=== PATIENT | male | born 1960 | race Caucasian/White ===

== ENCOUNTER → 2021-10-01 14:00 | Outpatient (BNVA) | payer OTHER, SELFPAY | PROVIDERS: PCP Internal Medicine; Visit Provider Nurse Practitioner Family | DX: F07.81 Postconcussional syndrome (principal); R42 Dizziness and giddiness; R51.9 Headache, unspecified; F09 Unspecified mental disorder due to known physiological condition | CPT/HCPCS: 99212 ==

== ENCOUNTER → 2021-11-24 14:48 | Outpatient (BNVA) | payer OTHER, SELFPAY | PROVIDERS: PCP Internal Medicine; Visit Provider Nurse Practitioner Family | DX: Z13.89 Encounter for screening for other disorder (principal) ==

== ENCOUNTER → 2022-01-29 14:56 | Outpatient (BNVA) | payer OTHER, SELFPAY | PROVIDERS: PCP Internal Medicine; Visit Provider Nurse Practitioner Family | DX: F07.81 Postconcussional syndrome (principal); F09 Unspecified mental disorder due to known physiological condition; R51.9 Headache, unspecified; R42 Dizziness and giddiness | CPT/HCPCS: 99212 ==

== ENCOUNTER → 2022-03-25 08:54 | Outpatient (BNVA) | payer OTHER, SELFPAY | PROVIDERS: PCP Internal Medicine; Visit Provider Nurse Practitioner Family | DX: F07.81 Postconcussional syndrome (principal); F09 Unspecified mental disorder due to known physiological condition; R51.9 Headache, unspecified; R42 Dizziness and giddiness | CPT/HCPCS: 99212 ==

== ENCOUNTER → 2022-05-22 10:00 | Outpatient (BNVA) | payer OTHER, SELFPAY | PROVIDERS: PCP Internal Medicine; Visit Provider Nurse Practitioner Family | DX: F07.81 Postconcussional syndrome (principal); R42 Dizziness and giddiness; R51.9 Headache, unspecified; R06.83 Snoring; I10 Essential (primary) hypertension; G47.19 Other hypersomnia; F09 Unspecified mental disorder due to known physiological condition | CPT/HCPCS: 99212 ==

== ENCOUNTER → 2022-07-06 09:56 | Outpatient (REF) | payer BC, SELFPAY | LOC: HO.SL 09:56 | PROVIDERS: PCP Internal Medicine; Visit Provider Nurse Practitioner Family | DX: Z13.89 Encounter for screening for other disorder (principal) ==

== ENCOUNTER → 2022-07-27 10:23 | Outpatient (BNVA) | payer OTHER, BC, SELFPAY | PROVIDERS: PCP Internal Medicine; Visit Provider Nurse Practitioner Family | DX: F07.81 Postconcussional syndrome (principal); F09 Unspecified mental disorder due to known physiological condition | CPT/HCPCS: 99212 ==

== ENCOUNTER → 2022-11-25 08:03 | Outpatient (BNVA) | payer OTHER, BC, SELFPAY | PROVIDERS: PCP Internal Medicine; Visit Provider Nurse Practitioner Family | DX: F07.81 Postconcussional syndrome (principal); R51.9 Headache, unspecified | CPT/HCPCS: 99212 ==

== ENCOUNTER 2022-12-21 13:00 | Outpatient (RCR) | payer OTHER, SELFPAY ==
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
== END 2023-01-06 11:11 | disposition still patient (30) ==
LOC: HO.SH 13:00
PROVIDERS: Visit Provider Nurse Practitioner Family
DX: R41.841 Cognitive communication deficit (principal); F07.81 Postconcussional syndrome; F09 Unspecified mental disorder due to known physiological condition
CPT/HCPCS: 96125

== ENCOUNTER 2023-04-08 11:00 | Outpatient (RCR) | payer OTHER, SELFPAY ==
--- NOTE | 2023-01-28 11:47 | MHC.SPEECHCO ---
Pt called on 01/27 to cancel visit for 01/28 stating that he was sick.
== END 2023-08-11 15:56 | disposition home or self-care (01) ==
LOC: HO.SH 11:00
PROVIDERS: Visit Provider Nurse Practitioner Family
DX: R41.841 Cognitive communication deficit (principal)
CPT/HCPCS: 92507

== ENCOUNTER 2023-05-19 11:13 | Outpatient (AMB) | payer OTHER, SELFPAY ==
[2023-05-19 11:16] VITALS: BP 118/92; PULSE 72; O2SAT 95; BMI 31.1
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
== END 2023-05-19 13:15 | disposition home or self-care (01) ==
PROVIDERS: Visit Provider Nurse Practitioner Family
DX: R51.9 Headache, unspecified (principal); R41.89 Other symptoms and signs involving cognitive functions and awareness; F07.81 Postconcussional syndrome
CPT/HCPCS: 99214

== ENCOUNTER → 2023-05-19 11:13 | Outpatient (BNVA) | payer OTHER, SELFPAY | PROVIDERS: Visit Provider Nurse Practitioner Family | DX: F07.81 Postconcussional syndrome (principal); F09 Unspecified mental disorder due to known physiological condition; Z79.899 Other long term (current) drug therapy | CPT/HCPCS: 99212 ==

== ENCOUNTER 2023-08-02 13:41 | Outpatient (AMB) | payer OTHER, SELFPAY ==
[2023-08-02 14:11] VITALS: BP 114/82; PULSE 61; O2SAT 97; BMI 31.6
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
== END 2023-08-02 15:35 | disposition home or self-care (01) ==
PROVIDERS: PCP Internal Medicine; Visit Provider Nurse Practitioner Family
DX: Z04.3 Encounter for examination and observation following other accident (principal); F07.81 Postconcussional syndrome; G44.309 Post-traumatic headache, unspecified, not intractable; Z73.6 Limitation of activities due to disability
CPT/HCPCS: 99214

== ENCOUNTER → 2023-08-02 13:41 | Outpatient (BNVA) | payer OTHER, SELFPAY | PROVIDERS: PCP Internal Medicine; Visit Provider Nurse Practitioner Family | DX: F07.81 Postconcussional syndrome (principal); F09 Unspecified mental disorder due to known physiological condition; R51.9 Headache, unspecified; R42 Dizziness and giddiness; Z79.899 Other long term (current) drug therapy | CPT/HCPCS: 99212 ==

== ENCOUNTER 2024-01-12 13:14 | Outpatient (AMB) | payer OTHER, SELFPAY ==
[2024-01-12 13:34] VITALS: BP 128/88; PULSE 60; O2SAT 97; BMI 30.8
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
== END 2024-01-12 14:51 | disposition home or self-care (01) ==
PROVIDERS: PCP Internal Medicine; Visit Provider Nurse Practitioner Family
DX: F07.81 Postconcussional syndrome (principal); F09 Unspecified mental disorder due to known physiological condition; R90.82 White matter disease, unspecified; R53.83 Other fatigue
CPT/HCPCS: 99214

== ENCOUNTER → 2024-01-12 13:14 | Outpatient (BNVA) | payer OTHER, SELFPAY | PROVIDERS: PCP Internal Medicine; Visit Provider Nurse Practitioner Family | DX: F09 Unspecified mental disorder due to known physiological condition (principal); R53.83 Other fatigue; R93.0 Abnormal findings on diagnostic imaging of skull and head, not elsewhere classified; F07.81 Postconcussional syndrome; Z79.899 Other long term (current) drug therapy | CPT/HCPCS: 99212 ==

== ENCOUNTER 2024-02-08 14:48 | Outpatient (REF) | payer OTHER, SELFPAY ==
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
[2024-02-08] MEDS: gadobutroL 10 ML VIAL IVPUSH (15:50)
== END 2024-02-08 14:49 | disposition home or self-care (01) ==
LOC: HO.MRI 14:48
PROVIDERS: PCP Internal Medicine; Visit Provider Nurse Practitioner Family
DX: F09 Unspecified mental disorder due to known physiological condition (principal); F07.81 Postconcussional syndrome; I10 Essential (primary) hypertension
CPT/HCPCS: 70553; A9585

== ENCOUNTER 2024-05-03 07:36 | Outpatient (AMB) | payer OTHER, SELFPAY ==
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
[2024-05-03 07:47] VITALS: BP 118/78; PULSE 68; O2SAT 98; BMI 30.1
== END 2024-05-03 08:39 | disposition home or self-care (01) ==
PROVIDERS: PCP Internal Medicine; Visit Provider Nurse Practitioner Family
DX: F07.81 Postconcussional syndrome (principal); R42 Dizziness and giddiness; F32.A Depression, unspecified; F41.9 Anxiety disorder, unspecified; F43.20 Adjustment disorder, unspecified
CPT/HCPCS: 99214; G2211

== ENCOUNTER → 2024-05-03 07:36 | Outpatient (BNVA) | payer OTHER, SELFPAY | PROVIDERS: PCP Internal Medicine; Visit Provider Nurse Practitioner Family | DX: F07.81 Postconcussional syndrome (principal); F09 Unspecified mental disorder due to known physiological condition; R42 Dizziness and giddiness; F32.A Depression, unspecified; F41.9 Anxiety disorder, unspecified; S09.90XS Unspecified injury of head, sequela; F43.20 Adjustment disorder, unspecified; Z79.899 Other long term (current) drug therapy | CPT/HCPCS: 99212 ==

== ENCOUNTER 2024-05-03 08:40 | Outpatient (REF) | payer OTHER, SELFPAY ==
[2024-05-03 17:40] LABS: MANUAL DIFF FLAG NO
[2024-05-03 17:47] LABS: Basophils Absolute Auto 0.1 X10*3/uL (0.0-0.2); Eosinophils Absolute Auto 0.6 X10*3/uL (0.0-0.4); Eosinophils Percent Auto 9.5 % (0-4); Hemoglobin 13.4 g/dl (14.0-18.0); Imm Gran Abs Auto 0.02 X10*3/uL (0.00-0.03); Imm Gran Pct Auto 0.3 % (0.0-0.4); Lymphocytes Absolute Auto 2.1 X10*3/uL (1.2-4.9); Lymphocytes Percent Auto 33.9 % (20-40); Mean Corpuscular HGB Conc 35.3 g/dl (31.0-36.0); Mean Corpuscular Hemoglobin 29.7 pg (27.0-33.0); Mean Corpuscular Volume 84.3 fL (80.0-98.0); Mean Platelet Volume 11.2 fL (9.4-12.4); Monocytes Absolute Auto 0.4 X10*3/uL (0.1-1.2); Monocytes Percent Auto 6.3 % (2-11); Platelet Count 226 X10*3/uL (160-400); Red Blood Count 4.51 X10*6/uL (4.60-5.80); Red Cell Distribution Width 12.7 % (11.0-16.0); White Blood Count 6.2 X10*3/uL (4.8-10.8)
[2024-05-03 18:03] LABS: Estimated Average Glucose 117 mg/dL; Hemoglobin A1c % 5.7 % (<6.0); Total Hemoglobin (HGBA1C) 3340.9533 umol/L
[2024-05-03 18:10] LABS: Alanine Aminotransferase 22 U/L (0-40); Albumin Level 4.5 g/dL (3.5-5.0); Alkaline Phosphatase 78 U/L (39-117); Anion Gap 13 (12-20); Aspartate Amino Transferase 23 U/L (5-37); Bilirubin Total 0.4 mg/dL (0.0-1.0); Blood Urea Nitrogen 15 mg/dL (9-16); Carbon Dioxide 30 mmol/L (22-29); Chloride 100 mmol/L (96-108); Estimated Glomerular Filt Rate > 60; Glucose Random 109 mg/dL (60-115); Sodium 140 mmol/L (135-145); Total Protein 8.5 g/dL (6.5-8.0)
[2024-05-03 18:12] LABS: Rheumatoid Factor < 13.0 IU/mL (<15.0)
[2024-05-03 18:26] LABS: TSH reflex Free T4 3.61 uIU/mL (0.32-4.0)
[2024-05-03 18:41] LABS: Vitamin B12 376 pg/mL (200-900)
[2024-05-03 20:04] LABS: Erythrocyte Sedimentation Rate 23 MM/HR (0-15)
[2024-05-04 07:40] LABS: Syphilis Screen Nonreactive (Nonreactive)
[2024-05-04 07:44] LABS: HIV AB/AG Nonreactive (Nonreactive); HIV Num 1 0.04 S/CO (0.00-0.99)
[2024-05-05 00:49] LABS: CRP High Sensitivity 3.5 mg/L
[2024-05-05 14:03] LABS: Anti Nuclear Antibody Screen NEGATIVE (NEGATIVE)
[2024-05-07 03:54] LABS: Methylmalonic Acid 157 nmol/L (69-390)
[2024-05-08 16:48] LABS: Vitamin D 25-OH, D2 <4 ng/mL; Vitamin D 25-OH, D3 36 ng/mL; Vitamin D 25-OH, Total 36 ng/mL (30-100)
== END 2024-05-03 08:41 | disposition home or self-care (01) ==
LOC: HO.HKASLDS 08:40
PROVIDERS: Visit Provider Nurse Practitioner Family
DX: F09 Unspecified mental disorder due to known physiological condition (principal); R53.83 Other fatigue; I10 Essential (primary) hypertension; R93.0 Abnormal findings on diagnostic imaging of skull and head, not elsewhere classified; Z13.1 Encounter for screening for diabetes mellitus
CPT/HCPCS: 36415; 80053; 82306; 82607; 82746; 83036; 83090; 83921; 84443; 85025; 85652; 86038; 86141; 86431; 86780; 87389

== ENCOUNTER 2024-06-13 10:42 | Outpatient (AMB) | payer OTHER, SELFPAY ==
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
== END 2024-06-13 15:21 | disposition home or self-care (01) ==
LOC: HO.HOP 10:42
PROVIDERS: PCP Internal Medicine; Visit Provider Clinical Nurse Specialist Psychiatric/Mental Health
DX: F07.81 Postconcussional syndrome (principal); F09 Unspecified mental disorder due to known physiological condition; F32.A Depression, unspecified; S09.90XA Unspecified injury of head, initial encounter
CPT/HCPCS: 90792

== ENCOUNTER 2024-06-13 10:42 | Outpatient (REF) | payer OTHER, SELFPAY ==
[2024-06-13 12:33] LABS: MANUAL DIFF FLAG NO
[2024-06-13 13:46] LABS: Basophils Absolute Auto 0.1 X10*3/uL (0.0-0.2); Basophils Percent Auto 1.2 % (0-2); Eosinophils Absolute Auto 0.9 X10*3/uL (0.0-0.4); Eosinophils Percent Auto 12.3 % (0-4); Hematocrit 42.3 % (42.0-52.0); Hemoglobin 14.5 g/dl (14.0-18.0); Imm Gran Abs Auto 0.01 X10*3/uL (0.00-0.03); Imm Gran Pct Auto 0.1 % (0.0-0.4); Lymphocytes Absolute Auto 1.9 X10*3/uL (1.2-4.9); Mean Corpuscular HGB Conc 34.3 g/dl (31.0-36.0); Mean Corpuscular Hemoglobin 29.2 pg (27.0-33.0); Mean Corpuscular Volume 85.1 fL (80.0-98.0); Mean Platelet Volume 11.2 fL (9.4-12.4); Monocytes Absolute Auto 0.5 X10*3/uL (0.1-1.2); Monocytes Percent Auto 6.4 % (2-11); Platelet Count 257 X10*3/uL (160-400); Red Blood Count 4.97 X10*6/uL (4.60-5.80); Red Cell Distribution Width 12.6 % (11.0-16.0); White Blood Count 7.3 X10*3/uL (4.8-10.8)
[2024-06-13 14:22] LABS: Alanine Aminotransferase 40 U/L (0-40); Albumin Level 4.6 g/dL (3.5-5.0); Alkaline Phosphatase 78 U/L (39-117); Anion Gap 16 (12-20); Aspartate Amino Transferase 35 U/L (5-37); Bilirubin Total 0.4 mg/dL (0.0-1.0); Blood Urea Nitrogen 16 mg/dL (9-16); Calcium 10.1 mg/dL (8.4-10.2); Carbon Dioxide 27 mmol/L (22-29); Chloride 101 mmol/L (96-108); Estimated Glomerular Filt Rate > 60; Glucose Random 129 mg/dL (60-115); Sodium 141 mmol/L (135-145); Total Protein 8.6 g/dL (6.5-8.0)
[2024-06-13 14:44] LABS: Folate 9.4 ng/mL (> or = 4.0); Vitamin B12 464 pg/mL (200-900)
[2024-06-13 14:54] LABS: Potassium 2.7 mmol/L (3.3-5.1)
[2024-06-18 14:44] LABS: Vitamin D 25-OH, D2 <4 ng/mL; Vitamin D 25-OH, D3 27 ng/mL; Vitamin D 25-OH, Total 27 ng/mL (30-100)
== END 2024-06-13 10:43 | disposition home or self-care (01) ==
LOC: HO.LAB 10:42
PROVIDERS: PCP Internal Medicine; Visit Provider Clinical Nurse Specialist Psychiatric/Mental Health
DX: F07.81 Postconcussional syndrome (principal); F09 Unspecified mental disorder due to known physiological condition
CPT/HCPCS: 36415; 80053; 82306; 82607; 82746; 85025

== ENCOUNTER 2024-08-29 08:09 | Outpatient (REF) | payer OTHER, SELFPAY ==
[2024-08-29 17:22] LABS: MANUAL DIFF FLAG NO
[2024-08-29 17:31] LABS: Basophils Absolute Auto 0.1 X10*3/uL (0.0-0.2); Basophils Percent Auto 1.4 % (0-2); Eosinophils Absolute Auto 0.7 X10*3/uL (0.0-0.4); Eosinophils Percent Auto 10.2 % (0-4); Hemoglobin 13.4 g/dl (14.0-18.0); Imm Gran Abs Auto 0.02 X10*3/uL (0.00-0.03); Imm Gran Pct Auto 0.3 % (0.0-0.4); Lymphocytes Absolute Auto 1.8 X10*3/uL (1.2-4.9); Lymphocytes Percent Auto 28.4 % (20-40); Mean Corpuscular HGB Conc 34.4 g/dl (31.0-36.0); Mean Corpuscular Hemoglobin 28.9 pg (27.0-33.0); Mean Corpuscular Volume 84.1 fL (80.0-98.0); Mean Platelet Volume 10.7 fL (9.4-12.4); Monocytes Absolute Auto 0.4 X10*3/uL (0.1-1.2); Monocytes Percent Auto 6.3 % (2-11); Neutrophils Absolute Auto 3.4 x10*3/uL (2.0-8.3); Neutrophils Percent Auto 53.4 % (45-73); Platelet Count 261 X10*3/uL (160-400); Red Blood Count 4.64 X10*6/uL (4.60-5.80); Red Cell Distribution Width 14.2 % (11.0-16.0); White Blood Count 6.4 X10*3/uL (4.8-10.8)
[2024-08-29 17:38] LABS: Alanine Aminotransferase 21 U/L (0-40); Albumin Level 4.3 g/dL (3.5-5.0); Alkaline Phosphatase 69 U/L (39-117); Anion Gap 8 (12-20); Aspartate Amino Transferase 30 U/L (5-37); Bilirubin Total 0.5 mg/dL (0.0-1.0); Blood Urea Nitrogen 17 mg/dL (9-16); Carbon Dioxide 29 mmol/L (22-29); Chloride 105 mmol/L (96-108); Estimated Glomerular Filt Rate > 60; Glucose Random 123 mg/dL (60-115); Potassium 3.7 mmol/L (3.3-5.1); Sodium 138 mmol/L (135-145); Total Protein 7.9 g/dL (6.5-8.0)
[2024-08-29 18:11] LABS: Folate 8.4 ng/mL (> or = 4.0); Vitamin B12 359 pg/mL (200-900)
[2024-09-02 11:38] LABS: Methylmalonic Acid 171 nmol/L (69-390)
[2024-09-04 13:49] LABS: Vitamin B1 8 nmol/L (8-30)
[2024-09-04 15:24] LABS: Vitamin D 25-OH, D2 <4 ng/mL; Vitamin D 25-OH, D3 15 ng/mL; Vitamin D 25-OH, Total 15 ng/mL (30-100)
== END 2024-08-29 08:10 | disposition home or self-care (01) ==
LOC: HO.HKASLDS 08:09
PROVIDERS: PCP Internal Medicine; Visit Provider Nurse Practitioner Family
DX: F07.81 Postconcussional syndrome (principal); F09 Unspecified mental disorder due to known physiological condition; R42 Dizziness and giddiness; F32.A Depression, unspecified; S09.90XS Unspecified injury of head, sequela; F41.9 Anxiety disorder, unspecified; F43.20 Adjustment disorder, unspecified; Z79.899 Other long term (current) drug therapy; E53.8 Deficiency of other specified B group vitamins; E55.9 Vitamin D deficiency, unspecified; I10 Essential (primary) hypertension; Z86.39 Personal history of other endocrine, nutritional and metabolic disease
CPT/HCPCS: 36415; 80053; 82306; 82607; 82746; 83921; 84425; 85025; 99212

== ENCOUNTER 2024-08-29 08:09 | Outpatient (AMB) | payer OTHER, SELFPAY ==
[2024-08-29 08:10] VITALS: BP 112/64; PULSE 72; O2SAT 91; BMI 31.7
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
== END 2024-08-29 09:15 | disposition home or self-care (01) ==
PROVIDERS: PCP Internal Medicine; Visit Provider Nurse Practitioner Family
DX: F07.81 Postconcussional syndrome (principal); F09 Unspecified mental disorder due to known physiological condition; R42 Dizziness and giddiness; F32.A Depression, unspecified; S09.90XA Unspecified injury of head, initial encounter; F41.9 Anxiety disorder, unspecified; F43.20 Adjustment disorder, unspecified
CPT/HCPCS: 99214

== ENCOUNTER 2025-01-24 12:56 | Outpatient (AMB) | payer OTHER, SELFPAY ==
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
[2025-01-24 13:11] VITALS: BP 120/72; PULSE 72; O2SAT 95; BMI 29.1
--- OUTSIDE RECORDS SUMMARY | 2025-01-24 14:28 | XMS_ITS | Patient Health Record ---
Author Organization [facility] [address] Address [address] [place] [address] Care Team Providers Care Parimutuel Cashier Name Role Phone RIAN SHAVER Unavailable [phone] Allergies No Known Allergies Results Component Value Reference Range Notes Comp. Metabolic Panel [id number] Reviewed date:06/27/2024 10:06:21 AM Interpretation: Performing Lab:[facility] [place], [facility], Phone - [phone], Director - MDJodry Notes/Report: Glucose 119 70-99 mg/dL BUN 16 8-27 mg/dL Creatinine 1.03 0.76-1.27 mg/dL eGFR 82 >59 mL/min/1.73 BUN/Creatinine Ratio 16 10-24 Sodium 139 134-144 mmol/L Potassium 3.2 3.5-5.2 mmol/L Chloride 99 96-106 mmol/L Carbon Dioxide, Total 25 20-29 mmol/L Calcium 9.9 8.6-10.2 mg/dL Protein, Total 7.6 6.0-8.5 g/dL Albumin 4.4 3.9-4.9 g/dL Globulin, Total 3.2 1.5-4.5 g/dL Bilirubin, Total <0.2 0.0-1.2 mg/dL Alkaline Phosphatase 90 44-121 IU/L AST (SGOT) 23 0-40 IU/L ALT (SGPT) 28 0-44 IU/L Magnesium-[id number] Reviewed date:06/27/2024 08:23:11 AM Interpretation: Performing Lab:[facility], [employer], [place], Phone - [phone], Director - MDJodry Notes/Report: Magnesium 1.7 1.6-2.3 mg/dL CREATININE WITH GFR Reviewed date:05/26/2024 12:00:40 PM Interpretation: Performing Lab: Notes/Report: CREAT 1.10 0.7-1.3 mg/dL GLOMERULAR FILTRATION RATE 76 >60 This eGFR result was calculated using the CKD-EPI 2020 Creatinine Equation BUN Reviewed date:05/26/2024 12:00:40 PM Interpretation: Performing Lab: Notes/Report: Original Ordering Provider: GREY BROWN PA-C BUN 16 5-25 mg/dL PROSTATIC SPECIFIC ANTIGEN Reviewed date:05/26/2024 12:00:40 PM Interpretation: Performing Lab: Notes/Report: PROSTATIC SPECIFIC ANTIGEN 0.7 0.0-4.0 ng/mL The Siemens [employer]aur Chemiluminescent Immunoassay is used. Results obtained with different assay methods or kits cannot be used interchangeably. Results cannot be interpreted as absolute evidence of the presence or absence of malignant disease Note [employer], a member of [address] [address] Fuse Assembler - Meseret Zamora MD Reason For Referral Reason evaluate & treat Diagnosis 1 Eczema, unspecified type (L30.9) Referral Organization [facility] [address] Referring Provider First Name RIAN Referring Provider Last Name CHHAYA Referring Provider Speciality Internal M edicine Referred Provider Specialty Dermatology Clinical Notes Karen Jones 03/17 01:46:10 PM > faxed pt info to [facility] P) [phone], F) [phone]., Naa Hutson 04/11/2024 02:43:58 PM > refaxedHaresh Redena 05/04/2024 11:54:08 AM > The office confirmed receipt of referral. They have left a voicemail for the patient but no callback as of yet Referral Priority Routine Medications Medication SIG (Take, Route, Frequency, Duration) Notes Start Date End Date Status Lac-Hydrin Five 5 % 1 application Externally Twice a day for 30 days Active Lexapro 10 MG 1 tablet Orally Once a day Active hydroCHLOROthiazide 25 MG TAKE 1 TABLET BY MOUTH EVERY DAY IN THE MORNING FOR 90 DAYS for 90 Active Emgality 120 MG/ML as directed Subcutaneous Active Losartan Potassium 100 MG TAKE 1 TABLET BY MOUTH EVERY DAY FOR 90 DAYS for 90 Active Albuterol Sulfate (2.5 MG/3ML) 0.083% 3 ml as needed Inhalation every 6 hrs for 30 day(s) 12/16/2021 Active Furosemide 20 MG TAKE 1 TABLET BY MOUTH EVERY DAY FOR 30 DAYS for 90 Active Albuterol Sulfate HFA 108 (90 Base) MCG/ACT 2 puff as needed Inhalation every 4 hrs for 30 days As needed shortness of breath 12/08/2023 Active Testosterone Cypionate 100 MG/ML 1 mL Intramuscular weekly for 30 days Active amLODIPine Besylate 5 MG TAKE 1 TABLET B Y MOUTH EVERY DAY FOR 30 DAYS for 90 days Active Ammonium Lactate 12 % 1 application Externally Twice a day for 30 days Active Simvastatin 20 MG TAKE 1 TABLET BY MOUTH EVERY DAY IN THE EVENING FOR 90 DAYS for 90 days Active Xyosted 100 MG/0.5ML 100 mg Subcutaneous every 14 days for 30 days 10/28/2023 Not-Taking Qulipta 30 MG 1 tablet Orally Once a day for 30 days 04/06/2024 Active Betamethasone Dipropionate 0.05 % 1 application Externally Once a day for 30 days 04/06/2024 Active Lansoprazole 30 MG 1 capsule before a meal Orally twice daily for 90 days Active Social History Tobacco Use: Social History Observation Description Date Details (start date - stop date) Never Smoker NA - NA Tobacco Use/Smoking Question Answer Notes Are you a nonsmoker Section Notes: Nonsmoker ETOH: None Drugs: None 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 Nonsmoker ETOH: None Drugs: None 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 Nonsmoker ETOH: None Drugs: None 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 Nonsmoker ETOH: None Drugs: None 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 Nonsmoker ETOH: None Drugs: None 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 Nonsmoker ETOH: None Drugs: None 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 Nonsmoker ETOH: None Drugs: None 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 Nonsmoker ETOH: None Drugs: None 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 Nonsmoker ETOH: None Drugs: None 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 Problems Problem Type SNOMED Code ICD Code Onset Dates Problem Status W/U Status Risk Notes Problem Hypothyroidism (78666572) Hypothyroidism, unspecified (E03.9) Active confirmed Problem 821991766 Testicular hypofunction (E29.1) Active confirmed Problem 85274498 Vitamin D deficiency, unspecified (E55.9) Active confirmed Problem 85552554 Generalized anxi ety disorder (F41.1) Active confirmed Problem 57341884 Essential (prima ry) hypertension (I10) Active confirmed Problem 014896809 Other male erect ile dysfunction (N52.8) Active confirmed Problem 089714780 Encounter for screening for diabetes mellitus (Z13.1) Active confirmed Problem Prediabetes (228872903) Prediabetes (R73.03) Active confirmed Problem Renal cyst (239835668) Renal cyst (N28.1) Active confirmed Problem 31104740 Hyperlipidemia, unspecified hyperlipidemia type (E78.5) Active confirmed Problem Adult health examination (571078173) Adult general medical exam (Z00.00) Active confirmed Problem 83421826 Hypothyroidism, unspecified type (E03.9) Active confirmed Problem 100176693 Annual physical exam (Z00.00) Active confirmed Problem 988968795 Insomnia, unspecified type (G47.00) Active confirmed Problem 571599741 SOB (shortness o f breath) (R06.02) Active confirmed Problem Vitamin D deficiency (01091492) Vitamin D deficiency (E55.9) Active confirmed Problem 61992180 Hypogonadism in male (E29.1) Active confirmed Problem Accelerated essential hypertension (49196814) Accelerated essential hypertension (I10) Active confirmed Problem Diabetes mellitus screening (097015065) Diabetes mellitus screening (Z13.1) Active confirmed Problem 657747166 COVID-19 (U07.1) Active confirmed Problem Agitation (25152121) Agitation (R45.1) Active confirmed Problem 692257271 Gastroesophageal reflux disease, unspecified whether esophagitis present (K21.9) Active confirmed Problem Eczema (12181805) Eczema, unspec ified type (L30.9) Active confirmed Problem Asthenia (80391833) Asthenia (R53.1) Active confirmed Problem Vitamin B>12< deficiency anaemia (39335627) Anemia due to vitamin B12 deficiency, unspecified B12 deficiency type (D51.9) Active confirmed Problem 58182755 Primary hypertension (I10) Active confirmed Problem 315797958 Moderate episode of recurrent major depressive disorder (F33.1) Active confirmed Problem 1391595 Hypoganglionosis (Q43.1) Active confirmed Problem Major depression, single episode (93078089) Current episode of major depressive disorder without prior episode, unspecified depression episode severity (F32.9) Active confirmed Problem 158843712 Traumatic brain injury, without loss of consciousness, initial encounter (S06.9X0A) Active confirmed Problem Primary malignant neoplasm of kidney (50324118) Renal cell carcinoma, unspecified laterality (C64.9) Active confirmed Problem 08629634 Cough, unspecifi ed type (R05.9) Active confirmed Problem Elevated fasting lipid profile (318025632600) Elevated lipids (E78.5) Active confirmed Problem Screening for malignant neoplasm of prostate (228282511) Encounter for prostate cancer screening (Z12.5) Active confirmed Problem Acute hypokalemia (01531893) Acute hypokalemia (E87.6) Active confirmed Vital Signs Heart Rate 69 /min 01/23/2025 Oximetry 98 % 01/23/2025 Blood pressure diastolic 70 mm Hg 01/23/2025 Height 70 in 01/23/2025 Blood pressure systolic 120 mm Hg 01/23/2025 Weight 232.4 lbs 01/23/2025 BMI 33.34 kg/m2 01/23/2025 Encounters Encounter Location Date Provider Diagnosis [address] [address] 02/07/2024 RAIN SHAVER Close exposure to 20 19 novel coronavirus Z20.822 ; Traumatic brain injury, without loss of consciousness, initial encounter S06.9X0A ; Agitation R45.1 ; Essential (primary) hypertension I10 ; Current episode of major depressive disorder without prior episode, unspecified depression episode severity F32.9 ; B12 deficiency E53.8 and Acute cough R05.[address] [address] 04/06/2024 RIAN SHAVER Traumatic brain inju ry, without loss of consciousness, initial encounter S06.9X0A ; Agitation R45.1 ; Essential (primary) hypertension I10 ; Current episode of major depressive disorder without prior episode, unspecified depression episode severity F32.9 and B12 deficiency E53.8 [facility] [address] [place] [address] 06/26/2024 RIAN SHAVER Traumatic brain inju ry, without loss of consciousness, initial encounter S06.9X0A ; Hypokalemia E87.6 ; Agitation R45.1 ; Essential (primary) hypertension I10 and Current episode of major depressive disorder without prior episode, unspecified depression episode severity F32.[address] [facility] [address] [place] [address] 09/26/2024 RIAN SHAVER Shortness of breath R06.02 ; Annual physical exam Z00.00 ; Essential (primary) hypertension I10 ; Hypogonadism in male E29.1 ; Traumatic brain injury, without loss of consciousness, initial encounter S06.9X0A ; Current episode of major depressive disorder without prior episode, unspecified depression episode severity F32.9 and B12 deficiency E53.[address] [facility] [address] [place] [address] 01/23/2025 RIAN SHAVER Essential (primary) hypertension I10 ; Traumatic brain injury, without loss of consciousness, initial encounter S06.9X0A ; Hypogonadism in male E29.1 ; Current episode of major depressive disorder without prior episode, unspecified depression episode severity F32.9 ; B12 deficiency E53.8 and Encounter for examination of blood pressure without abnormal findings Z01.30 [facility] [address] [place] [address] 02/07/2024 RIAN CHHAYA [facility] [address] [place] [address] 02/09/20[address] RIAN CHHAYA [facility] [address] [place] [address] 04/25/2024 RIAN CHHAYA [facility] [address] [place] [address] 04/26/2024 RIAN CHHAYA [facility] [address] [place] [address] 04/27/2024 RIAN CHHAYA [facility] [address] [place] [address] 05/26/2024 RIAN CHHAYA [facility] [address] [place] [address] 06/14/2024 RIAN CHHAYA [facility] [address] [place] [address] 06/21/2024 RIAN CHHAYA [facility] [address] [place] [address] 06/27/2024 RIAN CHHAYA [facility] [address] [place] [address] 09/26/2024 RIAN SHAVER Assessments Encounter Date Diagnosis (ICD Code) Assessment Notes Treatment Notes Treatment Clinical Notes Section Notes 02/07/2024 Traumatic brain injury, without loss of consciousness, initial encounter (ICD-10 - S06.9X0A) #Hypertension: Compliant with amlodipine and losartan/HCTZ. BP well controlled. Some adjustments were made to blood pressure medication secondary to hypotension. Dr. Child saw the patient. Blood pressure is overall stable in office today. # TBI/forgetfullness. Patient is significantly frustrated by this issue. Lexapro did not help, and Adderall increases agitation and behavior. Patient is followed by Ondina Syed over at the neurology office. Patient expressed a long concern for his increased forgetfulness and agitation. Unfortunately was not much left to offer. #hypogonadism. Trialed tesosterone, pt reports it helps him feel more like a man but states his mood wasn't all that different # URI sx. Neg for COVID/Flu/RSV. Will treat with Azithromcyin # Case discussed with collaborating physician Ellie Toussaint who reviewed the assessment and plan. Chart, medications, labs, vital signs reviewed. Dictation was accomplished with the use of [employer] 3[employer] voice recognition software, prone to medical misidentifications and grammatical errors. This is unintentional and the practitioner does try to identify and correct these, but some could still be present. Please do not hesitate to contact practitioner for clarification. All questions answered to patients satisfaction. Patient verbalized understanding of diagnosis and treatments explained. To call sooner prior to next visit it any questions/concerns arise. 02/07/2024 Close exposure to 2019 novel coronavirus (ICD-10 - Z20.822) #Hypertension: Compliant with amlodipine and losartan/HCTZ. BP well controlled. Some adjustments were made to blood pressure medication secondary to hypotension. Dr. Child saw the patient. Blood pressure is overall stable in office today. # TBI/forgetfullness. Patient is significantly frustrated by this issue. Lexapro did not help, and Adderall increases agitation and behavior. Patient is followed by Ondina Syed over at the neurology office. Patient expressed a long concern for his increased forgetfulness and agitation. Unfortunately was not much left to offer. #hypogonadism. Trialed tesosterone, pt reports it helps him feel more like a man but states his mood wasn't all that different # URI sx. Neg for COVID/Flu/RSV. Will treat with Azithromcyin # Case discussed with collaborating physician Ellie Toussaint who reviewed the assessment and plan. Chart, medications, labs, vital signs reviewed. Dictation was accomplished with the use of [employer] voice recognition software, prone to medical misidentifications and grammatical errors. This is unintentional and the practitioner does try to identify and correct these, but some could still be present. Please do not hesitate to contact practitioner for clarification. All questions answered to patients satisfaction. Patient verbalized understanding of diagnosis and treatments explained. To call sooner prior to next visit it any questions/concerns arise. 04/06/2024 Agitation (ICD-10 - R45.1) #Hypertension Taken off of all meds except HCTZ due to BP being in 70's/80's/BP wel controlled todya # TBI/forgetfullness. Patient is significantly frustrated by this issue. Lexapro did not help, and Adderall increases agitation and behavior. Patient is followed by Ondina austin at the neurology office. Patient expressed a long concern for his increased forgetfulness and agitation. Unfortunately was not much left to offer. #hypogonadism. Trialed tesosterone, pt reports it helps him feel more like a man but states his mood wasn't all that different Case discussed with collaborating physician Ellie Toussaint who reviewed the assessment and plan. Chart, medications, labs, vital signs reviewed. Dictation was accomplished with the use of [employer] voice recognition software, prone to medical misidentifications and grammatical errors. This is unintentional and the practitioner does try to identify and correct these, but some could still be present. Please do not hesitate to contact practitioner for clarification. All questions answered to patients satisfaction. Patient verbalized understanding of diagnosis and treatments explained. To call sooner prior to next visit it any questions/concerns arise. 04/06/2024 Traumatic brain injury, without loss of consciousness, initial encounter (ICD-10 - S06.9X0A) #Hypertension Taken off of all meds except HCTZ due to BP being in 70's/80's/BP wel controlled todya # TBI/forgetfullness. Patient is significantly frustrated by this issue. Lexapro did not help, and Adderall increases agitation and behavior. Patient is followed by Ondina Syed over at the neurology office. Patient expressed a long concern for his increased forgetfulness and agitation. Unfortunately was not much left to offer. #hypogonadism. Trialed tesosterone, pt reports it helps him feel more like a man but states his mood wasn't all that different Case discussed with collaborating physician Ellie Toussaint who reviewed the assessment and plan. Chart, medications, labs, vital signs reviewed. Dictation was accomplished with the use of [employer] voice recognition software, prone to medical misidentifications and grammatical errors. This is unintentional and the practitioner does try to identify and correct these, but some could still be present. Please do not hesitate to contact practitioner for clarification. All questions answered to patients satisfaction. Patient verbalized understanding of diagnosis and treatments explained. To call sooner prior to next visit it any questions/concerns arise. 06/26/2024 Hypokalemia (ICD-10 - E87.6) # Hypokalemia. On Lasix and HCTZ (neither are new). ? Releated to Lexparo (per UptoDate- potenital side effect). CHeck K level. Continue K Cl 10 meq po daily for now. #Hypertension : HCTZ, Amlodipine and Losartan continued # TBI/forgetfullness. Patient is significantly frustrated by this issue. Lexapro did not help, and Adderall increases agitation and behavior. Patient is followed by Ondina Syed over at the neurology office. Patient expressed a long concern for his increased forgetfulness and agitation. Unfortunately was not much left to offer. #hypogonadism. Trialed tesosterone, pt reports it helps him feel more like a man but states his mood wasn't all that different Case discussed with collaborating physician Ellie Toussaint who reviewed the assessment and plan. Chart, medications, labs, vital signs reviewed. Dictation was accomplished with the use of [employer] voice recognition software, prone to medical misidentifications and grammatical errors. This is unintentional and the practitioner does try to identify and correct these, but some could still be present. Please do not hesitate to contact practitioner for clarification. All questions answered to patients satisfaction. Patient verbalized understanding of diagnosis and treatments explained. To call sooner prior to next visit it any questions/concerns arise. 09/26/2024 Shortness of breath (ICD-10 - R06.02) #Hypertension: Compliant with amlodipine and losartan. BP well controlled. #Dry skin, Patient explains that he has had episodes of xerosis on the right hand that is now spreading to his left hand. Will add triamcinolone. Refer to dermatology # Testosterone- was previously on Xyosted, but cannot afford. Recheck CBC and testoserone. # TBI. Ongoing issue, reports not getting better. Consider Aricept? Also consider treating depression. Recommend group therapy/support groups. # Screening. Due for colonoscopy thru [facility] # Vaccines. Does not want flu shot Physical Men Patient seen and examined. Comprehensive discussion was done on the following. 1. Nutrition: It is important to follow a healthy diet based on lots of vegetables and legumes and good fat. Avoid processed food and processed carbohydrates. Learn to prepare your own meals. Learn to read labels and avoid high fructose corn syrup, processed chemicals added to increase shelf life and preprepared meals. Avoid fast foods. Learn to eat slowly and plan meals for a week. Try to count calories and be mindful off daily calorie intake. Get into the habit of keeping an eye on your weight by using an appropriate scale. Learn to log exercise and discussed fitness Apps like AppCard which can help keep log off calories taken versus calories burned. Local food should be preferred. Discussed Dirty Dozen Versus Clean Fifteen. Discussed healthy supplements like fish oil, Tumeric, Curcumin, Melatonin, Resveratrol, Probiotics, Vitamin-D, Alpha-Lipoic acid, Vitamin-D and coconut oil. 2. It is important to exercise regularly. Is a good habit to walk at least 30-45 minutes a day. Gentle weightlifting with standard precautions to protect the back. Finding activity like cycling or hiking and get into the habit of engaging in it. Stretching before and after the exercises important. It is also important to contact me if there are any problems like shortness of breath, chest pain, back pain and joint or muscle pain associated with the exercise. 3. Discussed age appropriate screening guidelines. Colonoscopy needs to start at age 50 with stool for occult blood as appropriate. There is a new test that can test for genetic abnormalities in the stool sample. This would not replace a colonoscopy but could be used as a screening tool for patients who do not want a colonoscopy. We discussed the importance of early detection of colon cancer. 4. Discussed current PSA screening. PSA screening can be done in most patients between age 50 and 65. However early detection of prostate cancer needs to carefully be balanced with complications with treatment. These include incontinence, impotence etc. Each patient should decide if they would like to have this test. 5. Discussed safe driving and no use of smart phone while driving 6. Age-appropriate immunizations were discussed. A tetanus booster is needed every 10 years. Flu vaccine is recommended every year just before the start of the flu season. Shingles vaccine is recommended after age 50 but not all insurances cover it. Pneumonia vaccine is given after age 65 unless there are certain comorbidities for which it is started earlier. 7. Diagnostic labs were discussed. These could include CBC CMP and lipids with fasting blood glucose and insulin levels. Vitamin D and hemoglobin A1c testing might be appropriate. Case discussed with collaborating physician Ellie Toussaint who reviewed the assessment and plan. Chart, medications, labs, vital signs reviewed. Dictation was accomplished with the use of [employer] 3[employer] voice recognition software, prone to medical misidentifications and grammatical errors. This is unintentional and the practitioner does try to identify and correct these, but some could still be present. Please do not hesitate to contact practitioner for clarification. All questions answered to patients satisfaction. Patient verbalized understanding of diagnosis and treatments explained. To call sooner prior to next visit it any questions/concerns arise. 09/26/2024 Annual physical exam (ICD-10 - Z00.00) #Hypertension: Compliant with amlodipine and losartan. BP well controlled. #Dry skin, Patient explains that he has had episodes of xerosis on the right hand that is now spreading to his left hand. Will add triamcinolone. Refer to dermatology # Testosterone- was previously on Xyosted, but cannot afford. Recheck CBC and testoserone. # TBI. Ongoing issue, reports not getting better. Consider Aricept? Also consider treating depression. Recommend group therapy/support groups. # Screening. Due for colonoscopy thru [facility] # Vaccines. Does not want flu shot Physical Men Patient seen and examined. Comprehensive discussion was done on the following. 1. Nutrition: It is important to follow a healthy diet based on lots of vegetables and legumes and good fat. Avoid processed food and processed carbohydrates. Learn to prepare your own meals. Learn to read labels and avoid high fructose corn syrup, processed chemicals added to increase shelf life and preprepared meals. Avoid fast foods. Learn to eat slowly and plan meals for a week. Try to count calories and be mindful off daily calorie intake. Get into the habit of keeping an eye on your weight by using an appropriate scale. Learn to log exercise and discussed fitness Apps like AppCard which can help keep log off calories taken versus calories burned. Local food should be preferred. Discussed Dirty Dozen Versus Clean Fifteen. Discussed healthy supplements like fish oil, Tumeric, Curcumin, Melatonin, Resveratrol, Probiotics, Vitamin-D, Alpha-Lipoic acid, Vitamin-D and coconut oil. 2. It is important to exercise regularly. Is a good habit to walk at least 30-45 minutes a day. Gentle weightlifting with standard precautions to protect the back. Finding activity like cycling or hiking and get into the habit of engaging in it. Stretching before and after the exercises important. It is also important to contact me if there are any problems like shortness of breath, chest pain, back pain and joint or muscle pain associated with the exercise. 3. Discussed age appropriate screening guidelines. Colonoscopy needs to start at age 50 with stool for occult blood as appropriate. There is a new test that can test for genetic abnormalities in the stool sample. This would not replace a colonoscopy but could be used as a screening tool for patients who do not want a colonoscopy. We discussed the importance of early detection of colon cancer. 4. Discussed current PSA screening. PSA screening can be done in most patients between age 50 and 65. However early detection of prostate cancer needs to carefully be balanced with complications with treatment. These include incontinence, impotence etc. Each patient should decide if they would like to have this test. 5. Discussed safe driving and no use of smart phone while driving 6. Age-appropriate immunizations were discussed. A tetanus booster is needed every 10 years. Flu vaccine is recommended every year just before the start of the flu season. Shingles vaccine is recommended after age 50 but not all insurances cover it. Pneumonia vaccine is given after age 65 unless there are certain comorbidities for which it is started earlier. 7. Diagnostic labs were discussed. These could include CBC CMP and lipids with fasting blood glucose and insulin levels. Vitamin D and hemoglobin A1c testing might be appropriate. Case discussed with collaborating physician Ellie Toussaint who reviewed the assessment and plan. Chart, medications, labs, vital signs reviewed. Dictation was accomplished with the use of [employer] 3D voice recognition software, prone to medical misidentifications and grammatical errors. This is unintentional and the practitioner does try to identify and correct these, but some could still be present. Please do not hesitate to contact practitioner for clarification. All questions answered to patients satisfaction. Patient verbalized understanding of diagnosis and treatments explained. To call sooner prior to next visit it any questions/concerns arise. 06/26/2024 Traumatic brain injury, without loss of consciousness, initial encounter (ICD-10 - S06.9X0A) # Hypokalemia. On Lasix and HCTZ (neither are new). ? Releated to Lexparo (per UptoDate- potenital side effect). CHeck K level. Continue K Cl 10 meq po daily for now. #Hypertension : HCTZ, Amlodipine and Losartan continued # TBI/forgetfullness. Patient is significantly frustrated by this issue. Lexapro did not help, and Adderall increases agitation and behavior. Patient is followed by Ondina austin at the neurology office. Patient expressed a long concern for his increased forgetfulness and agitation. Unfortunately was not much left to offer. #hypogonadism. Trialed tesosterone, pt reports it helps him feel more like a man but states his mood wasn't all that different Case discussed with collaborating physician Ellie Toussaint who reviewed the assessment and plan. Chart, medications, labs, vital signs reviewed. Dictation was accomplished with the use of [employer] 3D voice recognition software, prone to medical misidentifications and grammatical errors. This is unintentional and the practitioner does try to identify and correct these, but some could still be present. Please do not hesitate to contact practitioner for clarification. All questions answered to patients satisfaction. Patient verbalized understanding of diagnosis and treatments explained. To call sooner prior to next visit it any questions/concerns arise. 01/23/2025 Essential (primary) hypertension (ICD-10 - I10) #Hypertension: Compliant with amlodipine and losartan. BP well controlled. # Testosterone- was previously on Xyosted, but cannot afford. Recheck CBC and testoserone. # TBI. Ongoing issue, reports not getting better. Consider Aricept? Also consider treating depression. Recommend group therapy/support groups. Consider refer to [facility] Case discussed with collaborating physician Dena Toussaint who reviewed the assessment and plan. Chart, medications, labs, vital signs reviewed. Dictation was accomplished with the use of Dragon voice recognition software, prone to medical misidentifications and grammatical errors. This is unintentional and the practitioner does try to identify and correct these, but some could still be present. Please do not hesitate to contact practitioner for clarification. All questions answered to patients satisfaction. Patient verbalized understanding of diagnosis and treatments explained. To call sooner prior to next visit it any questions/concerns arise. 01/23/2025 Traumatic brain injury, without loss of consciousness, initial encounter (ICD-10 - S06.9X0A) #Hypertension: Compliant with amlodipine and losartan. BP well controlled. # Testosterone- was previously on Xyosted, but cannot afford. Recheck CBC and testoserone. # TBI. Ongoing issue, reports not getting better. Consider Aricept? Also consider treating depression. Recommend group therapy/support groups. Consider refer to [facility] Case discussed with collaborating physician Dena Toussaint who reviewed the assessment and plan. Chart, medications, labs, vital signs reviewed. Dictation was accomplished with the use of [employer] voice recognition software, prone to medical misidentifications and grammatical errors. This is unintentional and the practitioner does try to identify and correct these, but some could still be present. Please do not hesitate to contact practitioner for clarification. All questions answered to patients satisfaction. Patient verbalized understanding of diagnosis and treatments explained. To call sooner prior to next visit it any questions/concerns arise. 01/23/2025 Hypogonadism in male (ICD-10 - E29.1) #Hypertension: Compliant with amlodipine and losartan. BP well controlled. # Testosterone- was previously on Xyosted, but cannot afford. Recheck CBC and testoserone. # TBI. Ongoing issue, reports not getting better. Consider Aricept? Also consider treating depression. Recommend group therapy/support groups. Consider refer to [facility] Case discussed with collaborating physician Dena Toussaint who reviewed the assessment and plan. Chart, medications, labs, vital signs reviewed. Dictation was accomplished with the use of Dragon voice recognition software, prone to medical misidentifications and grammatical errors. This is unintentional and the practitioner does try to identify and correct these, but some could still be present. Please do not hesitate to contact practitioner for clarification. All questions answered to patients satisfaction. Patient verbalized understanding of diagnosis and treatments explained. To call sooner prior to next visit it any questions/concerns arise. 09/26/2024 Essential (primary) hypertension (ICD-10 - I10) #Hypertension: Compliant with amlodipine and losartan. BP well controlled. #Dry skin, Patient explains that he has had episodes of xerosis on the right hand that is now spreading to his left hand. Will add triamcinolone. Refer to dermatology # Testosterone- was previously on Xyosted, but cannot afford. Recheck CBC and testoserone. # TBI. Ongoing issue, reports not getting better. Consider Aricept? Also consider treating depression. Recommend group therapy/support groups. # Screening. Due for colonoscopy thru [facility] # Vaccines. Does not want flu shot Physical Men Patient seen and examined. Comprehensive discussion was done on the following. 1. Nutrition: It is important to follow a healthy diet based on lots of vegetables and legumes and good fat. Avoid processed food and processed carbohydrates. Learn to prepare your own meals. Learn to read labels and avoid high fructose corn syrup, processed chemicals added to increase shelf life and preprepared meals. Avoid fast foods. Learn to eat slowly and plan meals for a week. Try to count calories and be mindful off daily calorie intake. Get into the habit of keeping an eye on your weight by using an appropriate scale. Learn to log exercise and discussed fitness Apps like AppCard which can help keep log off calories taken versus calories burned. Local food should be preferred. Discussed Dirty Dozen Versus Clean Fifteen. Discussed healthy supplements like fish oil, Tumeric, Curcumin, Melatonin, Resveratrol, Probiotics, Vitamin-D, Alpha-Lipoic acid, Vitamin-D and coconut oil. 2. It is important to exercise regularly. Is a good habit to walk at least 30-45 minutes a day. Gentle weightlifting with standard precautions to protect the back. Finding activity like cycling or hiking and get into the habit of engaging in it. Stretching before and after the exercises important. It is also important to contact me if there are any problems like shortness of breath, chest pain, back pain and joint or muscle pain associated with the exercise. 3. Discussed age appropriate screening guidelines. Colonoscopy needs to start at age 50 with stool for occult blood as appropriate. There is a new test that can test for genetic abnormalities in the stool sample. This would not replace a colonoscopy but could be used as a screening tool for patients who do not want a colonoscopy. We discussed the importance of early detection of colon cancer. 4. Discussed current PSA screening. PSA screening can be done in most patients between age 50 and 65. However early detection of prostate cancer needs to carefully be balanced with complications with treatment. These include incontinence, impotence etc. Each patient should decide if they would like to have this test. 5. Discussed safe driving and no use of smart phone while driving 6. Age-appropriate immunizations were discussed. A tetanus booster is needed every 10 years. Flu vaccine is recommended every year just before the start of the flu season. Shingles vaccine is recommended after age 50 but not all insurances cover it. Pneumonia vaccine is given after age 65 unless there are certain comorbidities for which it is started earlier. 7. Diagnostic labs were discussed. These could include CBC CMP and lipids with fasting blood glucose and insulin levels. Vitamin D and hemoglobin A1c testing might be appropriate. Case discussed with collaborating physician Ellie Toussaint who reviewed the assessment and plan. Chart, medications, labs, vital signs reviewed. Dictation was accomplished with the use of [employer] 3[employer] voice recognition software, prone to medical misidentifications and grammatical errors. This is unintentional and the practitioner does try to identify and correct these, but some could still be present. Please do not hesitate to contact practitioner for clarification. All questions answered to patients satisfaction. Patient verbalized understanding of diagnosis and treatments explained. To call sooner prior to next visit it any questions/concerns arise. 06/26/2024 Agitation (ICD-10 - R45.1) # Hypokalemia. On Lasix and HCTZ (neither are new). ? Releated to Lexparo (per UptoDate- potenital side effect). CHeck K level. Continue K Cl 10 meq po daily for now. #Hypertension : HCTZ, Amlodipine and Losartan continued # TBI/forgetfullness. Patient is significantly frustrated by this issue. Lexapro did not help, and Adderall increases agitation and behavior. Patient is followed by Ondina Syed over at the neurology office. Patient expressed a long concern for his increased forgetfulness and agitation. Unfortunately was not much left to offer. #hypogonadism. Trialed tesosterone, pt reports it helps him feel more like a man but states his mood wasn't all that different Case discussed with collaborating physician Ellie Toussaint who reviewed the assessment and plan. Chart, medications, labs, vital signs reviewed. Dictation was accomplished with the use of Dragon voice recognition software, prone to medical misidentifications and grammatical errors. This is unintentional and the practitioner does try to identify and correct these, but some could still be present. Please do not hesitate to contact practitioner for clarification. All questions answered to patients satisfaction. Patient verbalized understanding of diagnosis and treatments explained. To call sooner prior to next visit it any questions/concerns arise. 04/06/2024 Essential (primary) hypertension (ICD-10 - I10) #Hypertension Taken off of all meds except HCTZ due to BP being in 70's/80's/BP wel controlled todya # TBI/forgetfullness. Patient is significantly frustrated by this issue. Lexapro did not help, and Adderall increases agitation and behavior. Patient is followed by Ondina austin at the neurology office. Patient expressed a long concern for his increased forgetfulness and agitation. Unfortunately was not much left to offer. #hypogonadism. Trialed tesosterone, pt reports it helps him feel more like a man but states his mood wasn't all that different Case discussed with collaborating physician Ellie Toussaint who reviewed the assessment and plan. Chart, medications, labs, vital signs reviewed. Dictation was accomplished with the use of [employer] 3[employer] voice recognition software, prone to medical misidentifications and grammatical errors. This is unintentional and the practitioner does try to identify and correct these, but some could still be present. Please do not hesitate to contact practitioner for clarification. All questions answered to patients satisfaction. Patient verbalized understanding of diagnosis and treatments explained. To call sooner prior to next visit it any questions/concerns arise. 02/07/2024 Agitation (ICD-10 - R45.1) #Hypertension: Compliant with amlodipine and losartan/HCTZ. BP well controlled. Some adjustments were made to blood pressure medication secondary to hypotension. Dr. Child saw the patient. Blood pressure is overall stable in office today. # TBI/forgetfullness. Patient is significantly frustrated by this issue. Lexapro did not help, and Adderall increases agitation and behavior. Patient is followed by Ondina Syed over at the neurology office. Patient expressed a long concern for his increased forgetfulness and agitation. Unfortunately was not much left to offer. #hypogonadism. Trialed tesosterone, pt reports it helps him feel more like a man but states his mood wasn't all that different # URI sx. Neg for COVID/Flu/RSV. Will treat with Azithromcyin # Case discussed with collaborating physician Ellie Toussaint who reviewed the assessment and plan. Chart, medications, labs, vital signs reviewed. Dictation was accomplished with the use of [employer] 3[employer] voice recognition software, prone to medical misidentifications and grammatical errors. This is unintentional and the practitioner does try to identify and correct these, but some could still be present. Please do not hesitate to contact practitioner for clarification. All questions answered to patients satisfaction. Patient verbalized understanding of diagnosis and treatments explained. To call sooner prior to next visit it any questions/concerns arise. 02/07/2024 Essential (primary) hypertension (ICD-10 - I10) #Hypertension: Compliant with amlodipine and losartan/HCTZ. BP well controlled. Some adjustments were made to blood pressure medication secondary to hypotension. Dr. Child saw the patient. Blood pressure is overall stable in office today. # TBI/forgetfullness. Patient is significantly frustrated by this issue. Lexapro did not help, and Adderall increases agitation and behavior. Patient is followed by Ondina Syed over at the neurology office. Patient expressed a long concern for his increased forgetfulness and agitation. Unfortunately was not much left to offer. #hypogonadism. Trialed tesosterone, pt reports it helps him feel more like a man but states his mood wasn't all that different # URI sx. Neg for COVID/Flu/RSV. Will treat with Azithromcyin # Case discussed with collaborating physician Ellie Toussaint who reviewed the assessment and plan. Chart, medications, labs, vital signs reviewed. Dictation was accomplished with the use of [employer] 3[employer] voice recognition software, prone to medical misidentifications and grammatical errors. This is unintentional and the practitioner does try to identify and correct these, but some could still be present. Please do not hesitate to contact practitioner for clarification. All questions answered to patients satisfaction. Patient verbalized understanding of diagnosis and treatments explained. To call sooner prior to next visit it any questions/concerns arise. 06/26/2024 Essential (primary) hypertension (ICD-10 - I10) # Hypokalemia. On Lasix and HCTZ (neither are new). ? Releated to Lexparo (per UptoDate- potenital side effect). CHeck K level. Continue K Cl 10 meq po daily for now. #Hypertension : HCTZ, Amlodipine and Losartan continued # TBI/forgetfullness. Patient is significantly frustrated by this issue. Lexapro did not help, and Adderall increases agitation and behavior. Patient is followed by Ondina austin at the neurology office. Patient expressed a long concern for his increased forgetfulness and agitation. Unfortunately was not much left to offer. #hypogonadism. Trialed tesosterone, pt reports it helps him feel more like a man but states his mood wasn't all that different Case discussed with collaborating physician Ellie Toussaint who reviewed the assessment and plan. Chart, medications, labs, vital signs reviewed. Dictation was accomplished with the use of [employer] voice recognition software, prone to medical misidentifications and grammatical errors. This is unintentional and the practitioner does try to identify and correct these, but some could still be present. Please do not hesitate to contact practitioner for clarification. All questions answered to patients satisfaction. Patient verbalized understanding of diagnosis and treatments explained. To call sooner prior to next visit it any questions/concerns arise. 09/26/2024 Hypogonadism in male (ICD-10 - E29.1) #Hypertension: Compliant with amlodipine and losartan. BP well controlled. #Dry skin, Patient explains that he has had episodes of xerosis on the right hand that is now spreading to his left hand. Will add triamcinolone. Refer to dermatology # Testosterone- was previously on Xyosted, but cannot afford. Recheck CBC and testoserone. # TBI. Ongoing issue, reports not getting better. Consider Aricept? Also consider treating depression. Recommend group therapy/support groups. # Screening. Due for colonoscopy thru [facility] # Vaccines. Does not want flu shot Physical Men Patient seen and examined. Comprehensive discussion was done on the following. 1. Nutrition: It is important to follow a healthy diet based on lots of vegetables and legumes and good fat. Avoid processed food and processed carbohydrates. Learn to prepare your own meals. Learn to read labels and avoid high fructose corn syrup, processed chemicals added to increase shelf life and preprepared meals. Avoid fast foods. Learn to eat slowly and plan meals for a week. Try to count calories and be mindful off daily calorie intake. Get into the habit of keeping an eye on your weight by using an appropriate scale. Learn to log exercise and discussed fitness Apps like AppCard which can help keep log off calories taken versus calories burned. Local food should be preferred. Discussed Dirty Dozen Versus Clean Fifteen. Discussed healthy supplements like fish oil, Tumeric, Curcumin, Melatonin, Resveratrol, Probiotics, Vitamin-D, Alpha-Lipoic acid, Vitamin-D and coconut oil. 2. It is important to exercise regularly. Is a good habit to walk at least 30-45 minutes a day. Gentle weightlifting with standard precautions to protect the back. Finding activity like cycling or hiking and get into the habit of engaging in it. Stretching before and after the exercises important. It is also important to contact me if there are any problems like shortness of breath, chest pain, back pain and joint or muscle pain associated with the exercise. 3. Discussed age appropriate screening guidelines. Colonoscopy needs to start at age 50 with stool for occult blood as appropriate. There is a new test that can test for genetic abnormalities in the stool sample. This would not replace a colonoscopy but could be used as a screening tool for patients who do not want a colonoscopy. We discussed the importance of early detection of colon cancer. 4. Discussed current PSA screening. PSA screening can be done in most patients between age 50 and 65. However early detection of prostate cancer needs to carefully be balanced with complications with treatment. These include incontinence, impotence etc. Each patient should decide if they would like to have this test. 5. Discussed safe driving and no use of smart phone while driving 6. Age-appropriate immunizations were discussed. A tetanus booster is needed every 10 years. Flu vaccine is recommended every year just before the start of the flu season. Shingles vaccine is recommended after age 50 but not all insurances cover it. Pneumonia vaccine is given after age 65 unless there are certain comorbidities for which it is started earlier. 7. Diagnostic labs were discussed. These could include CBC CMP and lipids with fasting blood glucose and insulin levels. Vitamin D and hemoglobin A1c testing might be appropriate. Case discussed with collaborating physician Ellie Toussaint who reviewed the assessment and plan. Chart, medications, labs, vital signs reviewed. Dictation was accomplished with the use of [employer] voice recognition software, prone to medical misidentifications and grammatical errors. This is unintentional and the practitioner does try to identify and correct these, but some could still be present. Please do not hesitate to contact practitioner for clarification. All questions answered to patients satisfaction. Patient verbalized understanding of diagnosis and treatments explained. To call sooner prior to next visit it any questions/concerns arise. 04/06/2024 Current episode of major depressive disorder without prior episode, unspecified depression episode severity (ICD-10 - F32.9) #Hypertension Taken off of all meds except HCTZ due to BP being in 70's/80's/BP wel controlled todya # TBI/forgetfullness. Patient is significantly frustrated by this issue. Lexapro did not help, and Adderall increases agitation and behavior. Patient is followed by Ondina austin at the neurology office. Patient expressed a long concern for his increased forgetfulness and agitation. Unfortunately was not much left to offer. #hypogonadism. Trialed tesosterone, pt reports it helps him feel more like a man but states his mood wasn't all that different Case discussed with collaborating physician Ellie Toussaint who reviewed the assessment and plan. Chart, medications, labs, vital signs reviewed. Dictation was accomplished with the use of [employer] voice recognition software, prone to medical misidentifications and grammatical errors. This is unintentional and the practitioner does try to identify and correct these, but some could still be present. Please do not hesitate to contact practitioner for clarification. All questions answered to patients satisfaction. Patient verbalized understanding of diagnosis and treatments explained. To call sooner prior to next visit it any questions/concerns arise. 01/23/2025 Current episode of major depressive disorder without prior episode, unspecified depression episode severity (ICD-10 - F32.9) #Hypertension: Compliant with amlodipine and losartan. BP well controlled. # Testosterone- was previously on Xyosted, but cannot afford. Recheck CBC and testoserone. # TBI. Ongoing issue, reports not getting better. Consider Aricept? Also consider treating depression. Recommend group therapy/support groups. Consider refer to [facility] Case discussed with collaborating physician Dena Toussaint who reviewed the assessment and plan. Chart, medications, labs, vital signs reviewed. Dictation was accomplished with the use of [employer] 3D voice recognition software, prone to medical misidentifications and grammatical errors. This is unintentional and the practitioner does try to identify and correct these, but some could still be present. Please do not hesitate to contact practitioner for clarification. All questions answered to patients satisfaction. Patient verbalized understanding of diagnosis and treatments explained. To call sooner prior to next visit it any questions/concerns arise. 09/26/2024 Traumatic brain injury, without loss of consciousness, initial encounter (ICD-10 - S06.9X0A) #Hypertension: Compliant with amlodipine and losartan. BP well controlled. #Dry skin, Patient explains that he has had episodes of xerosis on the right hand that is now spreading to his left hand. Will add triamcinolone. Refer to dermatology # Testosterone- was previously on Xyosted, but cannot afford. Recheck CBC and testoserone. # TBI. Ongoing issue, reports not getting better. Consider Aricept? Also consider treating depression. Recommend group therapy/support groups. # Screening. Due for colonoscopy thru [facility] # Vaccines. Does not want flu shot Physical Men Patient seen and examined. Comprehensive discussion was done on the following. 1. Nutrition: It is important to follow a healthy diet based on lots of vegetables and legumes and good fat. Avoid processed food and processed carbohydrates. Learn to prepare your own meals. Learn to read labels and avoid high fructose corn syrup, processed chemicals added to increase shelf life and preprepared meals. Avoid fast foods. Learn to eat slowly and plan meals for a week. Try to count calories and be mindful off daily calorie intake. Get into the habit of keeping an eye on your weight by using an appropriate scale. Learn to log exercise and discussed fitness Apps like AppCard which can help keep log off calories taken versus calories burned. Local food should be preferred. Discussed Dirty Dozen Versus Clean Fifteen. Discussed healthy supplements like fish oil, Tumeric, Curcumin, Melatonin, Resveratrol, Probiotics, Vitamin-D, Alpha-Lipoic acid, Vitamin-D and coconut oil. 2. It is important to exercise regularly. Is a good habit to walk at least 30-45 minutes a day. Gentle weightlifting with standard precautions to protect the back. Finding activity like cycling or hiking and get into the habit of engaging in it. Stretching before and after the exercises important. It is also important to contact me if there are any problems like shortness of breath, chest pain, back pain and joint or muscle pain associated with the exercise. 3. Discussed age appropriate screening guidelines. Colonoscopy needs to start at age 50 with stool for occult blood as appropriate. There is a new test that can test for genetic abnormalities in the stool sample. This would not replace a colonoscopy but could be used as a screening tool for patients who do not want a colonoscopy. We discussed the importance of early detection of colon cancer. 4. Discussed current PSA screening. PSA screening can be done in most patients between age 50 and 65. However early detection of prostate cancer needs to carefully be balanced with complications with treatment. These include incontinence, impotence etc. Each patient should decide if they would like to have this test. 5. Discussed safe driving and no use of smart phone while driving 6. Age-appropriate immunizations were discussed. A tetanus booster is needed every 10 years. Flu vaccine is recommended every year just before the start of the flu season. Shingles vaccine is recommended after age 50 but not all insurances cover it. Pneumonia vaccine is given after age 65 unless there are certain comorbidities for which it is started earlier. 7. Diagnostic labs were discussed. These could include CBC CMP and lipids with fasting blood glucose and insulin levels. Vitamin D and hemoglobin A1c testing might be appropriate. Case discussed with collaborating physician Ellie Toussaint who reviewed the assessment and plan. Chart, medications, labs, vital signs reviewed. Dictation was accomplished with the use of [employer] 3[employer] voice recognition software, prone to medical misidentifications and grammatical errors. This is unintentional and the practitioner does try to identify and correct these, but some could still be present. Please do not hesitate to contact practitioner for clarification. All questions answered to patients satisfaction. Patient verbalized understanding of diagnosis and treatments explained. To call sooner prior to next visit it any questions/concerns arise. 01/23/2025 B12 deficiency (ICD-10 - E53.8) #Hypertension: Compliant with amlodipine and losartan. BP well controlled. # Testosterone- was previously on Xyosted, but cannot afford. Recheck CBC and testoserone. # TBI. Ongoing issue, reports not getting better. Consider Aricept? Also consider treating depression. Recommend group therapy/support groups. Consider refer to [facility] [facility] Case discussed with collaborating physician Dena Toussaint who reviewed the assessment and plan. Chart, medications, labs, vital signs reviewed. Dictation was accomplished with the use of [employer] 3D voice recognition software, prone to medical misidentifications and grammatical errors. This is unintentional and the practitioner does try to identify and correct these, but some could still be present. Please do not hesitate to contact practitioner for clarification. All questions answered to patients satisfaction. Patient verbalized understanding of diagnosis and treatments explained. To call sooner prior to next visit it any questions/concerns arise. 06/26/2024 Current episode of major depressive disorder without prior episode, unspecified depression episode severity (ICD-10 - F32.9) # Hypokalemia. On Lasix and HCTZ (neither are new). ? Releated to Lexparo (per [employer]- potenital side effect). CHeck K level. Continue K Cl 10 meq po daily for now. #Hypertension : HCTZ, Amlodipine and Losartan continued # TBI/forgetfullness. Patient is significantly frustrated by this issue. Lexapro did not help, and Adderall increases agitation and behavior. Patient is followed by Ondina austin at the neurology office. Patient expressed a long concern for his increased forgetfulness and agitation. Unfortunately was not much left to offer. #hypogonadism. Trialed tesosterone, pt reports it helps him feel more like a man but states his mood wasn't all that different Case discussed with collaborating physician Ellie Toussaint who reviewed the assessment and plan. Chart, medications, labs, vital signs reviewed. Dictation was accomplished with the use of [employer] 3D voice recognition software, prone to medical misidentifications and grammatical errors. This is unintentional and the practitioner does try to identify and correct these, but some could still be present. Please do not hesitate to contact practitioner for clarification. All questions answered to patients satisfaction. Patient verbalized understanding of diagnosis and treatments explained. To call sooner prior to next visit it any questions/concerns arise. 02/07/2024 Current episode of major depressive disorder without prior episode, unspecified depression episode severity (ICD-10 - F32.9) #Hypertension: Compliant with amlodipine and losartan/HCTZ. BP well controlled. Some adjustments were made to blood pressure medication secondary to hypotension. Dr. Child saw the patient. Blood pressure is overall stable in office today. # TBI/forgetfullness. Patient is significantly frustrated by this issue. Lexapro did not help, and Adderall increases agitation and behavior. Patient is followed by Ondina Syed over at the neurology office. Patient expressed a long concern for his increased forgetfulness and agitation. Unfortunately was not much left to offer. #hypogonadism. Trialed tesosterone, pt reports it helps him feel more like a man but states his mood wasn't all that different # URI sx. Neg for COVID/Flu/RSV. Will treat with Azithromcyin # Case discussed with collaborating physician Ellie Toussaint who reviewed the assessment and plan. Chart, medications, labs, vital signs reviewed. Dictation was accomplished with the use of [employer] 3[employer] voice recognition software, prone to medical misidentifications and grammatical errors. This is unintentional and the practitioner does try to identify and correct these, but some could still be present. Please do not hesitate to contact practitioner for clarification. All questions answered to patients satisfaction. Patient verbalized understanding of diagnosis and treatments explained. To call sooner prior to next visit it any questions/concerns arise. 04/06/2024 B12 deficiency (ICD-10 - E53.8) #Hypertension Taken off of all meds except HCTZ due to BP being in 70's/80's/BP wel controlled todya # TBI/forgetfullness. Patient is significantly frustrated by this issue. Lexapro did not help, and Adderall increases agitation and behavior. Patient is followed by Ondina Syed over at the neurology office. Patient expressed a long concern for his increased forgetfulness and agitation. Unfortunately was not much left to offer. #hypogonadism. Trialed tesosterone, pt reports it helps him feel more like a man but states his mood wasn't all that different Case discussed with collaborating physician Ellie Toussaint who reviewed the assessment and plan. Chart, medications, labs, vital signs reviewed. Dictation was accomplished with the use of [employer] 3[employer] voice recognition software, prone to medical misidentifications and grammatical errors. This is unintentional and the practitioner does try to identify and correct these, but some could still be present. Please do not hesitate to contact practitioner for clarification. All questions answered to patients satisfaction. Patient verbalized understanding of diagnosis and treatments explained. To call sooner prior to next visit it any questions/concerns arise. 02/07/2024 B12 deficiency (ICD-10 - E53.8) #Hypertension: Compliant with amlodipine and losartan/HCTZ. BP well controlled. Some adjustments were made to blood pressure medication secondary to hypotension. Dr. Child saw the patient. Blood pressure is overall stable in office today. # TBI/forgetfullness. Patient is significantly frustrated by this issue. Lexapro did not help, and Adderall increases agitation and behavior. Patient is followed by Ondina austin at the neurology office. Patient expressed a long concern for his increased forgetfulness and agitation. Unfortunately was not much left to offer. #hypogonadism. Trialed tesosterone, pt reports it helps him feel more like a man but states his mood wasn't all that different # URI sx. Neg for COVID/Flu/RSV. Will treat with Azithromcyin # Case discussed with collaborating physician Ellie Toussaint who reviewed the assessment and plan. Chart, medications, labs, vital signs reviewed. Dictation was accomplished with the use of [employer] 3D voice recognition software, prone to medical misidentifications and grammatical errors. This is unintentional and the practitioner does try to identify and correct these, but some could still be present. Please do not hesitate to contact practitioner for clarification. All questions answered to patients satisfaction. Patient verbalized understanding of diagnosis and treatments explained. To call sooner prior to next visit it any questions/concerns arise. 01/23/2025 Encounter for examination of blood pressure without abnormal findings (ICD-10 - Z01.30) #Hypertension: Compliant with amlodipine and losartan. BP well controlled. # Testosterone- was previously on Xyosted, but cannot afford. Recheck CBC and testoserone. # TBI. Ongoing issue, reports not getting better. Consider Aricept? Also consider treating depression. Recommend group therapy/support groups. Consider refer to [facility] Case discussed with collaborating physician Dena Toussaint who reviewed the assessment and plan. Chart, medications, labs, vital signs reviewed. Dictation was accomplished with the use of [employer] 3D voice recognition software, prone to medical misidentifications and grammatical errors. This is unintentional and the practitioner does try to identify and correct these, but some could still be present. Please do not hesitate to contact practitioner for clarification. All questions answered to patients satisfaction. Patient verbalized understanding of diagnosis and treatments explained. To call sooner prior to next visit it any questions/concerns arise. 09/26/2024 Current episode of major depressive disorder without prior episode, unspecified depression episode severity (ICD-10 - F32.9) #Hypertension: Compliant with amlodipine and losartan. BP well controlled. #Dry skin, Patient explains that he has had episodes of xerosis on the right hand that is now spreading to his left hand. Will add triamcinolone. Refer to dermatology # Testosterone- was previously on Xyosted, but cannot afford. Recheck CBC and testoserone. # TBI. Ongoing issue, reports not getting better. Consider Aricept? Also consider treating depression. Recommend group therapy/support groups. # Screening. Due for colonoscopy thru [facility] # Vaccines. Does not want flu shot Physical Men Patient seen and examined. Comprehensive discussion was done on the following. 1. Nutrition: It is important to follow a healthy diet based on lots of vegetables and legumes and good fat. Avoid processed food and processed carbohydrates. Learn to prepare your own meals. Learn to read labels and avoid high fructose corn syrup, processed chemicals added to increase shelf life and preprepared meals. Avoid fast foods. Learn to eat slowly and plan meals for a week. Try to count calories and be mindful off daily calorie intake. Get into the habit of keeping an eye on your weight by using an appropriate scale. Learn to log exercise and discussed fitness Apps like AppCard which can help keep log off calories taken versus calories burned. Local food should be preferred. Discussed Dirty Dozen Versus Clean Fifteen. Discussed healthy supplements like fish oil, Tumeric, Curcumin, Melatonin, Resveratrol, Probiotics, Vitamin-D, Alpha-Lipoic acid, Vitamin-D and coconut oil. 2. It is important to exercise regularly. Is a good habit to walk at least 30-45 minutes a day. Gentle weightlifting with standard precautions to protect the back. Finding activity like cycling or hiking and get into the habit of engaging in it. Stretching before and after the exercises important. It is also important to contact me if there are any problems like shortness of breath, chest pain, back pain and joint or muscle pain associated with the exercise. 3. Discussed age appropriate screening guidelines. Colonoscopy needs to start at age 50 with stool for occult blood as appropriate. There is a new test that can test for genetic abnormalities in the stool sample. This would not replace a colonoscopy but could be used as a screening tool for patients who do not want a colonoscopy. We discussed the importance of early detection of colon cancer. 4. Discussed current PSA screening. PSA screening can be done in most patients between age 50 and 65. However early detection of prostate cancer needs to carefully be balanced with complications with treatment. These include incontinence, impotence etc. Each patient should decide if they would like to have this test. 5. Discussed safe driving and no use of smart phone while driving 6. Age-appropriate immunizations were discussed. A tetanus booster is needed every 10 years. Flu vaccine is recommended every year just before the start of the flu season. Shingles vaccine is recommended after age 50 but not all insurances cover it. Pneumonia vaccine is given after age 65 unless there are certain comorbidities for which it is started earlier. 7. Diagnostic labs were discussed. These could include CBC CMP and lipids with fasting blood glucose and insulin levels. Vitamin D and hemoglobin A1c testing might be appropriate. Case discussed with collaborating physician Ellie Toussaint who reviewed the assessment and plan. Chart, medications, labs, vital signs reviewed. Dictation was accomplished with the use of [employer] 3D voice recognition software, prone to medical misidentifications and grammatical errors. This is unintentional and the practitioner does try to identify and correct these, but some could still be present. Please do not hesitate to contact practitioner for clarification. All questions answered to patients satisfaction. Patient verbalized understanding of diagnosis and treatments explained. To call sooner prior to next visit it any questions/concerns arise. 09/26/2024 B12 deficiency (ICD-10 - E53.8) #Hypertension: Compliant with amlodipine and losartan. BP well controlled. #Dry skin, Patient explains that he has had episodes of xerosis on the right hand that is now spreading to his left hand. Will add triamcinolone. Refer to dermatology # Testosterone- was previously on Xyosted, but cannot afford. Recheck CBC and testoserone. # TBI. Ongoing issue, reports not getting better. Consider Aricept? Also consider treating depression. Recommend group therapy/support groups. # Screening. Due for colonoscopy thru [facility] # Vaccines. Does not want flu shot Physical Men Patient seen and examined. Comprehensive discussion was done on the following. 1. Nutrition: It is important to follow a healthy diet based on lots of vegetables and legumes and good fat. Avoid processed food and processed carbohydrates. Learn to prepare your own meals. Learn to read labels and avoid high fructose corn syrup, processed chemicals added to increase shelf life and preprepared meals. Avoid fast foods. Learn to eat slowly and plan meals for a week. Try to count calories and be mindful off daily calorie intake. Get into the habit of keeping an eye on your weight by using an appropriate scale. Learn to log exercise and discussed fitness Apps like AppCard which can help keep log off calories taken versus calories burned. Local food should be preferred. Discussed Dirty Dozen Versus Clean Fifteen. Discussed healthy supplements like fish oil, Tumeric, Curcumin, Melatonin, Resveratrol, Probiotics, Vitamin-D, Alpha-Lipoic acid, Vitamin-D and coconut oil. 2. It is important to exercise regularly. Is a good habit to walk at least 30-45 minutes a day. Gentle weightlifting with standard precautions to protect the back. Finding activity like cycling or hiking and get into the habit of engaging in it. Stretching before and after the exercises important. It is also important to contact me if there are any problems like shortness of breath, chest pain, back pain and joint or muscle pain associated with the exercise. 3. Discussed age appropriate screening guidelines. Colonoscopy needs to start at age 50 with stool for occult blood as appropriate. There is a new test that can test for genetic abnormalities in the stool sample. This would not replace a colonoscopy but could be used as a screening tool for patients who do not want a colonoscopy. We discussed the importance of early detection of colon cancer. 4. Discussed current PSA screening. PSA screening can be done in most patients between age 50 and 65. However early detection of prostate cancer needs to carefully be balanced with complications with treatment. These include incontinence, impotence etc. Each patient should decide if they would like to have this test. 5. Discussed safe driving and no use of smart phone while driving 6. Age-appropriate immunizations were discussed. A tetanus booster is needed every 10 years. Flu vaccine is recommended every year just before the start of the flu season. Shingles vaccine is recommended after age 50 but not all insurances cover it. Pneumonia vaccine is given after age 65 unless there are certain comorbidities for which it is started earlier. 7. Diagnostic labs were discussed. These could include CBC CMP and lipids with fasting blood glucose and insulin levels. Vitamin D and hemoglobin A1c testing might be appropriate. Case discussed with collaborating physician Ellie Toussiant who reviewed the assessment and plan. Chart, medications, labs, vital signs reviewed. Dictation was accomplished with the use of [employer] 3D voice recognition software, prone to medical misidentifications and grammatical errors. This is unintentional and the practitioner does try to identify and correct these, but some could still be present. Please do not hesitate to contact practitioner for clarification. All questions answered to patients satisfaction. Patient verbalized understanding of diagnosis and treatments explained. To call sooner prior to next visit it any questions/concerns arise. 02/07/2024 Acute cough (ICD-10 - R05.1) #Hypertension: Compliant with amlodipine and losartan/HCTZ. BP well controlled. Some adjustments were made to blood pressure medication secondary to hypotension. Dr. Child saw the patient. Blood pressure is overall stable in office today. # TBI/forgetfullness. Patient is significantly frustrated by this issue. Lexapro did not help, and Adderall increases agitation and behavior. Patient is followed by Ondina austin at the neurology office. Patient expressed a long concern for his increased forgetfulness and agitation. Unfortunately was not much left to offer. #hypogonadism. Trialed tesosterone, pt reports it helps him feel more like a man but states his mood wasn't all that different # URI sx. Neg for COVID/Flu/RSV. Will treat with Azithromcyin # Case discussed with collaborating physician Ellie Toussaint who reviewed the assessment and plan. Chart, medications, labs, vital signs reviewed. Dictation was accomplished with the use of [employer] 3D voice recognition software, prone to medical misidentifications and grammatical errors. This is unintentional and the practitioner does try to identify and correct these, but some could still be present. Please do not hesitate to contact practitioner for clarification. All questions answered to patients satisfaction. Patient verbalized understanding of diagnosis and treatments explained. To call sooner prior to next visit it any questions/concerns arise. Plan Of Treatment Pending Test Test Name Order Date Echocardiogram 03/31/2022 X ray : Chest with 2 views 07/20/2023 X ray : Chest with 2 views 12/08/2023 Ultrasound : Kidneys 04/24/2021 SEX HORMONE BINDING GLOBULIN (SHBG) 09/16 TESTOSTERONE, FREE AND TOTAL (MALES >15 YRS OLD) 10/21/2023 MAGNESIUM 06/26/2024 LIPID PANEL, STANDARD 09/26/2024 LIPID PANEL, STANDARD 04/06/2024 LIPID PANEL, STANDARD 09/17/2021 LIPID PANEL, STANDARD 01/23/2025 COMPREHENSIVE METABOLIC PANEL 01/23/2025 COMPREHENSIVE METABOLIC PANEL 09/17/2021 COMPREHENSIVE METABOLIC PANEL 04/06/2024 COMPREHENSIVE METABOLIC PANEL 08/25/2023 COMPREHENSIVE METABOLIC PANEL 06/26/2024 COMPREHENSIVE METABOLIC PANEL 09/26/2024 CBC (INCLUDES DIFF/PLT) 04/06/2024 CBC (INCLUDES DIFF/PLT) 09/17/2021 CBC (INCLUDES DIFF/PLT) 10/29/2022 CBC (INCLUDES DIFF/PLT) 09/26/2024 CBC (INCLUDES DIFF/PLT) 01/23/2025 URINALYSIS, COMPLETE 01/23/2025 URINALYSIS, COMPLETE 04/06/2024 URINALYSIS, COMPLETE 09/26/2024 URINALYSIS, COMPLETE W/REFLEX TO CULTURE 09/17/2021 HEMOGLOBIN A1c 09/17/2021 HEMOGLOBIN A1c 09/26/2024 HEMOGLOBIN A1c 04/06/2024 HEMOGLOBIN A1c 01/23/2025 VITAMIN B12 01/23/2025 VITAMIN B12 04/06/2024 VITAMIN B12 09/26/2024 PSA (FREE AND TOTAL) 04/06/2024 TSH 04/06/2024 TSH 09/26/2024 TSH 01/23/2025 VITAMIN D,25-OH,TOTAL,IA 04/06/2024 TESTOSTERONE, TOTAL, MS 09/26/2024 TESTOSTERONE, TOTAL, MS 01/23/2025 TESTOSTERONE, FREE (DIALYSIS) AND TOTAL, MS 10/29/2022 Sex Hormone Binding Globulin 01/23/2025 Next Appt Details Provider Name:RIAN SHAVER, 04/24/2025 09:15:00 AM, [address], [place], [id number], Insurance Providers Payer Name Payer Address Payer Phone Subscriber Number Group Number Insured Name Patient Relationship to Insured Coverage Start Date Coverage End Date Select [facility] [id number] [place] [address] [id number] [employer] FIELD Self - patient is the insured Medications Administered Medication Instructions Date of Administration Dosage Notes vitamin b12 05/03/2023 1 mL lot#[id number] Medical (General) History Medical History History ICD Code Essential (primary) hypertension I10 Hyperlipidemia, mild E78.5 Renal cyst N28.1 GERD without esophagitis K21.9 Asthma J45.909 Seasonal allergies J30.2 Migraine, unspecified, not intractable, without status migrainosus G43.909 Prediabetes R73.03 Hypogonadism male E29.1 Personal history of traumatic brain inju ry Z87.820 Renal cell carcinoma, unspecified latera lity C64.9 Cluster headache syndrome, unspecified 3 39.00 Hospitalization History Reason Date(Month/Year) Renal Cryoablation 2022 TBI 05/2022
== END 2025-01-24 14:24 | disposition home or self-care (01) ==
LOC: HO.HSMS 12:56
PROVIDERS: PCP Internal Medicine; Visit Provider Nurse Practitioner Family
DX: S09.90XA Unspecified injury of head, initial encounter (principal); F07.81 Postconcussional syndrome; F32.A Depression, unspecified; F41.9 Anxiety disorder, unspecified; F43.20 Adjustment disorder, unspecified; R41.89 Other symptoms and signs involving cognitive functions and awareness; R42 Dizziness and giddiness
CPT/HCPCS: 99214; G2211

== ENCOUNTER → 2025-01-24 12:56 | Outpatient (BNVA) | payer OTHER, SELFPAY | PROVIDERS: PCP Internal Medicine; Visit Provider Nurse Practitioner Family | DX: S09.90XD Unspecified injury of head, subsequent encounter (principal); V89.2XXD Person injured in unspecified motor-vehicle accident, traffic, subsequent encounter; F07.81 Postconcussional syndrome; F32.A Depression, unspecified; F41.9 Anxiety disorder, unspecified; F43.20 Adjustment disorder, unspecified; R42 Dizziness and giddiness | CPT/HCPCS: 99212 ==

== ENCOUNTER 2025-06-15 11:40 | Outpatient (AMB) | payer OTHER, SELFPAY ==
--- OUTSIDE RECORDS SUMMARY | 2023-12-20 05:00 | XMS_ITS ---
Author Organization [facility] [address] Address [address] [place] [address] Care Team Providers Care President & Ceo [employer] Name Role Phone RIAN SHAVER Unavailable [phone] Allergies No Known Allergies REASON FOR VISIT [...] Encounters Encounter Location Date Provider Diagnosis [facility] [address] [place] [address] 12/20/2023 RIAN SHAVER Plan Of Treatment Next Appt Details Provider Name:RIAN SHAVER, 06/26/2025 09:30:00 AM, [address] [facility], [place], [address], Progress Notes * AMNA FIELDDOB:[birth year] (64 yo M)Acc No.[id number]:12/20/2023 Progress Notes Patient: AMNA SOSA Provider: Demar SHAVER PA-C :1960 A ge:63 Y S ex:Male Date:12/20/2023 Address:[address] [place], [place] [id number] Subjective: * Chief Complaints: * 1 . [...] Information: * Visit Code: * Procedure Codes: 35174 NO SHOW OFFICE VISIT. Care Plan Details* * Electronic signature of DUYNE SHAVER PA-C on 06/15/2025 at 01:17 PM EDT Sign off status: Pending * Provider: Demar SHAVER PA-C Date: 0 12/20/2023 Generated for Marichuy argueta/Porfirio/Lenny on: 1 01:17 PM EDT
--- OUTSIDE RECORDS SUMMARY | 2024-08-14 10:00 | XMS_ITS ---
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 Annual. * Medical History: Objective: * Vitals: Assessment: Plan: * Treatment: * Images: Billing Information: * Visit Code: * Procedure Codes: Care Plan Details* * Electronic signature of DUYEN SHAVER PA-C on 06/15/2025 at 01:18 PM EDT Sign off status: Pending * Provider: Demar SHAVER PA-C Date: Generated for Marichuy argueta/Porfirio/eTransmitting on: 1 01:18 PM EDT
--- OUTSIDE RECORDS SUMMARY | 2025-06-06 07:25 | XMS_ITS | Continuity of Care Document ---
Author Organization [facility] Address [address] [address] Phone Care Team Providers Care Engineering And Operations Director Name Role Phone Ada Rossi MD Unavailable [...] est mod 30-39 min Offic/outpt E&m Estab Mod-ar 2 20 Offic/outpt E&m Estab Mod-ar 2 19 Offic/outpt E&m Estab Mod-ar 2 19 Offic/outpt E&m Estab [facility]-ar 2 19 Triamcinolone Acetonide Per Per 10Mg Oct Arthrocentesis/aspir/inj; Adrianna 19 Offic/outpt E&m Estab Mod-ar 2 19 Offic/outpt E&m Est[facility] 9 Offic/outpt E&m Estab Mod-ar 2 19 Offic/outpt E&m Estab 5 Min Offic/outpt E&m Estab 5 Min Offic/outpt E&m Estab [facility]-ar 2 19 Offic/outpt E&m Estab [facility]-ar 2 18 Offic/outpt E&m Estab [facility] 8 Offic/outpt E&m Estab [facility] 8 Offic/outpt E&m Estab Mod-ar 2 18 Offic/outpt E&m Estab [facility]-ar 2 17 Offic/outpt E&m Estab [facility]-ar 2 17 Echo Retroperiton B-scan; Comp 16 Offic/outpt E&m Estab [facility]-ar 2 16 Offic/outpt E&m Estab [facility]-ar 2 16 Rad Exam Chest 2 Views Front & 16 Rad Exam Chest 2 Views Front & 16 Offic/outpt E&m Estab [facility] 6 Noninvas Oximetry-o2 Sat; 1 De 16 Rad Exam Chest 2 Views Front & 16 Noninvas Oximetry-o2 Sat; 1 De 16 Nonpress Inhala Tx Acute Airwa 16 Duoneb: Albuteral/Ipratropium Venetie Up To 0.5mg IV Hydration 31 Min [...] Diagnoses Date Provider Providers Copied on Encounter [address], [facility], tel:[phone] [facility] No Information 5 Flo Caballero. [address], [id number], [place]. tel:[phone], [facility], [place] tel:[phone] [facility] No Information 5 Flo Caballero. [address], [id number], [place]. tel:[phone] Office o/p est mod 30-[address], [address], [place] tel:[phone] [facility] Diabetes/HTN (chief complaint) Arthritis due to other bacteria, right kneeArthriti s due to other bacteria, left kneeErectile dysfunction associated with type 2 diabetes mellitusErec tile dysfunction due to diseases classified elsewhereHyp erlipidemia, unspecifiedH ypertension associated with diabetesHype rtension secondary to endocrine disordersHyp ertrophic cardiomyopat hyGingival hypertrophyB justino mass index [BMI] 36.0-36.9, adult 5 Flo Caballero. [address], [id number], . tel:[phone] Referring Provider: Ada Hernandez, [address], [address]. tel:[phone], [facility], [place] tel:[phone] [facility] [place] blurry vision (chief complaint) Type 2 diabetes mellitus without complication Racheal-related nuclear cataract, bilateral 5 Jac Disla. [facility], [address] [place] [address], [id number], [place]. tel:[phone] Referring Provider: Tony Wright, [address], [address]. tel:[phone] Pre[facility] E&m Estab Pt; 40-[address], [facility], [place] tel:[phone] Primary Care [facility] preventive exam (chief complaint) Encounter for general adult medical examination without abnormal findingsAcut e renal failure, unspecified acute renal failure typeHx of prostatic malignancyHy perlipidemia associated with type 2 diabetes mellitusHype rlipidemia, unspecifiedH ypertension associated with diabetesHype rtension secondary to endocrine disordersHyp ertrophic cardiomyopat hyOSA on CPAPBody mass index [BMI] 36.0-36.9, adult 5 Flo Caballero. [address], [id number], [place]. tel:[phone] Referring Provider: Ada Hernandez, [address], [address]. tel:[phone] [facility], [address] [place] [address], [address], [place] tel:[phone] [facility] Type 2 diabetes mellitus without complication sRoutine lab draw 5 Flo Caballero. [facility], [address] [place] [address], [id number], [place]. tel:[phone] [facility], [address] [place] [address], [address], [place] tel:[phone] [facility] No Information 5 Flo Caballero. [facility], [address] [place] [address], [id number], [place]. tel:[phone], [address], [place] tel:[phone] [facility] Hyperlipidem ia associated with type 2 diabetes mellitus 5 Flo Caballero. [facility], [address] [place] [address], [id number], [place]. tel:[phone] [facility], [address] [place] [address], [address], [place] tel:[phone] Radiology [facility] No Information 5 Stacy Sierra. [facility], [address] [place] [address], [id number], [place]. tel:[phone] Referring Provider: Ada Hernandez, [address], [address]. tel:[phone] Office o/p est mod 30-[address], [address], [place] tel:[phone] [facility] arm pain (chief complaint) Chronic left shoulder painOther chronic painHyperlip idemia associated with type 2 diabetes mellitusHype rlipidemia, unspecifiedH ypertension associated with diabetesHype rtension secondary to endocrine disordersHx of prostatic malignancyHy pertrophic cardiomyopat hyOSA on CPAPBody mass index [BMI] 38.0-38.9, adult Aug- 5 Flo Caballero. [address], [id number], [place]. tel:[phone] Referring Provider: Ada Hernandez, [address], [address]. tel:[phone], [address], [place] tel:[phone] [facility] No Information 4 Flo Caballero. [address], [id number], [place]. tel:[phone] Office o/p est mod 30-[address], [address], [place] tel:[phone] [facility] diabetes - established (chief complaint)Pr ostate Cancer (chief complaint)hy pertension (chief complaint) Hyperlipidem ia associated with type 2 diabetes mellitusHype rlipidemia, unspecifiedE rectile dysfunction due to diseases classified elsewhereHyp ertension associated with diabetesHype rtension secondary to endocrine disordersOSA on CPAPTobacco consumptionH istory of prostate cancerBody mass index [BMI] 38.0-38.9, adult Apr- 4 Flo Caballero. [address], [id number], [place]. tel:[phone] Referring Provider: Ada Hernandez, [address], [address]. tel:[phone], [address], [place] tel:[phone] [facility] Type 2 diabetes mellitus without complication s 4 Flo Caballero. [facility], [address] [place] [address], [id number], [place]. tel:[phone] Office o/p est mod 30-39 min [facility], [address] [place] [address], [address], [place] tel:[phone] [facility] diabetes - established (chief complaint)hy pertension (chief complaint) Cancer of prostate with low recurrence risk (stage T1-2a and [place] < 7 and PSA < 10)Hyperlipi demia associated with type 2 diabetes mellitusHype rlipidemia, unspecifiedH ypertension associated with diabetesHype rtension secondary to endocrine disordersOSA on CPAPTobacco consumptionH x of prostatic malignancyGi ngival swellingBody mass index [BMI] 39.0-39.9, adult Oct- 4 Flo Caballero. [facility], [address] [place] [address], [id number], [place]. tel:[phone] Referring Provider: Ada Rossi MD R, [address], [address]. tel:[phone] [facility], [address] [place] [address], [address], [place] tel:[phone] [facility] Hypertension associated with diabetes 4 Flo Caballero. [facility], [address] [place] [address], [id number], [place]. tel:[phone] Office o/p est mod 30-[address], [address], [place] tel:[phone] [facility] diabetes - established (chief complaint) Erectile dysfunction associated with type 2 diabetes mellitusErec tile dysfunction due to diseases classified elsewhereOSA on CPAPNephrosi s in diabetes mellitusHype rtension associated with diabetesHype rtension secondary to endocrine disordersTob acco consumptionH x of prostatic malignancyBo dy mass index [BMI] 39.0-39.9, adult 3 Flo Caballero. [facility], [address] [place] [address], [id number], [place]. tel:[phone] Referring Provider: Ada Rossi MD R, [address], [address]. tel:[phone] [facility], [address] [place] [address], [address], [place] tel:[phone] [facility] Type 2 diabetes mellitus with other diabetic kidney complication Routine lab draw 3 Flo Cbaallero. [facility], [address] [place] [address], [id number], [place]. tel:[phone], [address], [place] tel:[phone] [facility] Diabetic Eye Exam (chief complaint) Type 2 diabetes mellitus without complication sPresbyopiaA ge-related nuclear cataract, bilateral Sep-2 3 Jac Disla. [facility], [address] [place] [address], [id number], [place]. tel:[phone] Referring Provider: Tony Wilhelm OD M, [address], [address]. tel:[phone] Office o/p est mod 30-[address], [address], [place] tel:[phone] [facility] Diabetes/HTN (chief complaint)ot her (chief complaint) Hyperlipidem ia associated with type 2 diabetes mellitusHype rlipidemia, unspecifiedT obacco consumptionC ancer of prostate with low recurrence risk (stage T1-2a and [place] < 7 and PSA < 10)Typical atrial flutterChron ic anticoagulat ionHypertrop hic cardiomyopat hyBody mass index [BMI] 38.0-38.9, adult Mar-0 3 Flo Caballero. [facility], [address] [place] [address], [id number], [place]. tel:[phone] Referring Provider: Ada Hernandez, [address], [address]. tel:[phone], [address], [place] tel:[phone] [facility] Hyperlipidem ia associated with type 2 diabetes mellitus 3 Flo Caballero. [address], [id number], [place]. tel:[phone], [address], [place] tel:[phone] [facility] No Information 2 Flo Caballero. [address], [id number], [place]. tel:[phone] Office o/p est low 20-[address], [address], [place] tel:[phone] [facility] pre op physical (chief complaint) Typical atrial flutterOSA on CPAPDependen ce on other enabling machines and devicesTobac co consumptionT ype 2 diabetes mellitus with other specified complication , without long-term current use of insulinHyper tension associated with diabetesHype rtension secondary to endocrine disordersBod y mass index [BMI] 40.0-44.9, [facility] for other preprocedura l examination 2 Flo Caballero. [address], [id number], [place]. tel:[phone] Referring Provider: Ada Hernandez, [address], [address]. tel:[phone], [address], [place] tel:[phone] Primary Care [facility] nurse visit (chief complaint) Unspecified atrial flutter 2 Flo Caballero. [facility], [address] [place] [address], [id number], [place]. tel:[phone] Referring Provider: Ada Hernandez, [address], [address]. tel:[phone] lting Provider: Infusion Nurse, [address] [place] [address], [address]. [facility], [address] [place] [address], [address], [place] tel:[phone] Primary Care [facility] Atrial flutter, unspecified type 2 Flo Caballero. [facility], [address] [place] [address], [id number], [place]. tel:[phone] [facility], [address] [place] [address], [address], [place] tel:[phone] [facility] Atrial flutter, unspecified type 2 Flo Caballero. [facility], [address] [place] [address], [id number], [place]. tel:[phone] Office o/p est mod 30-39 min [facility], [address] [place] [address], [address], [place] tel:[phone] Urgent Care Palpitations (chief complaint) Abnormal EKGPalpitati ons 2 Keaton Garrett. [facility], [address] [place] [address], [id number], [place]. tel:[phone] Referring Provider: Ada Hernandez, [address], [address]. tel:[phone] Office o/p est mod 30-39 min [facility], [address] [place] [address], [address], [place] tel:[phone] [facility] hypertension (chief complaint)di abetes - established (chief complaint) Pain, joint, knee, rightHx of prostatic malignancyTy pe 2 diabetes mellitus with diabetic macular edema, resolved following treatment, unspecified eyeObstructi ve sleep apnea (adult) (pediatric)E ssential (primary) hypertension Other specified diabetes mellitus with diabetic nephropathyB justino mass index [BMI] 40.0-44.9, adult Sep-2 2 Flo Caballero. [facility], [address] [place] [address], [id number], . tel:[phone] Referring Provider: Ada Rossi MD R, [address], [address]. tel:[phone], [facility], tel:[phone] [facility] No Information Sep- 2 Flo Caballero. [address], [id number], . tel:[phone] [facility], [address] [place] [address], [facility], [place] tel:[phone] [facility] Hyperlipidem ia associated with type 2 diabetes mellitus Sep-0 2 Flo Caballero. [facility], [address] [place] [address], [id number], [place]. tel:[phone] Office o/p est mod 30-[address], [facility], tel:[phone] [facility] rash (chief complaint)co ugh (chief complaint)Di abetes/HTN (chief complaint)mu sculoskeleta l pain (chief complaint) Hyperlipidem ia associated with type 2 diabetes mellitusHype rlipidemia, unspecifiedH ypertension associated with diabetesHype rtension secondary to endocrine disordersOSA on CPAPDependen ce on other enabling machines and devicesTobac co consumptionC ancer of prostate with low recurrence risk (stage T1-2a and [place] < 7 and PSA < 10)Arthritis of both kneesBody mass index [BMI] 40.0-44.9, adult Dec- 1 Flo Caballero. [facility], [address] [place] [address], [id number], [place]. tel:[phone] Referring Provider: Ada Hernandez, [address], [address]. tel:[phone] [facility], [address] [place] [address], [address], [place] tel:[phone] Primary Care [facility] Type 2 diabetes mellitus without complication s 1 Flo Caballero. [facility], [address] [place] [address], [id number], [place]. tel:[phone] [facility], [address] [place] [address], [address], [place] tel:[phone] [facility] No Information 1 Flo Caballero. [facility], [address] [place] [address], [id number], [place]. tel:[phone] Referring Provider: Ada Hernandez, [address], [address]. tel:[phone] lting Provider: Flo Noonan, [address], [address]. [facility], [address] [place] [address], [address], [place] tel:[phone] [facility] No Information Oct-0 1 Jose Webber. [facility], [address] [place] [address], [id number], [place]. tel:[phone] Referring Provider: Ada Hernandez, [address], [address]. tel:[phone] lting Provider: Jose Noonan, [address], [address]. Office o/p est low 20-29 min [address] [place], [address], [place] tel:[phone] [facility] prostate cancer (chief complaint) Cancer of prostate with low recurrence risk (stage T1-2a and [place] < 7 and PSA < 10)Body mass index [BMI]40.0-44 .9, adult Mar-0 3 1 Flo Caballero. [address], [id number], [place]. tel:[phone] Referring Provider: Ada Hernandez, [address], [address]. tel:[phone], [facility], tel:[phone] [facility] Cancer of prostate with low recurrence risk (stage T1-2a and [place] < 7 and PSA < 10) Oct-0 1 Flo Caballero. [facility], [address] [place] [address], [id number], [place]. tel:[phone] Office o/p est mod 30-[address], [facility], tel:[phone] [facility] Diagnostic test follow up (chief complaint) Erectile dysfunction associated with type 2 diabetes mellitusErec tile dysfunction due to diseases classified elsewhereHyp erlipidemia, unspecifiedH ypertension associated with diabetesHype rtension secondary to endocrine disordersOSA on CPAPDependen ce on other enabling machines and devicesTobac co consumptionB justino mass index [BMI] 39.0-39.9, adultProstat e nodule Feb- 1 Flo Geller [facility], [address] [place] [address], [id number], [place]. tel:[phone] Referring Provider: Ada Hernandez, [address], [address]. tel:[phone] Offic/outpt E&m Estab Mod-hi [address], [facility], tel:[phone] [facility] Discuss test results (chief complaint) Excessive drinking of alcoholHyper tension associated with diabetesType 2 diabetes mellitus with other kidney complication Hyperlipidem ia associated with type 2 diabetes mellitusBody mass index [BMI] 38.0-38.9, adult May- 2-202 0 No Information Referring Provider: Ada Hernandez, [address], [address]. tel:[phone] [facility], [address] [place] [address], [facility], [place] tel:[phone] [facility] Elevated PSA 0 Flo Caballero. [facility], [address] [place] [address], [id number], [place]. tel:[phone], [facility], [place] tel:[phone] [facility] Routine lab draw 0 Flo Caballero. [facility], [address] [place] [address], [id number], [place]. tel:[phone] Offic/outpt E&m Estab Mod-hi [address], [facility], tel:[phone] [facility] Diabetes/HTN (chief complaint) Hyperlipidem ia associated with type 2 diabetes mellitusHype rlipidemia, unspecifiedH ypertension associated with diabetesEsse ntial (primary) hypertension Nephrosis in diabetes mellitusOSA on CPAPDependen ce on other enabling machines and devicesCellu litis of external cheek, rightBody mass index (BMI) 36.0-36.9, adult Jul- 6-201 9 Flo Caballero. [address], [id number], [place]. tel:[phone] Referring Provider: Ada Hernandez, [address], [address]. tel:[phone] [facility], [address] [place] [address], [address], [place] tel:[phone] [facility] Abnormal laboratory test result Sep- 9 Flo Caballero. [facility], [address] [place] [address], [id number], [place]. tel:[phone] Offic/outpt E&m Estab Mod-hi 2 [facility], [address] [place] [address], [address], [place] tel:[phone] [facility] hypertension (chief complaint)di abetes - established (chief complaint) Hyperlipidem ia associated with type 2 diabetes mellitusHype rlipidemia, unspecifiedH ypertension associated with diabetesEsse ntial (primary) hypertension Left anterior knee painOSA on CPAPDependen ce on other enabling machines and devicesBody mass index (BMI) 36.0-36.9, adult Sep- 9 Flo Caballero. [facility], [address] [place] [address], [id number], [place]. tel:[phone] Referring Provider: Ada Rossi MD R, [address], [address]. tel:[phone] [facility], [address] [place] [address], [address], [place] tel:[phone] [facility] Type 2 diabetes mellitus with diabetic macular edema, resolved following treatment, unspecified eye Sep-0 9 Flo Caballero. [facility], [address] [place] [address], [id number], [place]. tel:[phone], [address], [place] tel:[phone] [facility] Hyperlipidem ia associated with type 2 diabetes mellitus Aug- 9 Flo Caballero. [facility], [address] [place] [address], [id number], [place]. tel:[phone] Offic/outpt E&m Estab Mod-hi 2 [facility], [address] [place] [address], [facility], tel:[phone] [facility] hypertension (chief complaint)mu sculoskeleta l pain (chief complaint) Type 2 diabetes mellitus without complication sHypertensio n associated with diabetesEsse ntial (primary) hypertension Hyperlipidem ia associated with type 2 diabetes mellitusHype rlipidemia, unspecifiedP ain in right kneePain in left kneeBody mass index (BMI) 37.0-37.9, adult December- 0-201 9 Flo Caballero. [facility], [address] [place] [address], [id number], [place]. tel:[phone] Referring Provider: Ada Hernandez, [address], [address]. tel:[phone], [facility], tel:[phone] [facility] Type 2 diabetes mellitus without complication sRoutine lab draw 9 Flo Caballero. [facility], [address] [place] [address], [id number], [place]. tel:[phone] Offic/outpt E&m Estab Mod-hi 2 [facility], [address] [place] [address], [facility], tel:[phone] [facility] joint pain (chief complaint) Arthritis of left kneeBody mass index (BMI) 36.0-36.9, adult 9 Flo Caballero. [address], [id number], [place]. tel:[phone] Referring Provider: Ada Hernandez, [address], [address]. tel:[phone] Offic/outpt E&m Estab Low-mod [facility], [address] [place] [address], [facility], [place] tel:[phone] Primary Care [facility] musculoskele osito pain (chief complaint) Recurrent pain of left kneeBody mass index (BMI) 36.0-36.9, adult 9 Michael Mcneill. [facility], [address] [place] [address], [id number], [place]. tel:[phone] Referring Provider: Charito Wright, [address], [address]. tel:[phone] Offic/outpt E&m Estab Mod-hi 2 [facility], [address] [place] [address], [facility], [place] tel:[phone] [facility] hypertension (chief complaint) Hyperlipidem ia associated with type 2 diabetes mellitusHype rlipidemia, unspecifiedH ypertension associated with diabetesEsse ntial (primary) hypertension Nephrosis in diabetes mellitusBody mass index (BMI) 38.0-38.9, adult 9 Flo Caballero. [facility], [address] [place] [address], [id number], [place]. tel:[phone] Referring Provider: Ada Hernandez, [address], [address]. tel:[phone] Offic/outpt E&m Estab 5 Min [facility], [address] [place] [address], [facility], [place] tel:[phone] [facility] nurse visit (chief complaint) Essential (primary) hypertension 9 Flo Caballero. [address], [id number], [place]. tel:[phone] Referring Provider: Ada Hernandez, [address], [address]. tel:[phone] lting Provider: Flo Nurse, [address], [address]. Offic/outpt E&m Estab 5 Min [facility], [address] [place] [address], [facility], tel:[phone] [facility] nurse visit (chief complaint) Essential (primary) hypertension Flo Caballero. [address], [id number], . tel:[phone] Referring Provider: Ada Hernandez, [address], [address]. tel:[phone] lting Provider: Flo Nurse, [address], [facility]. Offic/outpt E&m Estab [facility]-ar [address], [facility] [facility], tel:[phone] [facility] hypertension (chief complaint) Hypertensive urgencyHyper tension associated with diabetesHype rlipidemia associated with type 2 diabetes mellitusHype rlipidemia, unspecifiedN ephrosis in diabetes mellitusOSA on CPAPDependen ce on other enabling machines and devicesTobac co consumptionB justino mass index (BMI) 38.0-38.9, adult 9 Flo Caballero. [address], [id number], [place]. tel:[phone] Referring Provider: Ada Hernandez, [address], [address]. tel:[phone] Offic/outpt E&m Estab Mod-hi [address], [facility], [place] tel:[phone] [facility] hypertension (chief complaint) Erectile dysfunction associated with type 2 diabetes mellitusErec tile dysfunction due to diseases classified elsewhereHyp erlipidemia, unspecifiedT obacco consumptionB justino mass index (BMI) 38.0-38.9, adultHyperte nsion associated with diabetes 8 Flo Caballero. [facility], [address] [place] [address], [id number], [place]. tel:[phone] Referring Provider: Ada Hernandez, [address], [address]. tel:[phone] [facility], [address] [place] [address], [facility], [place] tel:[phone] Primary Care [facility] Type 2 diabetes mellitus without complication s 8 Flo Caballero. [facility], [address] [place] [address], [id number], [place]. tel:[phone] [facility], [address] [place] [address], [facility], [place] tel:[phone] [facility] musculoskele osito pain (chief complaint) Paresthesias Essential (primary) hypertension Body mass index (BMI) 38.0-38.9, adult 8 Johnnie Saha. [facility], [address] [place] [address], [facility], [place]. tel:[phone] Referring Provider: Ada Hernandez, [address], [address]. tel:[phone] [facility], [address] [place] [address], [facility], [place] tel:[phone] [facility] hypertension (chief complaint) Erectile dysfunction associated with type 2 diabetes mellitusErec tile dysfunction due to diseases classified elsewhereHyp erlipidemia, unspecifiedH ypertension associated with diabetesEsse ntial (primary) hypertension Tobacco consumptionB justino mass index (BMI) 37.0-37.9, adult 8 Flo Caballero. [facility], [address] [place] [address], [id number], [place]. tel:[phone] Referring Provider: Ada Hernandez, [address], [address]. tel:[phone] [facility], [address] [place] [address], [address], [place] tel:[phone] [facility] Abnormal laboratory test result 8 Flo Caballero. [facility], [address] [place] [address], [id number], [place]. tel:[phone] Offic/outpt E&m Estab Mod-hi [address], [facility], [place] tel:[phone] [facility] Diabetes/HTN (chief complaint) Type 2 diabetes mellitus with other specified complication , without long-term current use of insulinHyper lipidemia, unspecifiedH ypertension associated with diabetesEsse ntial (primary) hypertension Tobacco consumptionB justino mass index (BMI) 38.0-38.9, adult Apr- 8 Flo Caballero. [facility], [address] [place] [address], [id number], [place]. tel:[phone] Referring Provider: Ada Rossi MD R, [address], [address]. tel:[phone], [facility], [place] tel:[phone] [facility] Hyperlipidem ia associated with type 2 diabetes mellitus 8 Flo Caballero. [facility], [address] [place] [address], [id number], [place]. tel:[phone] Offic/outpt E&m Estab Mod-hi 2 [facility], [address] [place] [address], [address], [place] tel:[phone] [facility] Diabetes/HTN (chief complaint) Mild asthma without complication , unspecified whether persistentHy perlipidemia associated with type 2 diabetes mellitusHype rlipidemia, unspecifiedH ypertension associated with diabetesEsse ntial (primary) hypertension Tobacco consumptionO SA on CPAPDependen ce on other enabling machines and devicesErect ile dysfunction due to diseases classified elsewhereBod y mass index (BMI) 39.0-39.9, adult 7 Flo Caballero. [facility], [address] [place] [address], [id number], . tel:[phone] Referring Provider: Ada Hernandez, [address], [address]. tel:[phone] Offic/outpt E&m Estab Mod-ar [address], [facility], tel:[phone] Primary Care [facility] Diabetes/HTN (chief complaint)Mu sculoskeleta l pain (chief complaint)mu sculoskeleta l pain (chief complaint) Hypertension associated with diabetesEsse ntial (primary) hypertension Tobacco consumptionT ype 2 diabetes mellitus with other specified complication , without long-term current use of insulinHyper lipidemia, unspecifiedN octuriaBody mass index (BMI) 39.0-39.9, adult 7 Flo Caballero. [facility], [address] [place] [address], [id number], [place]. tel:[phone] Referring Provider: Ada Hernandez, [address], [address]. tel:[phone] [facility], [address] [place] [address], [facility], [place] tel:[phone] Radiology [facility] No Information 6 No Information Referring Provider: Ada Hernandez, [address], [address]. tel:[phone] Offic/outpt E&m Estab [facility]-hi [address], [facility], [place] tel:[phone] [facility] Diabetes/HTN (chief complaint) Hyperlipidem ia associated with type 2 diabetes mellitusHype rlipidemia, unspecifiedH ypertension associated with diabetesEsse ntial (primary) hypertension KIKA on CPAPBPH (benign prostatic hypertrophy) with urinary obstructionO ther obstructive and reflux uropathyBody mass index (BMI) 37.0-37.9, adult 8 6 Flo Caballero. [address], [id number], [place]. tel:[phone] Referring Provider: Ada Hernandez, [address], [address]. tel:[phone], [facility], [place] tel:[phone] [facility] Type 2 diabetes mellitus without complication sScreening 6 Flo Caballero. [address], [id number], [place]. tel:[phone] Offic/outpt E&m Estab Mod-hi [address], [address], [place] tel:[phone] [facility] Follow Up of Cough (chief complaint) Type 2 diabetes mellitus with other specified complication Tobacco consumptionH ypertension associated with diabetesEsse ntial (primary) hypertension Hyperlipidem ia, unspecifiedN ephrosis in diabetes mellitusLeft anterior knee painBody mass index (BMI) 37.0-37.9, adult 0201 6 Flo Caballero. [address], [id number], [place]. tel:[phone] Referring Provider: Ada Hernandez, [address], [address]. tel:[phone], [address], [place] tel:[phone] [address] [facility] No Information 6 No Information Referring Provider: Ada Hernandez, [address], [address]. tel:[phone] [facility], [address] [place] [address], [address], [place] tel:[phone] Primary Care [facility] Abnormal CXR 6 Flo Caballero. [facility], [address] [place] [address], [id number], [place]. tel:[phone] [facility], [address] [place] [address], [address], [place] tel:[phone] Radiology [facility] No Information 6 No Information Offic/outpt E&m Estab Low-mod [facility], [address] [place] [address], [address], [place] tel:[phone] Primary Care [facility] Cough (chief complaint) CoughAbnorma l CXRBody mass index (BMI) 36.0-36.9, adult 6 No Information Referring Provider: Ada Hernandez, [address], [address]. tel:[phone], [address], [place] tel:[phone] Radiology [facility] No Information No Information Referring Provider: Tami Guadalupe, [address], [address]. tel:[phone] Offic/outpt E&m Estab Mod-hi 2 [facility], [address] [place] [address], [address], [place] tel:[phone] Urgent Care cough (chief complaint) Encounter for screening for respiratory disorder NECCoughPneu monia due to organismHypo tension, unspecified hypotension typeBody mass index (BMI) 34.0-34.9, adult Oct- 6 Keaton Garrett. [facility], [address] [place] [address], [id number], [place]. tel:[phone] Referring Provider: Ada Hernandez, [address], [address]. tel:[phone] [facility], [address] [place] [address], [address], [place] tel:[phone] [facility] Type 2 diabetes mellitus with other diabetic kidney complication Routine lab draw 6 Flo Caballero. [facility], [address] [place] [address], [id number], [place]. tel:[phone] [facility], [address] [place] [address], [address], [place] tel:[phone] [facility] Type 2 diabetes mellitus with other diabetic kidney complication 5 Flo Caballero. [facility], [address] [place] [address], [id number], [place]. tel:[phone] Offic/outpt E&m Estab Low-mod [facility], [address] [place] [address], [address], [place] tel:[phone] [facility] Diabetes/HTN (chief complaint) Essential (primary) hypertension Type 2 diabetes mellitus with diabetic nephropathyB justino mass index (BMI) 36.0-36.9, adult Oct- 0- 5 Flo Caballero. [facility], [address] [place] [address], [id number], [place]. tel:[phone] Referring Provider: Ada Hernandez, [address], [address]. tel:[phone] [facility], [address] [place] [address], [address], [place] tel:[phone] [facility] Type 2 diabetes mellitus with other diabetic kidney complication 2- 5 Flo Caballero. [facility], [address] [place] [address], [id number], [place]. tel:[phone] Offic/outpt E&m Estab Mod-hi 2 [facility], [address] [place] [address], [address], [place] tel:[phone] [facility] Diabetes - established (chief complaint) Unspecified essential hypertension Asthma, unspecifiedD iabetes mellitus with renal manifestatio ns, type II or unspecified type, not stated as uncontrolled Body Mass Index 36.0-36.9, erlinda 5 Flo Caballero. [facility], [address] [place] [address], [id number], [place]. tel:[phone] Referring Provider: Ada Hernandez, [address], [address]. tel:[phone], [facility], [place] tel:[phone] [facility] Diabetes mellitus Feb- 5 Flo Caballero. [facility], [address] [place] [address], [id number], [place]. tel:[phone] [facility] E&m Estab Pt; 40-[address], [address], [place] tel:[phone] [facility] preventive exam (chief complaint) ROUTINE MEDICAL EXAMBody Mass Index 38.0-38.9, aduUnspecifi ed sleep apneaUnspeci fied essential hypertension Nephrotic syndrome in diseases classified elsewhereDia betes mellitus without mention of complication , type II or unspecified type, not stated as uncontrolled Other and unspecified hyperlipidem iaLeft knee pain 5 Flo Caballero. [facility], [address] [place] [address], [id number], [place]. tel:[phone] Referring Provider: Ada Hernandez, [address], [address]. tel:[phone] [facility], [address] [place] [address], [address], [place] tel:[phone] [facility] No Information 4 Norberto LEX Lavonne. [facility], [address] [place] [address], [id number], [place]. tel:[phone] Referring Provider: Lavonnecarlene Thornton OD N, [address], [address]. tel:[phone] Offic/outpt E&m Estab Mod-hi 2 [facility], [address] [place] [address], [facility], [place] tel:[phone] Primary Care [facility] First Visit (chief complaint) Body Mass Index 37.0-37.9, aduOSA on CPAPHyperten frederick associated with diabetesUnsp ecified essential hypertension Nephrosis in diabetes mellitusNeph rotic syndrome in diseases classified elsewhereDia betes mellitusHype rlipidemiaAs thmaObeseTob acco consumption 4 Flo Caballero. [facility], [address] [place] [address], [id number], [place]. tel:[phone] Referring Provider: Ada Rossi MD R, [address], [address]. tel:[phone] [facility], [address] [place] [address], [facility], [place] tel:[phone] Radiology [facility] No Information 0 No Information [facility], [address] [place] [address], [address], [place] tel:[phone] Diagnostic Services [facility] No Information 200 7 Navdeep [facility] Kevan. [facility], [address] [place] [address], [id number], [place]. tel:[phone] Family History Family Member Type Diagnosis Age At Onset Problem No family history of Glaucom a Problem No family history of Macular degeneration Problem No family history of Catarac ts Immunizations Vaccine Date Status Comments Shingrix administered Source: New Imm unization Record COVID-19 MODERNA(12Y+) administered [facility] e: Other Registry SARS-COV-2 (COVID-19) vaccin e, [...] Insurance type Covered democrat ID Authoriza tion(s) [place] [employer] [place] [id number] [place] [employer] [place] [id number] [employer] HM [id number] [employer] [place] [id number] [employer] HM [id number] Social History Type Description Quantity Date Captured Comments Sex Male Smoking Status No Information Chief Complaint And Reason For Visit No Information Reason For Referral Reason For Referral No Information Plan Of Treatment Date Type Action Status Goal FOBT. Due on due Goal Zoster vaccine (1st) due Goal Lipid panel. Due on 030 due Goal Hepatitis C scre ening. Due on due Goal Sigmoidoscopy. Due on due Goal Unhealthy drug u se screening. Due on due Goal FIT. Due on due Goal Colonoscopy. Due on 023 due Goal FIT-DNA. Due on due Goal Diabetes Screeni ng (BMI 25 and above) - HgbA1C. Due on due Goal Zoster vaccine ( 2nd). Due on due Goal Alcohol Misuse S creening. Due on due Goal CT-Colonography. Due on due Goal Blood Pressure S creening (Annual). Due on due Goal Depression scree padilla. Due on due Goal Td vaccine. Due on due Goal Lipid panel. Due on due Goal Depression scree padilla. Due on due Goal FIT-DNA. Due on due Goal Blood Pressure S creening (Annual). Due on due Goal Diabetes Screeni ng (BMI 25 and above) - HgbA1C. Due on due Goal CT-Colonography. Due on due Goal Zoster vaccine ( 2nd). Due on due Goal Sigmoidoscopy. Due on due Goal Colonoscopy. Due on 023 due Goal FOBT. Due on due Goal Hepatitis C scre ening. Due on due Goal Unhealthy drug u se screening. Due on due Goal Zoster vaccine (1st) due Goal FIT. Due on due Goal Td vaccine. Due on due Goal Alcohol Misuse S creening. Due on due Goal Blood Pressure S creening (Annual). Due on due Goal FIT-DNA. Due on due Goal FIT. Due on due Goal Sigmoidoscopy. Due on due Goal Colonoscopy. Due on due Goal Zoster vaccine (1st) due Goal Hepatitis C scre ening. Due on due Goal Diabetes Screeni ng (BMI 25 and above) - HgbA1C. Due on due Goal Depression scree padilla. Due on due Goal Alcohol Misuse S creening. Due on due Goal CT-Colonography. Due on due Goal FOBT. Due on due Goal Lipid panel. Due on 030 due Goal Unhealthy drug u se screening. Due on due Goal Td vaccine. Due on due Goal Zoster vaccine ( 2nd). Due on due Goal FIT. Due on [...] due Goal Colonoscopy. Due on due Goal FOBT. Due on due Goal FIT. Due on due Goal CT-Colonography. Due on due Goal Alcohol Misuse S creening. Due on due Goal Hepatitis C scre ening. Due on due Goal Sigmoidoscopy. Due on due Goal Depression scree padilla. Due on due Goal Lipid panel. Due on due Goal FIT-DNA. Due on due Goal Zoster vaccine (1st) due Goal Blood Pressure S creening (Annual). Due on due Goal Unhealthy drug u se screening. Due on due Goal FOBT. Due on due Goal Colonoscopy. Due on due Goal Hepatitis C scre ening. Due on due Goal Sigmoidoscopy. Due on due Goal FIT. Due on due Goal Unhealthy drug u se screening. Due on due Goal FIT-DNA. Due on due Goal Blood Pressure S creening (Annual). Due on due Goal Zoster vaccine ( 1st). Due on due Goal Lipid panel. Due on due Goal Zoster vaccine. Due on due Goal CT-Colonography. Due on due Goal Alcohol Misuse S creening. Due on due Goal Depression scree padilla. Due on due Goal Diabetes Screeni ng (BMI 25 and above) - HgbA1C. Due on due Goal FOBT. Due on due Goal Zoster vaccine ( 1st). Due on due Goal Hepatitis C scre ening. Due on due Goal Diabetes Screeni ng [...] vaccine ( 1st). Due on due Goal Alcohol Misuse S [...] vaccine ( 1st). Due on due Goal Alcohol Misuse S creening. Due on due Goal Hepatitis C scre ening. Due on due Goal FOBT. Due on due Goal Unhealthy drug u se screening. Due on due Goal Lipid panel. Due on due Goal Zoster vaccine ( 1st). Due on due Goal Zoster vaccine. Due [...] due Goal FIT. Due on due Goal Hepatitis C scre ening. Due on due Goal Zoster vaccine ( [...] vaccine ( ). Due on due Goal Diabetes Screeni ng (BMI 25 and above) - HgbA1C. Due on due Goal Lipid panel. Due on 027 due Goal Hepatitis C scre ening. Due on due Goal Alcohol Misuse S creening. Due on due Goal Depression scree padilla. Due on due Goal FOBT. Due on due Goal FIT. Due on due Goal Blood Pressure S creening (Annual). Due on due Goal Zoster vaccine ( ). Due on due Goal Diabetes Screeni ng (BMI 25 and above) - HgbA1C. Due on due Goal Alcohol Misuse S creening. Due on due Goal Blood Pressure S creening (Annual). Due on due Goal Colonoscopy. Due on due Goal Lipid panel. Due on 026 due Goal Depression scree padilla. Due on due Goal Sigmoidoscopy. Due on due Goal FOBT. Due on due Goal Colonoscopy. Due on due Goal Depression scree padilla. Due on due Goal Diabetes Screeni ng (BMI 25 and above) - HgbA1C. Due on due Goal FOBT. Due on due Goal Sigmoidoscopy. Due on due Goal Blood Pressure S creening (Annual). Due on due Goal Lipid panel. Due on due Goal Zoster vaccine ( 1st). Due on due Goal Alcohol Misuse S creening. Due on due Goal FOBT. Due on due Goal Lipid panel. Due on due Goal Blood Pressure S creening (Annual). Due on due Goal Zoster vaccine ( ). Due on due Goal Depression scree padilla. Due on due Goal Alcohol Misuse S creening. Due on due Goal Sigmoidoscopy. Due on due Goal Colonoscopy. Due on due Goal Diabetes Screeni ng (BMI 25 and above) - HgbA1C. Due on due Goal Colonoscopy. Due on 020 due Goal Diabetes Screeni ng (BMI 25 and above) - HgbA1C. Due on due Goal Blood Pressure S creening (Annual). Due on due Goal FOBT. Due on due Goal Lipid panel. Due on due Goal Zoster vaccine ( ). Due on due Goal Depression scree padilla. Due on due Goal Sigmoidoscopy. Due on due Goal Alcohol Misuse S creening. Due on due Goal Alcohol Misuse S creening. Due on due Goal Depression scree padilla. Due on due Goal FOBT. Due on due Goal Zoster vaccine ( ). Due on due Goal Colonoscopy. Due on due Goal Lipid panel. Due on due Goal Sigmoidoscopy. Due on due Goal Blood Pressure S creening (Annual). Due on due Goal Diabetes Screeni ng (BMI 25 and above) - HgbA1C. Due on due Goal Blood Pressure S creening (Annual). Due on due Goal Zoster vaccine ( 1st). Due on due Goal Alcohol Misuse S creening. Due on due Goal Lipid panel. Due on due Goal Colonoscopy. Due on due Goal Sigmoidoscopy. Due on due Goal Depression scree padilla. Due on due Goal FOBT. Due on due Goal Diabetes Screeni ng (BMI 25 and above) - HgbA1C. Due on due Goal Alcohol Misuse S [...] Depression scree padilla. Due on due Goal Depression scree padilla. [...] due Goal FOBT. Due on due Goal HIV Screen due Goal Blood Pressure S creening (Annual). Due on due Goal Sigmoidoscopy. Due on due Goal Hep C Ab (Hepatitis C Ab) du e Goal Alcohol Misuse S creening. Due on due Goal Blood Pressure S creening (Annual). Due on due Goal Alcohol Misuse S creening. Due on due Goal Daily low dose a spirin - High risk for cardiovascular disease due Goal FOBT. Due on due Goal Daily low dose a spirin - High risk for cardiovascular disease due Goal Hep C Ab (Hepatitis C Ab) du e Goal Pneumovax 23 due Goal Blood Pressure S creening (Annual). Due on due Goal Daily low dose a spirin - High risk for cardiovascular disease. Due on due Goal Influenza vaccine. Due on due Goal Diabetes Screeni ng (BMI 25 and above) - HgbA1C. Due on due Goal Depression scree padilla. Due on due Goal Alcohol Misuse S creening. Due on due Goal Pneumococcal vaccine due Goal HIV Screen. Due on 16 due Goal Hep C Ab (Hepati tis C Ab). Due on due Goal Tdap due Referral Ordered: Shiv Jones DDS (related to Gingival hypertrophy) ordered Referral Referred To: Shiv Jones DDS [address], [address] [phone] Ordered: Referrals: Shiv Jones DDS Appointment date/timeframe: 1 Month ordered Referral Ordered: Clavicle - Xray left clavicle Appointment date/timeframe: 08/21/2024 ordered Referral Referred To: [facility] Diagnostic Tests [facility] [place], [address] [phone] Ordered: Referrals: [facility] Diagnostic Tests ordered Referral Referred To: [place] [address] [place], [address] [phone] Ordered: Referrals: [facility] ordered Referral Referred To: [place] Ordered: Referrals: [place] ordered Referral Ordered: Overnight Pulse Oximetry ordered Referral Referred To: Yung Martinez MD [facility] Radiation Oncology [address] [place] [address], [address] [phone] Ordered: Referrals: Yung Martinez MD. Evaluate and treat ordered Referral Ordered: Jamison Angeles MD (related to Elevated PSA) ordered Referral Referred To: Jamison Angeles MD [facility] [address] [place], [address] [phone] Ordered: Referrals: Jamison Angeles MD ordered Referral Ordered: Bladder - US Bladder ordered Referral Ordered: [facility] (related to Left anterior knee pain) ordered Referral Referred To: [facility], [address] [phone] Ordered: Referrals: [facility]. Evaluate and treat ordered Referral Ordered: Chest PA & LAT - Xray chest ordered Referral Ordered: Chest PA & LAT - Xray ordered Appointment Chet Carver BOOKED Patient Education Knee Arthritis: Exercis es completed Future Order: Lab Order Urinalys is, Routine ([id number]), Sent on: Sent Future Order: Lab Order Urinalys is, Routine ([id number]), Sent on: Sent Future Order: Lab Order Albumin/ Creat Ratio ([id number]), Sent on: Sent Future Order: Lab Order Basic Me tabolic Panel (8) ([id number]), Sent on: Sent Future Order: Lab Order CBC, Shiva telet; No Differential ([id number]), Sent on: Sent Future Order: Lab Order Comp. Me tabolic Panel (14) ([id number]), Sent on: Sent Future Order: Lab Order Hemoglob in A1c ([id number]), Sent on: Sent Future Order: Lab Order Lipid Pa eve[place] With LDL/HDL Ratio ([id number]), Sent on: Sent Future Order: Lab Order Prostate -Specific Ag, Serum ([id number]), Sent on: Sent Future Order: Lab Order TSH ([id number]), Sen t on: Sent Future Order: Lab Order Microalb /Creat Ratio, Crystal Davies ([id number]), Sent on: Sent Future Order: Lab Order Vitamin D, 25-Hydroxy ([id number]), Sent on: Sent History Of Present Illness [...] before other Atrial Flutter A blation in to ER a few days after for [...] about it. Was able to go to [place] and lots of walking.No chest pains, no [...] he started worrying about the flight to [place]). The ativan helped a lot. Flight was [...] eye exam was done on 06/13/2014 by LVAONNE THORNTON Diabetes/HTN Risk factors inc lude age [...] information: he was diagnosed with prostate cancer [place] 7, psa is less than 10. he's [...] Takes prescribed medications. Not followed by a [employer]. Patient reports numb/tingling of hands or feet. [...] and visual disturbances. Diabetes/HTN Risk factors inc lude age > [...] bp being uncontrolled. Diabetes/HTN Risk factors inc ryane age > 50 years, race () and [...] of the fingers. Diabetes/HTN Risk factors inc lude age > [...] ed to Hypertension secondary to endocrine disorders stable on cpap. Related to KIKA o n CPAP doing well- not in a fib anymore. [...] on statin now. Related to Hypertrophic cardiomyopathy he's done well- in c lose observation stage. Related to Hx of prostatic malignancy Their diabetes is fa irly well controlled, continue current medications, baby aspirin, recheck here with DM labs (bmp, albumin, hba1c, lipid panel) in 3-4 months; continue to work on diet/exercise. Check feet regularly; discussed yearly eye exam, offered vaccines. Avoid simple sugars, processed carbohydrates, sweetened beverages. on statin- doing well on this. Related to Hyperlipidemia associated with type 2 diabetes mellitus I'd recommend muscle rubs, heat; tylenol pm ok, massage would also help; see cospt- if not improving over next few weeks, would need mri neck. Related to Chronic left shoulder pain stable; renewed meds Related to Erectile dysfunction due to diseases classified elsewhere stable on cpap. Related to KIKA o n CPAP We discussed treatme nt plan, importance of controlling, risks if untreated. Medications well tolerated; exercise and low sodium diet reviewed. Safe ongoing blood pressure numbers 130-90/85-40. Call our office if top number 160-180 range, bottom 95-105 range for appointment. 210+/120+ needs action now. Recheck in office in 3-4 months. Avoid NSAIDS like ibuprofen, naproxen, high aspirin doses. Related to Hypertension associated with diabetes Their diabetes is fa irly well controlled, continue current medications, baby aspirin, recheck here with DM labs (bmp, albumin, hba1c, lipid panel) in 3-4 months; continue to work on diet/exercise. Check feet regularly; discussed yearly eye exam, offered vaccines. Avoid simple sugars, processed carbohydrates, sweetened beverages. Related to Hyperlipidemia associated with type 2 diabetes mellitus PSA has been good- s eeing Dr. Tejeda- active surveillance. Related to History of prostate cancer stable - seeing onco logy regularly; still [...] gars still regularly. Related to Tobacco consumption improved with bp control. 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 Check feet regularly; discussed yearly eye exam, offered vaccines. Avoid simple sugars, processed carbohydrates, sweetened beverages. Related to Erectile dysfunction associated with type 2 diabetes mellitus stable [...] defibrillator for hcm. Related to Chronic anticoagulation he's quit smoking co mpletely, doing well. Related to Tobacco consumption eating much better Related to Hy perlipidemia associated with type 2 diabetes mellitus Not under great cont rol today- he's [...] Related to Hypertension associated with diabetes Mr. 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 he was recommended [...] shortness of breath. Related to Abnormal EKG stable Related to Obstr uctive sleep apnea [...] aspirin doses. Related to Essential (primary) hypertension Their diabetes is fa irly well controlled, continue current medications, baby aspirin, recheck here with DM labs (bmp, albumin, hba1c, lipid panel) in 3-4 months; continue to work on diet/exercise. Check feet regularly; discussed yearly eye exam, offered vaccines. Avoid simple sugars, processed carbohydrates, sweetened beverages. 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 Related to Hx of prostatic malignancy Both knees, R worse than left. planning knee replacement soon. Related to Pain, joint, knee, right he's done with most treatment- will have close f/u still. Related to Cancer of prostate with low recurrence risk (stage T1-2a and [place] < 7 and PSA < 10) We gave patient a st eroid shot [...] gain. Related to Arthritis of both knees stable presently- on cpap - has not been seen by pulmonary in a long time; overnight pulse ox pending. Related to KIKA on CPAP We discussed treatme nt plan, importance of controlling, risks if untreated. Medications well tolerated; exercise and low sodium diet reviewed. Safe ongoing blood pressure numbers 130-90/85-40. Call our office if top number 160-180 range, bottom 95-105 range for appointment. 210+/120+ needs action now. Recheck in office in 3-4 months. Avoid NSAIDS like ibuprofen, naproxen, high aspirin doses. Related to Hypertension associated with diabetes Their diabetes is fa irly well controlled, continue current medications, baby aspirin, recheck here with DM labs (bmp, albumin, hba1c, lipid panel) in 3-4 months; continue to work on diet/exercise. Check feet regularly; discussed yearly eye exam, offered vaccines. Avoid simple sugars, processed carbohydrates, sweetened beverages. Related to Hyperlipidemia associated with type [address] to [address] Martinez- he's very interested [...] with low recurrence risk (stage T1-2a and [place] < 7 and PSA < 10) he should get the bi opsy and see what's happening then go from there. Related to Prostate nodule using cpap- we can do supplies. Related to KIKA on CPAP he's in precontemplative mode no w. Related to Tobacco consumption We discussed treatme nt plan, importance of controlling, risks if untreated. Medications well tolerated; exercise and low sodium diet reviewed. Safe ongoing blood pressure numbers 130-90/85-40. Call our office if top number 160-180 range, bottom 95-105 range for appointment. 210+/120+ needs action now. Recheck in office in 3-4 months. Avoid NSAIDS like ibuprofen, naproxen, high aspirin doses. Related to Hypertension associated with diabetes renewed meds earlier this year. Related to Erectile dysfunction associated with type 2 diabetes mellitus stable. Related to Hyper lipidemia, unspecified Discussed that the r ecent increase because [...] alcohol Related to Excessive drinking of alcohol LDL a little highASC VD risk ~ 25%. After discussion with pt we will start baby aspirin daily and recheck labs in 3 months. Likely will need to start a cholesterol medicine at that point anyway, but may need a smaller dose. Related to Hyperlipidemia associated with type 2 diabetes mellitus No longer on metform in, A1c 6.1%Continue [...] Related to Cellulitis of external cheek, right still using machine daily. Relat ed to KIKA on CPAP improved with better bp control, compliance with meds. 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 Related to Hypertension associated with diabetes Their diabetes is fa irly well controlled, continue current medications, baby aspirin, recheck here with DM labs (bmp, albumin, hba1c, lipid panel) in 3-4 months; continue to work on diet/exercise. Check feet regularly; discussed yearly eye exam, offered vaccines. Avoid simple sugars, processed carbohydrates, sweetened beverages. Related to Hyperlipidemia associated with type 2 diabetes mellitus see above. Related to Depen dence on other enabling machines and devices he may have desloge send us cpap supply order Related to KIKA on CPAP bp in general is imp roved on [...] better Related to Pain in left knee stable Related to Hyper lipidemia associated with type 2 diabetes mellitus much improved after joint effusion removed. Related to Pain in right knee Their diabetes is fa irly well controlled, [...] days. Related to Arthritis of left knee we seem to have mickey arredondo a much better regimen for him- nifedipine, coreg and losartan- his renin/aldosterone levels were abnormal BUT he was on losartan at this time- need to get ultrasound kidneys for him and maybe a fludorocortisone suppresion test if we can't take him off losartan soon (needs to be off and repeat labs to rule out hyperaldosteronism. Related to Hypertension associated with diabetes bit worse but we'll recheck labs in 3 mos. 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 Related to Nephr osis in diabetes mellitus needs cpap supplies- he's off cpap due to not having supplies and certainly needs as bp very high- will get to him benitez. Related to Dependence on other enabling machines and devices due for labs. Related to Hyper lipidemia [...] add another agent Related to Hypertensive urgency avoid tobacco whenev er/wherever possible. Related to Tobacco consumption still not at goal; arnulfo francisco numbers look great- but bp up- stop [...] and states he will drive to the [facility] ER. Advised to stop along the way if further symptoms develop and DIAL 911! Related to Paresthesias -Uncontrolled. BP 18 2/106. Hasn't taken blood pressure medications today. Related to Essential (primary) hypertension stable. Related to Hyper lipidemia, unspecified back off of this. Related to Tob acco consumption stable. Related to Erect ile dysfunction associated with type 2 diabetes mellitus Hypertension uncontr olled; recommend keep up low sodium diet; daily exercise; work on stress reduction and recheck once or twice per week over next few weeks; needs bmp, ua, microalbumin before next visit. Recheck here in 3-4 months. Related to Hypertension associated with diabetes cut back on the cigars. Related to Tobacco consumption he's been stable. Related to Hyp erlipidemia, unspecified hba1c is ok- for thi s I'd recommend starting metformin again- take daily; slow down on alcohol intake. Related to Type 2 diabetes mellitus with other specified complication, without long-term current use of insulin Hypertension uncontr olled; recommend keep up low [...] Erectile dysfunction due to diseases classified elsewhere stable on cpap. Related to KIKA o n CPAP stop metoprolol- may be a factor in weight gain- discussed exercisign on elliptical again and working on weight- he'll keep on amlodipine and start on losartan as well. call with bp above 150/90. Related to Hypertension associated with diabetes work on quitting- le t us know if we can help in any way Related to Tobacco consumption stable presently Related to Hype rlipidemia associated with type 2 diabetes mellitus his breathing has be en doing good lately Related to Mild asthma without complication, unspecified whether persistent stable. Related to Hyper lipidemia, unspecified diabetes fairly well controlled, continue current medications, baby aspirin, recheck here with DM labs in 3-4 months; continue to work on diet/exercise. check feet regularly; discussed yearly eye exam, offered vaccines. Related to Type 2 diabetes mellitus with other specified complication, without long-term current use of insulin We discussed treatme nt plan, importance of controlling, risks if untreated. Medications well tolerated; exercise and low sodium diet reviewed. Safe ongoing blood pressure numbers 130-90/85-40. Call our office if top number 160-180 range, bottom 95-105 range for appointment. 210+/120+ needs action now. Recheck in office in 3-4 months. Related to Hypertension associated with diabetes see above. Related to Other obstructive and reflux uropathy he's been on his cpa p machine; out of distilled water. Related to KIKA on CPAP labs look fantastic this benjy arredondo Related [...] PSA. Related to Hypertension associated with diabetes ultrasound pending- psa has come down. 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 Related to ROUTINE MEDICAL EXAM offered flu shot; ga ve pneumovax, tdap Related to Asthma will check labs and assess. pt unaware of this. 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 due for labs; Related to Diabetes mellitus stable. will check labs. Related to Hyperlipidemia see above; may need adjustment- 40per day benicar? Related to Unspecified essential hypertension work on decreasing t his- it would help. Related to Tobacco consumption stable; keep up meto prolol; benicar, lotrel. Related to Hypertension associated with diabetes stable; sees Dr Berry guevara for this; compliant on cpap. Related to KIKA on CPAP vaccine info Related to Nephr osis in diabetes mellitus Assessments Type Assessment Date No Information Patient Care Teams Name Effective Dates (start - stop) Status Members No Information
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
--- OUTSIDE RECORDS SUMMARY | 2025-06-15 13:18 | XMS_ITS ---
[facility] Care Team Organization Name Specialty Phone Email Start Date End Da te [facility] MADDIE MACHADO Primary Care 08/24/2022 04/03/2024
--- OUTSIDE RECORDS SUMMARY | 2025-06-15 13:18 | XMS_ITS | Clinical Summary ---
Author Organization [facility] Address [address] [place] [address] Phone Care Team Providers Care Director Trial Name Role Phone Cas Toussaint MD Primary Care Provider [phone] Medical History Medical History Date Comments Allergic rhinitis 11/11/2011 DX:Allergic rh initis Anemia 05/19/2018 DX:Anemia Anxiety 07/22/2017 DX:Anxiety Asthma 11/10/2016 DX:Asthma Chronic reflux esophagitis 07/22/2017 DX:Ch ronic reflux esophagitis Depression 01/19/2017 DX:Depression Erectile dysfunction 07/22/2017 DX:Erectile dysfunction Hyperlipidemia 07/22/2017 DX:Hyperlipidemi a Hypertension 04/11/2018 DX:Hypertension Hypertrophy of prostate with urinary obstruction and other lower urinary tract symptoms (LUTS) 11/11/2011 DX:Hypertrophy of prostate w ith urinary obstruction and other lower urinary tract symptoms (LUTS) OA (osteoarthritis) 05/19/2018 DX:OA (osteo arthritis) Family History Medical History Relation Name Comments Heart attack Father hypertension Hypertension Mother CA colon, CA br east, thyroid disorder Relation Name Status Comments Father Mother Social History Tobacco Use Types Packs/Day Years Used Date Smoking Tobacco: Never Smokeless Tobacco: Never Alcohol Use Standard Drinks/Week Comments No 0 (1 standard drink = 0.6 oz pur e alcohol) Sex and Gender Information Value Date Recorded Sex Assigned at Not on file Legal Sex Male 8:36 PM EST Gender Identity Not on file Sexual Orientation Not on file Obstetrics History Last Filed Vital Signs Vital Sign Reading Time Taken Comments Blood Pressure 167/106 05/08/2022 10:05 AM EDT R Arm Pulse - - Temperature - - Respiratory Rate - - Oxygen Saturation - - Inhaled Oxygen Concentration - - Weight 110 kg (242 lb) 05/08/2022 10:05 AM EDT Height 180.3 cm (5' 11 ) 05/08/2022 10:05 AM EDT Body Mass Index 33.75 05/08/2022 10:05 AM EDT Plan of Treatment Upcoming Encounters Date Type Department Care Team (Late st Contact Info) Description 06/20/2025 11:00 AM EST Appointment [facility] CT Scan [address] [place] [address] Health Maintenance Due Date Last Done Comments Colorectal Cancer Screening: Colonoscopy 1960 RSV Immunization Adult Patients (1 - Risk 50-74 years 1-dose series) 11/22/2011 Zoster Vaccines (1 of 2) 11/22/2011 Cholesterol Screening (Lipid Panel) 07/18/2022 HIV Screening 07/18/2022 Hepatitis C Screening 07/18/2022 Social Influencers of Health Screening 07/18/2022 Pneumococcal Vaccine: 50+ Years (3 of 3 - PCV20 or PCV21) 07/22/2022 07/22/2017, 06/17/2016 Hypertension/CHF/CAD Annual BMP Blood Test 07/26/2022 Depression Screening 08/16/2024 COVID-19 Vaccine (1 - 2023-2 5 season) 2025 Influenza Vaccine (#1) 2025 DTaP,Tdap,and Td Vaccines (2 - Td or Tdap) 06/17/2026 06/17/2016 HIB Vaccines Aged Out No longer eligi ble based on patient's age to complete this topic HPV Vaccines Aged Out No longer eligi ble based on patient's age to complete this topic Hepatitis A Vaccines Aged Out No long er eligible based on patient's age to complete this topic Hepatitis B Vaccines Aged Out No long er eligible based on patient's age to complete this topic IPV Vaccines Aged Out No longer eligi ble based on patient's age to complete this topic MMR Vaccines Aged Out No longer eligi ble based on patient's age to complete this topic Meningococcal ACWY Vaccine Aged Out N o longer eligible based on patient's age to complete this topic Meningococcal B Vaccine Aged Out No l onger eligible based on patient's age to complete this topic RSV Immunization Patients Under 20 months Aged Out No longer eligible b ased on patient's age to complete this topic Varicella Vaccines Aged Out No longer eligible based on patient's age to complete this topic Insurance [facility] Advance Directives Documents on File Type Date 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
--- OUTSIDE RECORDS SUMMARY | 2025-06-15 13:18 | XMS_ITS | Patient Health Record ---
Author Organization [facility] [address] Address [address] [place] [address] Care Team Providers Care Software Release Engineer Name Role Phone RIAN SHAVER Unavailable [phone] Allergies No Known Allergies Results Component Value Reference Range Notes Comp. Metabolic Panel (14)-[id number] Reviewed date:05/03/2025 08:15:40 AM Interpretation: Performing Lab:[facility], [address] [place] [address], [place], Phone - [phone], Director - Isidro Notes/Report: Glucose 105 70-99 mg/dL BUN 14 8-27 mg/dL Creatinine 1.00 0.76-1.27 mg/dL eGFR 85 >59 mL/min/1.73 BUN/Creatinine Ratio 14 10-24 Sodium 140 134-144 mmol/L Potassium 3.7 3.5-5.2 mmol/L Chloride 101 96-106 mmol/L Carbon Dioxide, Total 23 20-29 mmol/L Calcium 10.2 8.6-10.2 mg/dL Protein, Total 7.7 6.0-8.5 g/dL Albumin 4.5 3.9-4.9 g/dL Globulin, Total 3.2 1.5-4.5 g/dL Bilirubin, Total 0.4 0.0-1.2 mg/dL Alkaline Phosphatase 95 44-121 IU/L Effective April 30, 2025 Alkaline Phosphatase reference interval will be changing to: Age Male Female 0 - 5 days 47 - 127 47 - 127 6 - 10 days 29 - 242 29 - 242 11 - 20 days 109 - 357 109 - 357 21 - 30 days 94 - 494 94 - 494 1 - 2 months 149 - 539 149 - 539 3 - 6 months 131 - 452 131 - 452 7 - 11 months 117 - 401 117 - 401 12 months - 6 years 158 - 369 158 - 369 7 - 12 years 150 - 409 150 - 409 13 years 156 - 435 78 - 227 14 years 114 - 375 64 - 161 15 years 88 - 279 56 - 134 16 years 74 - 207 51 - 121 17 years 63 - 161 47 - 113 18 - 20 years 51 - 125 42 - 106 21 - 50 years 47 - 123 41 - 116 51 - 80 years 49 - 135 51 - 125 >80 years 48 - 129 48 - 129 AST (SGOT) 22 0-40 IU/L ALT (SGPT) 20 0-44 IU/L Lipid Panel-[id number] Reviewed date:05/03/2025 08:15:40 AM Interpretation: Performing Lab:[facility], [address] [place] [address], Phone - [phone], Director - MDJodry Notes/Report: Cholesterol, Total 173 100-199 mg/dL Triglycerides 238 0-149 mg/dL HDL Cholesterol 36 >39 mg/dL VLDL Cholesterol Dale 41 5-40 mg/dL LDL Chol Calc (NIH) 96 0-99 mg/dL Sex Horm Binding Glob, Serum -[id number] Reviewed date:05/03/2025 08:15:40 AM Interpretation: Performing Lab:[facility], [address] [place] [address], Phone - [phone], Director - MDJodry Notes/Report: Sex Horm Binding Glob, Serum 24.4 19.3-76.4 nmol/L Testosterone, Total, LC/MS-0 57718 Reviewed date:05/03/2025 08:15:40 AM Interpretation: Performing Lab:[facility] [address] [place] [address], Phone - [phone], Director - MDJodry Notes/Report: Testosterone, Total, LC/MS 133 This test was developed and its performance characteristics determined by [facility]. It has not been cleared or approved by the Food and Drug Administration. Reference Range: Adult Males >18 years 264 - 916 This [employer] LC/MS-MS method is currently certified by the CDC Hormone Standardization Program (HoST). Adult male reference interval is based on a population of healthy nonobese males (BMI <30) between 19 and 39 years old. Andre et.al. JCEM 2017,102;2141-7237 PMID: [id number]. CBC With Differential/Platel et-[id number] Reviewed date:05/03/2025 08:15:40 AM Interpretation: Performing Lab:[facility], Phone - [phone], Director - MDJodry Notes/Report: WBC 6.2 3.4-10.8 x10E3/uL RBC 4.43 4.14-5.80 x10E6/uL Hemoglobin 13.0 13.0-17.7 g/dL Hematocrit 39.4 37.5-51.0 % MCV 89 79-97 fL MCH 29.3 26.6-33.0 pg MCHC 33.0 31.5-35.7 g/dL RDW 13.3 11.6-15.4 % Platelets 235 150-450 x10E3/uL Neutrophils 52 Not Estab. % Lymphs 34 Not Estab. % Monocytes 7 Not Estab. % Eos 6 Not Estab. % Basos 1 Not Estab. % Neutrophils (Absolute) 3.2 1.4-7.0 x10E3/uL Lymphs (Absolute) 2.1 0.7-3.1 x10E3/uL Monocytes(Absolute) 0.4 0.1-0.9 x10E3/uL Eos (Absolute) 0.4 0.0-0.4 x10E3/uL Baso (Absolute) 0.1 0.0-0.2 x10E3/uL Immature Granulocytes 0 Not Estab. % Immature Grans (Abs) 0.0 0.0-0.1 x10E3/uL [id number] Reviewed date:05/03/2025 08:15:40 AM Interpretation: Performing Lab:[email or web address] [address], Phone - [phone], Director - Jodry Notes/Report: TSH 5.660 0.450-4.500 uIU/mL Urinalysis, Complete-[id number] Reviewed date:05/03/2025 08:15:40 AM Interpretation: Performing Lab:[facility] [address], Phone - [phone], Director - MDJodry Notes/Report: Specific [place] 1.024 1.005-1.030 pH 6.0 5.0-7.5 Urine-Color Yellow Yellow Appearance Clear Clear WBC Esterase Negative Negative Protein Trace Negative/Trace Glucose Negative Negative Ketones Trace Negative Occult Blood Negative Negative Bilirubin Negative Negative Urobilinogen,Semi-Qn 1.0 0.2-1.0 mg/dL Nitrite, Urine Negative Negative Microscopic Examination Micr oscopic follows if indicated. Microscopic Examination See below: Micr oscopic was indicated and was performed. WBC None seen 0 - 5 /hpf RBC 0-2 0 - 2 /hpf Epithelial Cells (non renal) None seen 0 - 10 /hpf Casts None seen None seen /lpf Bacteria None seen None seen/Few Vitamin [id number] Reviewed date:05/03/2025 08:15:40 AM Interpretation: Performing Lab:[facility], [address] [place] [address], Phone - [phone], Director - Isidro Notes/Report: Vitamin B12 307 059-2981 pg/mL Hemoglobin [id number] Reviewed date:05/03/2025 08:15:24 AM Interpretation: Performing Lab:[facility], [address] [place] [address], Phone - [phone], Director - Isidro Notes/Report: Hemoglobin A1c 6.0 4.8-5.6 % . Prediabetes: 5.7 - 6.4 Diabetes: >6.4 Glycemic control for adults with diabetes: <7.0 Comp. Metabolic Panel (14)-3 [id number] Reviewed date:06/27/2024 10:06:21 AM Interpretation: Performing Lab:[facility], [address] [place] [address], Phone - [phone], Director - Isidro Notes/Report: Glucose 119 70-99 mg/dL BUN 16 [...] 0-40 IU/L ALT (SGPT) 28 0-44 IU/L Magnesium-[id number] Reviewed date:06/27/2024 08:23:11 AM Interpretation: Performing Lab:[facility], [address], [place], Phone - [phone], Director - Isidro Notes/Report: Magnesium 1.7 1.6-2.3 mg/dL Reason For Referral No Information Medications Medication SIG (Take, Route, Frequency, Duration) Notes Start Date End Date Status Qulipta 30 MG 1 tablet Orally Once a day; Duration: 30 days 04/06/2024 Active Albuterol Sulfate HFA 108 (9 0 Base) MCG/ACT 2 puff as needed Inhalation every 4 hrs; Duration: 30 days As needed shortness of breath 12/08/2023 Active Testosterone Cypionate 100 MG/ML 1 mL Intramuscular weekly; Duration: 30 days Active Betamethasone Dipropionate 0.05 % 1 application Externally Once a day; Duration: 30 days 04/06/2024 Active Ammonium Lactate 12 % 1 application Externally Twice a day; Duration: 30 days Active Lac-Hydrin Five 5 % 1 application Externally Twice a day; Duration: 30 days Active Losartan Potassium 100 MG TAKE 1 TABLET BY MOUTH EVERY DAY; Duration: 90 Active Lansoprazole 30 MG 1 CAPSULE BEFORE A M EAL Orally twice a day; Duration: 90 days Active Furosemide 20 MG TAKE 1 TABLET BY WALDEMAR TH EVERY DAY FOR 30 DAYS; Duration: 90 Active Lexapro 5 MG 1 tablet Orally Once a day; Duration: 30 days Active Emgality 120 MG/ML as directed Subcutaneous Active amLODIPine Besylate 5 MG TAKE 1 TABLET B Y MOUTH EVERY DAY; Duration: 90 Active hydroCHLOROthiazide 25 MG TAKE 1 TABLET BY MOUTH EVERY DAY IN THE MORNING FOR 90 DAYS; Duration: 90 Active Albuterol Sulfate (2.5 MG/3ML) 0.083% 3 ml as needed Inhalation every 6 hrs; Duration: 30 day(s) 12/16/2021 Active Simvastatin 20 MG TAKE 1 TABLET BY WALDEMAR TH EVERY DAY IN THE EVENING FOR 90 DAYS; Duration: 90 Active Social History Tobacco Use: Social History [...] Status W/U Status Risk Notes Problem Hypothyroidism (86000988) Hypothyroidism, unspecified (E03.9) Active confirmed Problem Testicular hypofunction (495625714) Testicular hypofunction (E29.1) Active confirmed Problem Vitamin D deficiency (43519282) Vitamin D deficiency, unspecified (E55.9) Active confirmed Problem Generalized anxiety disorder (71693335) Generalized anxiety disorder (F41.1) Active confirmed Problem Essential hypertension (06028641) Essential (primary) hypertension (I10) Active confirmed Problem Erectile dysfunction (disorder) (171801087) Other male erectile dysfunction (N52.8) Active confirmed Problem Diabetes mellitus screening (621810819) Encounter for screening for diabetes mellitus (Z13.1) Active confirmed Problem Prediabetes (164667940) Prediabetes (R73.03) Active confirmed Problem Renal cyst (405295569) Renal cyst (N28.1) Active confirmed Problem Hyperlipidaemia (53854177) Hyperlipidemia, unspecified hyperlipidemia type (E78.5) Active confirmed Problem Adult health examination (725659926) Adult general medical exam (Z00.00) Active confirmed Problem Hypothyroidism (40091692) Hypothyroidism, unspecified type (E03.9) Active confirmed Problem Annual health maintenance examination (20976430) Annual physical exam (Z00.00) Active confirmed Problem Insomnia (232803045) Insomnia, unspecified type (G47.00) Active confirmed Problem Dyspnea (386365374) SOB (shortne ss of breath) (R06.02) Active confirmed Problem Vitamin D deficiency (22510512) Vitamin D deficiency (E55.9) Active confirmed Problem Male hypogonadism (72118833) Hypogonadism in male (E29.1) Active confirmed Problem Accelerated essential hypertension (66877288) Accelerated essential hypertension (I10) Active confirmed Problem Diabetes mellitus screening (858006578) Diabetes mellitus screening (Z13.1) Active confirmed Problem COVID-19 (813393678) COVID-19 (U07.1) Active confirmed Problem Agitation (74580665) Agitation (R45.1) Active confirmed Problem Gastroesophageal reflux disease (738609392) Gastroesophageal reflux disease, unspecified whether esophagitis present (K21.9) Active confirmed Problem Eczema (28274658) Eczema, unspecified type (L30.9) Active confirmed Problem Asthenia (01754005) Asthenia (R53.1) Active con firmed Problem Vitamin B>12< deficiency anaemia (45869767) Anemia due to vitamin B12 deficiency, unspecified B12 deficiency type (D51.9) Active confirmed Problem Primary hypertension (28438997) Primary hypertension (I10) Active confirmed Problem Moderate recurrent major depression (38946018) Moderate episode of recurrent major depressive disorder (F33.1) Active confirmed Problem 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) Active confirmed Problem Major depression, single episode (06451957) Current episode of major depressive disorder without prior episode, unspecified depression episode severity (F32.9) Active confirmed Problem Traumatic brain injury with no loss of consciousness (disorder) (330163670) Traumatic brain injury, without loss of consciousness, initial encounter (S06.9X0A) Active confirmed Problem Primary malignant neoplasm of kidney (12498910) Renal cell carcinoma, unspecified laterality (C64.9) Active confirmed Problem Cough (finding) (73395335) Cough, unspecified type (R05.9) Active confirmed Problem Elevated fasting lipid profile (290654170368) Elevated lipids (E78.5) Active confirmed Problem Screening for malignant neoplasm of prostate (397359633) Encounter for prostate cancer screening (Z12.5) Active confirmed Problem Acute hypokalemia (98799661) Acute hypokalemia (E87.6) Active confirmed Vital Signs Heart Rate 61 /min 04/24/2025 Oximetry 94 % 04/24/2025 Blood pressure diastolic 94 mm Hg 04/24/2025 Height 70 in 04/24/2025 Blood pressure systolic 116 mm Hg 04/24/2025 Weight 230.4 lbs 04/24/2025 BMI 33.06 kg/m2 04/24/2025 Encounters Encounter Location Date Provider Diagnosis [facility] [address] [place] [address] 06/26/2024 RIAN SHAVER Traumatic brain inju ry, without loss of consciousness, initial encounter S06.9X0A ; Hypokalemia E87.6 ; Agitation R45.1 ; Essential (primary) hypertension I10 and Current episode of major depressive disorder without prior episode, unspecified depression episode severity F32.[address] [facility] [address] [place] [address] 09/26/2024 RIAN SHAVER Shortness of breath R06.02 ; Annual physical exam Z00.00 ; Essential (primary) hypertension I10 ; Hypogonadism in male E29.1 ; Traumatic brain injury, without loss of consciousness, initial encounter S06.9X0A ; Current episode of major depressive disorder without prior episode, unspecified depression episode severity F32.9 and B12 deficiency E53.[address] [facility] [address] [place] [address] 01/23/2025 RIAN SHAVER Essential (primary) hypertension I10 ; Traumatic brain injury, without loss of consciousness, initial encounter S06.9X0A ; Hypogonadism in male E29.1 ; Current episode of major depressive disorder without prior episode, unspecified depression episode severity F32.9 ; B12 deficiency E53.8 and Encounter for examination of blood pressure without abnormal findings Z01.30 [facility] [address] [place] [address] 04/24/2025 RIAN SHAVER Essential (primary) hypertension I10 ; Traumatic brain injury, without loss of consciousness, initial encounter S06.9X0A ; Hypogonadism in male E29.1 ; Current episode of major depressive disorder without prior episode, unspecified depression episode severity F32.9 ; B12 deficiency E53.8 and Encounter for examination of blood pressure without abnormal findings Z01.[address] [facility] [address] [place] [address] 06/21/2024 RIAN SHAVER [facility] [address] [place] [address] 06/27/2024 RIAN SHAVER [facility] [address] [address] 09/26/2024 RIAN SHAVER [facility] [address] [address] 01/26/2025 RIAN SHAVER [facility] [address] [place] [address] 04/25/2025 RIAN SHAVER [facility] [address] [place] [address] 05/21/2025 RIAN SHAVER Assessments Encounter Date Diagnosis (ICD Code) Assessment Notes Treatment Notes Treatment Clinical Notes Section Notes 06/26/2024 Hypokalemia (ICD-10 - E87.6) # Hypokalemia. [...] Dictation was accomplished with the use of [employer] voice recognition software, prone to medical misidentifications [...] log exercise and discussed fitness Apps like [employer] which can help keep log off calories [...] Dictation was accomplished with the use of [employer] voice recognition software, prone to medical misidentifications [...] log exercise and discussed fitness Apps like [employer] which can help keep log off calories [...] Dictation was accomplished with the use of [employer] voice recognition software, prone to medical misidentifications [...] Dictation was accomplished with the use of [employer] voice recognition software, prone to medical misidentifications [...] Recommend group therapy/support groups. Consider refer to [facility] Case discussed with collaborating physician Dena Toussaint who reviewed the assessment and plan. Chart, medications, labs, vital signs reviewed. Dictation was accomplished with the use of [employer] voice recognition software, prone to medical misidentifications [...] Recommend group therapy/support groups. Consider refer to [facility] Case discussed with collaborating physician Dena Toussaint who reviewed the assessment and plan. Chart, medications, labs, vital signs reviewed. Dictation was accomplished with the use of [employer] voice recognition software, prone to medical misidentifications and grammatical errors. This is unintentional and the practitioner does try to identify and correct these, but some could still be present. Please do not hesitate to contact practitioner for clarification. All questions answered to patients satisfaction. Patient verbalized understanding of diagnosis and treatments explained. To call sooner prior to next visit it any questions/concerns arise. 04/24/2025 Essential (primary) hypertension (ICD-10 - I10) #Hypertension: Compliant with amlodipine and losartan. BP well controlled. Will stop Amlodipine due to low BP. # Testosterone- was previously on Xyosted, but cannot afford. Recheck CBC and testoserone. # TBI. Ongoing issue, reports not getting better. Consider Aricept? Also consider treating depression. Recommend group therapy/support groups. Consider refer to [facility]. Will reach out of Preeti Zarate. Pt hsa been losing balance more. COnsider repeat brain imaging. # Balance issues. Orthostatics overall unremarkbale. No carotid artery bruits. Total time spent with patient was 45 minutes, with over half being [id number] time. Case discussed with collaborating physician Dena Toussaint who reviewed the assessment and plan. Chart, medications, labs, vital signs reviewed. Dictation was accomplished with the use of [employer] voice recognition software, prone to medical misidentifications and grammatical errors. This is unintentional and the practitioner does try to identify and correct these, but some could still be present. Please do not hesitate to contact practitioner for clarification. All questions answered to patients satisfaction. Patient verbalized understanding of diagnosis and treatments explained. To call sooner prior to next visit it any questions/concerns arise. 04/24/2025 Traumatic brain injury, without loss of consciousness, initial encounter (ICD-10 - S06.9X0A) #Hypertension: Compliant with amlodipine and losartan. BP well controlled. Will stop Amlodipine due to low BP. # Testosterone- was previously on Xyosted, but cannot afford. Recheck CBC and testoserone. # TBI. Ongoing issue, reports not getting better. Consider Aricept? Also consider treating depression. Recommend group therapy/support groups. Consider refer to [facility]. Will reach out of [facility]. Pt hsa been losing balance more. COnsider repeat brain imaging. # Balance issues. Orthostatics overall unremarkbale. No carotid artery bruits. Total time spent with patient was 45 minutes, with over half being noqi-[id number]-zyar time. Case discussed with collaborating physician Dena Toussaint who reviewed the assessment and plan. Chart, medications, labs, vital signs reviewed. Dictation was accomplished with the use of [employer]Hub voice recognition software, prone to medical misidentifications and grammatical errors. This is unintentional and the practitioner does try to identify and correct these, but some could still be present. Please do not hesitate to contact practitioner for clarification. All questions answered to patients satisfaction. Patient verbalized understanding of diagnosis and treatments explained. To call sooner prior to next visit it any questions/concerns arise. 04/24/2025 Hypogonadism in male (ICD-10 - E29.1) #Hypertension: Compliant with amlodipine and losartan. BP well controlled. Will stop Amlodipine due to low BP. # Testosterone- was previously on Xyosted, but cannot afford. Recheck CBC and testoserone. # TBI. Ongoing issue, reports not getting better. Consider Aricept? Also consider treating depression. Recommend group therapy/support groups. Consider refer to [facility]. Will reach out of [facility]. Pt hsa been losing balance more. COnsider repeat brain imaging. # Balance issues. Orthostatics overall unremarkbale. No carotid artery bruits. Total time spent with patient was 45 minutes, with over half being [id number]-[id number] time. Case discussed with collaborating physician Dena Toussaint [...] Recommend group therapy/support groups. Consider refer to [facility] Case discussed with collaborating physician Dena Toussaint who reviewed the assessment and plan. Chart, medications, labs, vital signs reviewed. Dictation was accomplished with the use of [employer]Hub voice recognition software, prone to medical misidentifications [...] log exercise and discussed fitness Apps like [employer] which can help keep log off calories [...] Dictation was accomplished with the use of [employer] voice recognition software, prone to medical misidentifications [...] Dictation was accomplished with the use of TextHub voice recognition software, prone to medical misidentifications [...] Dictation was accomplished with the use of [employer]Hub voice recognition software, prone to medical misidentifications [...] log exercise and discussed fitness Apps like [employer] which can help keep log off calories [...] Dictation was accomplished with the use of [employer]Hub voice recognition software, prone to medical misidentifications and grammatical errors. This is unintentional and the practitioner does try to identify and correct these, but some could still be present. Please do not hesitate to contact practitioner for clarification. All questions answered to patients satisfaction. Patient verbalized understanding of diagnosis and treatments explained. To call sooner prior to next visit it any questions/concerns arise. 04/24/2025 Current episode of major depressive disorder without prior episode, unspecified depression episode severity (ICD-10 - F32.9) #Hypertension: Compliant with amlodipine and losartan. BP well controlled. Will stop Amlodipine due to low BP. # Testosterone- was previously on Xyosted, but cannot afford. Recheck CBC and testoserone. # TBI. Ongoing issue, reports not getting better. Consider Aricept? Also consider treating depression. Recommend group therapy/support groups. Consider refer to [facility]. Will reach out of P[facility] Zarate. Pt hsa been losing balance more. COnsider repeat brain imaging. # Balance issues. Orthostatics overall unremarkbale. No carotid artery bruits. Total time spent with patient was 45 minutes, with over half being mabw-[id number]-lvhb time. Case discussed with collaborating physician Dena Toussaint who reviewed the assessment and plan. Chart, medications, labs, vital signs reviewed. Dictation was accomplished with the use of [employer] voice recognition software, prone to medical misidentifications [...] Recommend group therapy/support groups. Consider refer to [facility] Case discussed with collaborating physician Dena Toussaint who reviewed the assessment and plan. Chart, medications, labs, vital signs reviewed. Dictation was accomplished with the use of [employer] voice recognition software, prone to medical misidentifications [...] log exercise and discussed fitness Apps like [employer] which can help keep log off calories [...] Dictation was accomplished with the use of [employer]Hub voice recognition software, prone to medical misidentifications and grammatical errors. This is unintentional and the practitioner does try to identify and correct these, but some could still be present. Please do not hesitate to contact practitioner for clarification. All questions answered to patients satisfaction. Patient verbalized understanding of diagnosis and treatments explained. To call sooner prior to next visit it any questions/concerns arise. 04/24/2025 B12 deficiency (ICD-10 - E53.8) #Hypertension: Compliant with amlodipine and losartan. BP well controlled. Will stop Amlodipine due to low BP. # Testosterone- was previously on Xyosted, but cannot afford. Recheck CBC and testoserone. # TBI. Ongoing issue, reports not getting better. Consider Aricept? Also consider treating depression. Recommend group therapy/support groups. Consider refer to [facility]. Will reach out of [facility]. Pt hsa been losing balance more. COnsider repeat brain imaging. # Balance issues. Orthostatics overall unremarkbale. No carotid artery bruits. Total time spent with patient was 45 minutes, with over half being [id number]-hwqv time. Case discussed with collaborating physician Dena Toussaint [...] Recommend group therapy/support groups. Consider refer to [facility] Case discussed with collaborating physician Dena Toussaint who reviewed the assessment and plan. Chart, medications, labs, vital signs reviewed. Dictation was accomplished with the use of [employer] voice recognition software, prone to medical misidentifications [...] Dictation was accomplished with the use of [employer] voice recognition software, prone to medical misidentifications [...] Recommend group therapy/support groups. Consider refer to [facility] Case discussed with collaborating physician Dena Toussaint who reviewed the assessment and plan. Chart, medications, labs, vital signs reviewed. Dictation was accomplished with the use of [employer] voice recognition software, prone to medical misidentifications [...] log exercise and discussed fitness Apps like [employer] which can help keep log off calories [...] Dictation was accomplished with the use of TextHub voice recognition software, prone to medical misidentifications and grammatical errors. This is unintentional and the practitioner does try to identify and correct these, but some could still be present. Please do not hesitate to contact practitioner for clarification. All questions answered to patients satisfaction. Patient verbalized understanding of diagnosis and treatments explained. To call sooner prior to next visit it any questions/concerns arise. 04/24/2025 Encounter for examination of blood pressure without abnormal findings (ICD-10 - Z01.30) #Hypertension: Compliant with amlodipine and losartan. BP well controlled. Will stop Amlodipine due to low BP. # Testosterone- was previously on Xyosted, but cannot afford. Recheck CBC and testoserone. # TBI. Ongoing issue, reports not getting better. Consider Aricept? Also consider treating depression. Recommend group therapy/support groups. Consider refer to [facility]. Will reach out of [facility]. Pt hsa been losing balance more. COnsider repeat brain imaging. # Balance issues. Orthostatics overall unremarkbale. No carotid artery bruits. Total time spent with patient was 45 minutes, with over half being rzzy-yf-gypw time. Case discussed with collaborating physician Dena Toussaint who reviewed the assessment and plan. Chart, medications, labs, vital signs reviewed. Dictation was accomplished with the use of TextHub voice recognition software, prone to medical misidentifications [...] log exercise and discussed fitness Apps like [employer] which can help keep log off calories [...] Dictation was accomplished with the use of TextHub voice recognition software, prone to medical misidentifications [...] 01/23/2025 Next Appt Details Provider Name:RIAN SHAVER, 06/26/2025 09:30:00 AM, [address], [place], [address], Insurance Providers Payer Name Payer Address Payer Phone Subscriber Number Group Number Insured Name Patient Relationship to Insured Coverage Start Date Coverage End Date [employer] [address] [place] [phone] [id number] [id number] FIELD Self - patient is the [...]
== END 2025-06-19 08:29 | disposition home or self-care (01) ==
LOC: HO.HSMS 11:40
PROVIDERS: PCP Internal Medicine; Visit Provider Nurse Practitioner Family
DX: R41.89 Other symptoms and signs involving cognitive functions and awareness (principal); R41.3 Other amnesia; F07.81 Postconcussional syndrome; S09.90XA Unspecified injury of head, initial encounter; F41.9 Anxiety disorder, unspecified; F43.21 Adjustment disorder with depressed mood; R42 Dizziness and giddiness
CPT/HCPCS: 99214

== ENCOUNTER 2025-06-18 12:10 | Outpatient (REF) | payer OTHER, SELFPAY ==
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
--- OUTSIDE RECORDS SUMMARY | 2024-08-14 09:00 | XMS_ITS ---
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 Annual. * Medical History: Objective: * Vitals: Assessment: Plan: * Treatment: * Images: Billing Information: * Visit Code: * Procedure Codes: Care Plan Details* * Electronic signature of DUYEN SHAVER PA-C on 06/18/2025 at 03:27 PM EST Sign off status: Pending * Provider: Demar SHAVER PA-C Date: Generated for Marichuy argueta/Porfirio/eTransmitting on: 1 08/18/2024 03:27 PM EST
[2025-06-18 12:44] LABS: Blood Urea Nitrogen 14 mg/dL (9-16); Estimated Glomerular Filt Rate > 60
[2025-06-18 13:14] LABS: Prostate Specific Antigen 0.98 ng/mL (<0.05-4.0)
[2025-06-18 13:28] LABS: Folate 8.0 ng/mL (> or = 4.0); Vitamin B12 472 pg/mL (200-900)
--- OUTSIDE RECORDS SUMMARY | 2025-06-18 15:27 | XMS_ITS | Patient Health Record ---
Author Organization [facility] [address] Address [address] [place] [address] Care Team Providers Care Sports Leadership Instructor Name Role Phone RIAN SHAVER Unavailable [phone] Allergies No Known Allergies Results Component Value Reference Range Notes Comp. Metabolic Panel (14)-3 [id number] Reviewed date:05/03/2025 08:15:40 AM Interpretation: Performing Lab:[facility], [address] [place] [address], [place], Phone - [phone], Director - Isidro Notes/Report: Glucose 105 70-99 [...] IU/L ALT (SGPT) 20 0-44 IU/L Lipid Panel-098903 Reviewed date:05/03/2025 08:15:40 AM Interpretation: Performing Lab:[facility], [address] [place] [address], Phone - [phone], Director - MDJodry Notes/Report: Cholesterol, Total 173 100-199 mg/dL Triglycerides 238 0-149 mg/dL HDL Cholesterol 36 >39 mg/dL VLDL Cholesterol Dale 41 5-40 mg/dL LDL Chol Calc (NIH) 96 0-99 mg/dL Sex Horm Binding Glob, Serum -[id number] Reviewed date:05/03/2025 08:15:40 AM Interpretation: Performing Lab:[facility], [address] [place] [address], Phone - [phone], Director - MDJodry Notes/Report: Sex Horm Binding Glob, Serum 24.4 19.3-76.4 nmol/L Testosterone, Total, LC/MS-0 28256 Reviewed date:05/03/2025 08:15:40 AM Interpretation: Performing Lab:[facility] [address] [place] [address], Phone - [phone], Director - MDJodry Notes/Report: Testosterone, Total, LC/MS 133 This test was developed and its performance characteristics determined by [employer]. It has not been cleared or approved by the Food and Drug Administration. Reference Range: Adult Males >18 years 264 - 916 This [employer] LC/MS-MS method is currently certified by the CDC Hormone Standardization Program (HoST). Adult male reference interval is based on a population of healthy nonobese males (BMI <30) between 19 and 39 years old. Andre et.al. JCEM 2017,102;0325-7475 PMID: [id number]. CBC With Differential/Platel et-544106 Reviewed date:05/03/2025 08:15:40 AM Interpretation: Performing Lab:[facility], Phone - [phone], Director - MDJodry Notes/Report: WBC 6.2 3.4-10.8 [...] % Immature Grans (Abs) 0.0 0.0-0.1 x10E3/uL TSH-[id number] Reviewed date:05/03/2025 08:15:40 AM Interpretation: Performing Lab:[facility] [address], Phone - [phone], Director - Jodry Notes/Report: TSH 5.660 0.450-4.500 uIU/mL Urinalysis, Complete-[id number] Reviewed date:05/03/2025 08:15:40 AM Interpretation: Performing Lab:[facility] [address], Phone - [phone], Director - MDJodry Notes/Report: Specific [place] 1.024 1.005-1.030 pH 6.0 5.0-7.5 Urine-Color Yellow [...] /lpf Bacteria None seen None seen/Few Vitamin [id number] Reviewed date:05/03/2025 08:15:40 AM Interpretation: Performing Lab:[facility], [address] [place] [address], Phone - [phone], Director - Isidro Notes/Report: Vitamin B12 396 504-1920 pg/mL Hemoglobin E7y-[id number] Reviewed date:05/03/2025 08:15:24 AM Interpretation: Performing Lab:[facility], [address] [place] [address], Phone - [phone], Director - Isidro Notes/Report: Hemoglobin A1c 6.0 4.8-5.6 % . Prediabetes: 5.7 - 6.4 Diabetes: >6.4 Glycemic control for adults with diabetes: <7.0 Comp. Metabolic Panel (14)-3 72784 Reviewed date:06/27/2024 10:06:21 AM Interpretation: Performing Lab:[facility], [address] [place] [address], Phone - [phone], Director - Isidro Notes/Report: Glucose 119 70-99 [...] 0-40 IU/L ALT (SGPT) 28 0-44 IU/L Magnesium-025969 Reviewed date:06/27/2024 08:23:11 AM Interpretation: Performing Lab:[facility], [address], [place], Phone - [phone], Director - Isidro Notes/Report: Magnesium 1.7 1.6-2.3 [...] twice a day; Duration: 90 days Active Escitalopram Oxalate 5 MG TAKE 1 TABLET BY MOUTH EVERY DAY; Duration: 90 Active Furosemide 20 MG TAKE 1 TABLET BY WALDEMAR TH EVERY DAY FOR 30 DAYS; Duration: 90 Active Emgality 120 MG/ML as directed [...] Status W/U Status Risk Notes Problem Hypothyroidism (61006893) Hypothyroidism, unspecified (E03.9) Active confirmed Problem Testicular hypofunction (267480093) Testicular hypofunction (E29.1) Active confirmed Problem Vitamin D deficiency (48237659) Vitamin D deficiency, unspecified (E55.9) Active confirmed Problem Generalized anxiety disorder (85614084) Generalized anxiety disorder (F41.1) Active confirmed Problem Essential hypertension (99498984) Essential (primary) hypertension (I10) Active confirmed Problem Erectile dysfunction (disorder) (911838070) Other male erectile dysfunction (N52.8) Active confirmed Problem Diabetes mellitus screening (259677021) Encounter for screening for diabetes mellitus (Z13.1) Active confirmed Problem Prediabetes (144227901) Prediabetes (R73.03) Active confirmed Problem Renal cyst (502968892) Renal cyst (N28.1) Active confirmed Problem Hyperlipidaemia (16487334) Hyperlipidemia, unspecified hyperlipidemia type (E78.5) Active confirmed Problem Adult health examination (809413653) Adult general medical exam (Z00.00) Active confirmed Problem Hypothyroidism (00834145) Hypothyroidism, unspecified type (E03.9) Active confirmed Problem Annual health maintenance examination (53870826) Annual physical exam (Z00.00) Active confirmed Problem Insomnia (034778157) Insomnia, unspecified type (G47.00) Active confirmed Problem Dyspnea (820083390) SOB (shortne ss of breath) (R06.02) Active confirmed Problem Vitamin D deficiency (87559969) Vitamin D deficiency (E55.9) Active confirmed Problem Male hypogonadism (67802890) Hypogonadism in male (E29.1) Active confirmed Problem Accelerated essential hypertension (42993934) Accelerated essential hypertension (I10) Active confirmed Problem Diabetes mellitus screening (048077205) Diabetes mellitus screening (Z13.1) Active confirmed Problem COVID-19 (950732348) COVID-19 (U07.1) Active confirmed Problem Agitation (56721503) Agitation (R45.1) Active confirmed Problem Gastroesophageal reflux disease (971665319) Gastroesophageal reflux disease, unspecified whether esophagitis present (K21.9) Active confirmed Problem Eczema (04596854) Eczema, unspecified type (L30.9) Active confirmed Problem Asthenia (30493400) Asthenia (R53.1) Active con firmed Problem Vitamin B>12< deficiency anaemia (54534048) Anemia due to vitamin B12 deficiency, unspecified B12 deficiency type (D51.9) Active confirmed Problem Primary hypertension (43658915) Primary hypertension (I10) Active confirmed Problem Moderate recurrent major depression (37612910) Moderate episode of recurrent major depressive disorder (F33.1) Active confirmed Problem 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) Active confirmed Problem Major depression, single episode (06081593) Current episode of major depressive disorder without prior episode, unspecified depression episode severity (F32.9) Active confirmed Problem Traumatic brain injury with no loss of consciousness (disorder) (437175065) Traumatic brain injury, without loss of consciousness, initial encounter (S06.9X0A) Active confirmed Problem Primary malignant neoplasm of kidney (66309342) Renal cell carcinoma, unspecified laterality (C64.9) Active confirmed Problem Cough (finding) (01847141) Cough, unspecified type (R05.9) Active confirmed Problem Elevated fasting lipid profile (205855892070) Elevated lipids (E78.5) Active confirmed Problem Screening for malignant neoplasm of prostate (969462709) Encounter for prostate cancer screening (Z12.5) Active confirmed Problem Acute hypokalemia (39498295) Acute hypokalemia (E87.6) Active confirmed Vital Signs Heart Rate 61 /min 04/24/2025 Oximetry 94 % 04/24/2025 Blood pressure diastolic 94 mm Hg 04/24/2025 Height 70 in 04/24/2025 Blood pressure systolic 116 mm Hg 04/24/2025 Weight 230.4 lbs 04/24/2025 BMI 33.06 kg/m2 04/24/2025 Encounters Encounter Location Date Provider Diagnosis [facility] [address] [place] [address] 06/26/2024 RIAN SHAVER Traumatic brain inju ry, without loss of consciousness, initial encounter S06.9X0A ; Hypokalemia E87.6 ; Agitation R45.1 ; Essential (primary) hypertension I10 and Current episode of major depressive disorder without prior episode, unspecified depression episode severity F32.[address] [facility] [address] [place], [place] 09/26/2024 RIAN SHAVER Shortness of breath R06.02 ; Annual physical exam Z00.00 ; Essential (primary) hypertension I10 ; Hypogonadism in male E29.1 ; Traumatic brain injury, without loss of consciousness, initial encounter S06.9X0A ; Current episode of major depressive disorder without prior episode, unspecified depression episode severity F32.9 and B12 deficiency E53.[address] [facility] [address] [place] [address] 01/23/2025 RIAN SHAVER Essential (primary) hypertension I10 ; Traumatic brain injury, without loss of consciousness, initial encounter S06.9X0A ; Hypogonadism in male E29.1 ; Current episode of major depressive disorder without prior episode, unspecified depression episode severity F32.9 ; B12 deficiency E53.8 and Encounter for examination of blood pressure without abnormal findings Z01.[address] [facility] [place], [place] 04/24/2025 RIAN SHAVER Essential (primary) hypertension I10 ; Traumatic brain injury, without loss of consciousness, initial encounter S06.9X0A ; Hypogonadism in male E29.1 ; Current episode of major depressive disorder without prior episode, unspecified depression episode severity F32.9 ; B12 deficiency E53.8 and Encounter for examination of blood pressure without abnormal findings Z01.30 [facility] [address] [place] [address] 06/18/2025 RIAN SHAVER [facility] [address] [place] [address] 06/21/2024 RIAN SHAVER [facility] [address] [place] [address] 06/27/2024 RIAN SHAVER [facility] [address] [facility] [address] [place] [address] 09/26/2024 RIAN SHAVER [facility] [address] [facility] [address] [place] [address] 01/26/2025 RIAN SHAVER [facility] [address] [place] [address] 04/25/2025 RIAN SHAVER [facility] [address] [place] [address] 05/21/2025 RIAN SHAVER Assessments Encounter Date Diagnosis [...] Dictation was accomplished with the use of Pingboard voice recognition software, prone to medical misidentifications [...] log exercise and discussed fitness Apps like [employer] which can help keep log off calories [...] Dictation was accomplished with the use of Ping[employer] voice recognition software, prone to medical misidentifications [...] log exercise and discussed fitness Apps like [employer] which can help keep log off calories [...] Dictation was accomplished with the use of Ping[employer] voice recognition software, prone to medical misidentifications [...] Dictation was accomplished with the use of [employer] voice recognition software, prone to medical misidentifications [...] Recommend group therapy/support groups. Consider refer to [facility] Case discussed with collaborating physician Dena Toussaint who reviewed the assessment and plan. Chart, medications, labs, vital signs reviewed. Dictation was accomplished with the use of Ping[employer] voice recognition software, prone to medical misidentifications [...] Recommend group therapy/support groups. Consider refer to [facility] Case discussed with collaborating physician Dena oTussaint who reviewed the assessment and plan. Chart, medications, labs, vital signs reviewed. Dictation was accomplished with the use of Ping[employer] voice recognition software, prone to medical misidentifications [...] Recommend group therapy/support groups. [facility]. Will reach out of [facility]. Pt hsa been losing balance more. COnsider repeat brain imaging. # Balance issues. Orthostatics overall unremarkbale. No carotid artery bruits. Total time spent with patient was 45 minutes, with over half being kivz-ap-libv time. Case discussed with collaborating physician Dena Toussaint who reviewed the assessment and plan. Chart, medications, labs, vital signs reviewed. Dictation was accomplished with the use of Pingboard voice recognition software, prone to medical misidentifications [...] Recommend group therapy/support groups. Consider refer to [facility]. Will reach out of [facility]. Pt hsa been losing balance more. COnsider repeat brain imaging. # Balance issues. Orthostatics overall unremarkbale. No carotid artery bruits. Total time spent with patient was 45 minutes, with over half being izpx-js-wycr time. Case discussed with collaborating physician Dena Toussaint who reviewed the assessment and plan. Chart, medications, labs, vital signs reviewed. Dictation was accomplished with the use of Pingboard voice recognition software, prone to medical misidentifications [...] Recommend group therapy/support groups. Consider refer to [facility]. Will reach out of [facility]. Pt hsa been losing balance more. COnsider repeat brain imaging. # Balance issues. Orthostatics overall unremarkbale. No carotid artery bruits. Total time spent with patient was 45 minutes, with over half being soft-ba-tqla time. Case discussed with collaborating physician Dena [...] Recommend group therapy/support groups. Consider refer to [facility] Case discussed with collaborating physician [...] log exercise and discussed fitness Apps like [employer] which can help keep log off calories [...] Dictation was accomplished with the use of Pingboard voice recognition software, prone to medical misidentifications [...] Dictation was accomplished with the use of Pingboard voice recognition software, prone to medical misidentifications [...] Dictation was accomplished with the use of Pingboard voice recognition software, prone to medical misidentifications [...] log exercise and discussed fitness Apps like [employer] which can help keep log off calories [...] Dictation was accomplished with the use of Pingboard voice recognition software, prone to medical misidentifications [...] Recommend group therapy/support groups. Consider refer [facility]. Will reach out of [facility]. Pt hsa been losing balance more. COnsider repeat brain imaging. # Balance issues. Orthostatics overall unremarkbale. No carotid artery bruits. Total time spent with patient was 45 minutes, with over half being trnv-xj-vaay time. Case discussed with collaborating physician Dena Toussaint who reviewed the assessment and plan. Chart, medications, labs, vital signs reviewed. Dictation was accomplished with the use of Pingboard voice recognition software, prone to medical misidentifications [...] Recommend group therapy/support groups. Consider refer to [facility] Case discussed with collaborating physician Dena Toussaint who reviewed the assessment and plan. Chart, medications, labs, vital signs reviewed. Dictation was accomplished with the use of Pingboard voice recognition software, prone to medical misidentifications [...] log exercise and discussed fitness Apps like [employer] which can help keep log off calories [...] Dictation was accomplished with the use of Pingboard voice recognition software, prone to medical misidentifications [...] Recommend group therapy/support groups. Consider refer to [facility]. Will reach out of [facility]. Pt hsa been losing balance more. COnsider repeat brain imaging. # Balance issues. Orthostatics overall unremarkbale. No carotid artery bruits. Total time spent with patient was 45 minutes, with over half being dgsd-ym-ecbr time. Case discussed with collaborating physician Dena [...] Recommend group therapy/support groups. Consider refer to [facility] Case discussed with collaborating physician Dena Toussaint who reviewed the assessment and plan. Chart, medications, labs, vital signs reviewed. Dictation was accomplished with the use of Pingboard voice recognition software, prone to medical misidentifications [...] Dictation was accomplished with the use of [employer] voice recognition software, prone to medical misidentifications [...] Recommend group therapy/support groups. Consider refer to [facility] Case discussed with collaborating physician Dena Toussaint who reviewed the assessment and plan. Chart, medications, labs, vital signs reviewed. Dictation was accomplished with the use of Pingboard voice recognition software, prone to medical misidentifications [...] log exercise and discussed fitness Apps like [employer] which can help keep log off calories [...] Dictation was accomplished with the use of Pingboard voice recognition software, prone to medical misidentifications [...] Recommend group therapy/support groups. Consider refer to [facility]. Will reach out of [facility]. Pt hsa been losing balance more. COnsider repeat brain imaging. # Balance issues. Orthostatics overall unremarkbale. No carotid artery bruits. Total time spent with patient was 45 minutes, with over half being tduq-ko-qvdx time. Case discussed with collaborating physician Dena Toussaint who reviewed the assessment and plan. Chart, medications, labs, vital signs reviewed. Dictation was accomplished with the use of Pingboard voice recognition software, prone to medical misidentifications [...] log exercise and discussed fitness Apps like [employer] which can help keep log off calories [...] Dictation was accomplished with the use of Pingboard voice recognition software, prone to medical misidentifications [...] Globulin 01/23/2025 Next Appt Details Provider Name:RIAN CHHAYA, 06/26/2025 09:30:00 AM, [address], [place], [address], Insurance Providers Payer Name Payer Address Payer Phone Subscriber Number Group Number Insured Name Patient Relationship to Insured Coverage Start Date Coverage End Date [employer] [address] [place] [id number] [id number] AMNA FIELD Self - patient is [...]
--- OUTSIDE RECORDS SUMMARY | 2025-06-18 15:28 | XMS_ITS | Clinical Summary ---
Author Organization [facility] Address [address] [place] [address] Phone Care Team Providers Care Nutritionist Public Health Name Role Phone Cas Toussaint MD Primary Care Provider [phone] Medical History Medical History Date Comments Allergic [...] Info) Description 06/20/2025 11:00 AM EST Appointment [facility] CT Scan [address] [place] [address] Health Maintenance Due Date Last [...] patient's age to complete this topic Insurance [facility] Advance Directives Documents on File Type Date Recorded Patient Ux Lead Expl anation Health Care Decision (hx) 05/18/2022 AD KUMAR DIRECTIVE Health Care Decision (hx) 05/18/2022 AD KUMAR DIRECTIVE Health Care Decision (hx) 05/18/2022 AD KUMAR DIRECTIVE Health Care Decision (hx) 05/18/2022 AD KUMAR DIRECTIVE Health Care Decision (hx) 05/18/2022 AD KUMAR DIRECTIVE Care Teams Nutritionist Public Health Relationship Specialty Start Date End Date Cas Toussaint MD [address] [place] [phone] PCP - General Internal Medicine 04/30/22
[2025-06-23 14:59] LABS: Vitamin D 25-OH, D2 <4 ng/mL; Vitamin D 25-OH, D3 26 ng/mL; Vitamin D 25-OH, Total 26 ng/mL (30-100)
== END 2025-06-18 12:11 | disposition home or self-care (01) ==
LOC: HO.LAB 12:10
PROVIDERS: Absent Provider Nurse Practitioner Family; PCP Internal Medicine; Visit Provider Physician Assistant Medical
DX: E53.8 Deficiency of other specified B group vitamins (principal); C64.9 Malignant neoplasm of unspecified kidney, except renal pelvis; N40.0 Benign prostatic hyperplasia without lower urinary tract symptoms; Z86.39 Personal history of other endocrine, nutritional and metabolic disease; Z12.5 Encounter for screening for malignant neoplasm of prostate; E55.9 Vitamin D deficiency, unspecified; F41.9 Anxiety disorder, unspecified; I10 Essential (primary) hypertension; F09 Unspecified mental disorder due to known physiological condition
CPT/HCPCS: 36415; 82306; 82565; 82607; 82746; 83090; 83921; 84153; 84443; 84520

== ENCOUNTER 2025-07-27 09:17 | Outpatient (AMB) | payer OTHER, SELFPAY ==
[2025-07-27 09:39] VITALS: BP 100/78; PULSE 71; O2SAT 96; BMI 28.2
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
== END 2025-07-27 11:01 | disposition home or self-care (01) ==
LOC: HO.HSMS 09:17
PROVIDERS: PCP Internal Medicine; Visit Provider Nurse Practitioner Family
DX: R41.89 Other symptoms and signs involving cognitive functions and awareness (principal); R41.3 Other amnesia; F07.81 Postconcussional syndrome; F32.A Depression, unspecified; S09.90XA Unspecified injury of head, initial encounter; F41.9 Anxiety disorder, unspecified; F43.21 Adjustment disorder with depressed mood; R42 Dizziness and giddiness
CPT/HCPCS: 99214

== ENCOUNTER → 2025-07-27 09:17 | Outpatient (BNVA) | payer OTHER, SELFPAY | PROVIDERS: PCP Internal Medicine; Visit Provider Nurse Practitioner Family | DX: F09 Unspecified mental disorder due to known physiological condition (principal); R41.3 Other amnesia; F07.81 Postconcussional syndrome; F32.A Depression, unspecified; S09.90XA Unspecified injury of head, initial encounter; X58.XXXA Exposure to other specified factors, initial encounter; Y93.9 Activity, unspecified; Y92.9 Unspecified place or not applicable; Y99.9 Unspecified external cause status; F41.9 Anxiety disorder, unspecified; F43.21 Adjustment disorder with depressed mood; R42 Dizziness and giddiness | CPT/HCPCS: 99212 ==

== ENCOUNTER 2025-07-28 12:45 | Outpatient (REF) | payer OTHER, SELFPAY ==
--- OUTSIDE RECORDS SUMMARY | 2024-08-14 09:00 | XMS_ITS ---
Author Organization [facility] [address] [address] Address [address] [place] [address] Care Team Providers Care Varnisher Name Role Phone CHHAYA RIAN Unavailable [phone] REASON FOR VISIT annual Encounters Encounter Location Date Provider Diagnosis [facility] [address] [place] [address] 08/14/2024 RIAN SHAVER Plan Of Treatment Next Appt Details Provider Name:RIAN SHAVER, 10/04/2025 10:00:00 AM, [address], [place], [address], Progress Notes * AMNA FIELDDOB:[birth year] (64 yo M)Acc No.[id number]:08/14/2024 CPE Patient: AMNA SOSA Provider: Demar SHAVER PA-C :1960 A ge:63 Y S ex:Male Date:08/14/2024 Address:[address] [place], [place] [id number] Subjective: * Chief Complaints: * A nnual Care Plan Details* * Electronic signature of DUYEN SHAVER PA-C on 07/28/2025 at 12:48 PM EST Sign off status: Pending * Provider: Demar SHAVER PA-C Date: Generated for Printi ng/Faxing/eTransmitting on: 09/28/2024 12:48 PM EST
--- OUTSIDE RECORDS SUMMARY | 2025-06-06 06:25 | XMS_ITS | Continuity of Care Document ---
Author Organization [facility] Address [address] [address] Phone Care Team Providers Care Hand Etcher Name Role Phone Ada Rossi MD Unavailable Unavailable Allergies, Adverse Reactions, Alerts Substance Reaction Status Criticality hydrochlorothiazide body tingling Active No Info rmation Medications Medication Instructions Dosage Effective Dates (start - stop) Status Comments CARVEDILOL 25 MG TAB TAKE ONE TABLET BY MOUTH TWICE A DAY WITH FOOD - Active LOSARTAN 100 MG TAB[*] TAKE ONE TABLET BY MOUTH ONE TIME DAILY - Active AMLODIPINE 10 MG TAB TAKE ONE TABLET BY MOUTH ONE TIME DAILY - Active ELIQUIS 5 MG TAB[$] TAKE ONE TABLET BY MOUTH TWICE A DAY - Active atorvastatin 40 mg tablet take 1 tablet by oral route every day 40 MG - Active chlorhexidine gluconate 0.12 % mouthwash place 15 milliliter by mucous membrane route 2 times every day in the mouth (after meals), swish in mouth for 30 seconds then spit out 15.00 milliliter - Active melatonin 10 mg tablet take 1 tablet by oral route every bedtime for Insomnia 1 tablet - Active Flomax 0.4 mg capsule take 1 capsule by oral route every day 0.4 MG - Active CARVEDILOL 25 MG TAB[*] TAKE ONE TABLET BY MOUTH TWICE A DAY WITH FOOD - No Longer Active Procedures Procedure Date Office o/p est mod 30-39 min Retinal Exam w/o Retinopathy Determ Refractive State Ophth Serv Med Exam Comp Est Preven Meds E&m Estab Pt; 40-6 25 Rad Exam; Clav Complt Ecg-routine 12 Lead; W/intrpt 5 Office o/p est mod 30-39 min Office o/p est mod 30-39 min Immuniz Admin; 1/combo Vacc/to 24 Shingrix Office o/p est mod 30-39 min Office o/p est mod 30-39 min Determ Refractive State Ophth Serv Med Exam Comp New Office o/p est mod 30-39 min Office o/p est low 20-29 min Ecg-routine 12 Lead; W/intrpt 2 ext ecg>7d<15d recording Office o/p est mod 30-39 min Ecg-routine 12 Lead; W/intrpt 2 Office o/p est mod 30-39 min Office o/p est mod 30-39 min Arthrocentesis/aspir/inj; Adrianna 21 Triamcinolone Acetonide Per Per 10Mg Jul Triamcinolone Acetonide Per Per 10Mg Jul Arthrocentesis/aspir/inj; Adrianna 21 ADM Pfizer 30MCG/0.3ML 2ND Pfizer COVID 19 Vaccin sarscov2 vac 30mc g/0.3ml im ADM Pfizer 30MCG/0.3ML 1ST Pfizer COVID 19 Vaccin sarscov2 vac 30mc g/0.3ml im Office o/p est low 20-29 min Office o/p est mod 30-39 min Offic/outpt E&m Estab Mod-nh 2 20 Offic/outpt E&m Estab Mod-nh 2 19 Offic/outpt E&m Estab Mod-nh 2 19 Offic/outpt E&m Estab [facility] 19 Triamcinolone Acetonide Per Per 10Mg Oct Arthrocentesis/aspir/inj; Adrianna 19 Offic/outpt E&m Estab Mod-nh 2 19 Offic/outpt [facility] Offic/outpt E&m Estab Mod-nh 2 19 Offic/outpt E&m Estab 5 Min Offic/outpt E&m Estab 5 Min Offic/outpt E&m Estab [facility] 19 Offic/outpt E&m Estab [facility] 2 18 Offic/outpt [facility] Offic/outpt E&m [facility] Offic/outpt E&m Estab Mod-nh 2 18 Offic/outpt E&m Estab [facility] 2 17 Offic/outpt E&m Estab [facility] 2 17 Echo Retroperiton B-scan; Comp 16 Offic/outpt E&m Estab [facility] 2 16 Offic/outpt E&m Estab [facility] 2 16 Rad Exam Chest 2 Views Front & 16 Rad Exam Chest 2 Views Front & 16 Offic/outpt E&m Estab [facility] 6 Noninvas Oximetry-o2 Sat; 1 De 16 Rad Exam Chest 2 Views Front & 16 Noninvas Oximetry-o2 Sat; 1 De 16 Nonpress Inhala Tx Acute Airwa 16 Duoneb: Albuteral/Ipratropium [place] Up To 0.5mg IV Hydration 31 Min To One Hour 016 NS 500 ml = 1 Unit Offic/outpt E&m Estab Mod-hi 2 16 NS 500 ml = 1 Unit Offic/outpt E&m Estab Low-mod 5 Offic/outpt E&m Estab Mod-hi 2 15 Preven Meds E&m Estab Pt; 40-6 15 Ophth Serv Exam-eval Interme Offic/outpt E&m Estab Mod-hi 2 14 Immuniz Admin; 1/combo Vacc/to 14 Pneumococcal Polysacch Vac-erlinda 14 Immuniz Admin; 2/> Sing/comb V 14 TDAP VACCINE >7 IM Rad Exam Knee; Both Standing A 10 Rad Exam Knee; One/two Views Cv Stress Tst W/pharm; Intrpt 7 Advance Directives Directive Yes / No Effective Date File Name No Information Encounters Encounter Description Practice Location Reason(s) For Visit Diagnoses Date Provider Providers Copied on Encounter [address], [facility], tel:[phone] [facility] No Information 5 Flo Caballero. [address], [id number], [place]. tel:[phone], [facility], [place] tel:[phone] [facility] No Information 5 Flo Caballero. [address], [id number], [place]. tel:[phone] Office o/p est mod 30-[address], [address], [place] tel:[phone] [facility] Diabetes/HTN (chief complaint) Arthritis due to other bacteria, right kneeArthriti s due to other bacteria, left kneeErectile dysfunction associated with type 2 diabetes mellitusErec tile dysfunction due to diseases classified elsewhereHyp erlipidemia, unspecifiedH ypertension associated with diabetesHype rtension secondary to endocrine disordersHyp ertrophic cardiomyopat hyGingival hypertrophyB justino mass index [BMI] 36.0-36.9, adult 5 Flo Caballero. [address], [id number], . tel:[phone] Referring Provider: Ada Hernandez, [address], [address]. tel:[phone], [facility], [place] tel:[phone] [facility] blurry vision (chief complaint) Type 2 diabetes mellitus without complication Racheal-related nuclear cataract, bilateral 5 Jac Disla. [facility], [address] [place] [address], [id number], [place]. tel:[phone] Referring Provider: Tony Wright, [address], [address]. tel:[phone] Preven Meds E&m Estab Pt; 40-[address], [facility], [place] tel:[phone] [facility] preventive exam (chief complaint) Encounter for general adult medical examination without abnormal findingsAcut e renal failure, unspecified acute renal failure typeHx of prostatic malignancyHy perlipidemia associated with type 2 diabetes mellitusHype rlipidemia, unspecifiedH ypertension associated with diabetesHype rtension secondary to endocrine disordersHyp ertrophic cardiomyopat hyOSA on CPAPBody mass index [BMI] 36.0-36.9, adult 5 Flo Caballero. [address], [id number], [place]. tel:[phone] Referring Provider: Ada Hernandez, [address], [address]. tel:[phone] [facility], [address] [place] [address], [address], [place] tel:[phone] [facility] Type 2 diabetes mellitus without complication sRoutine lab draw 5 Flo Caballero. [facility], [address] [place] [address], [id number], [place]. tel:[phone] [facility], [address] [place] [address], [address], [place] tel:[phone] [facility] No Information 5 Flo Caballero. [facility], [address] [place] [address], [id number], [place]. tel:[phone], [address], [place] tel:[phone] [facility] Hyperlipidem ia associated with type 2 diabetes mellitus 5 Flo Caballero. [facility], [address] [place] [address], [id number], [place]. tel:[phone] [facility], [address] [place] [address], [address], [place] tel:[phone] [facility] No Information 5 Stacy Sierra. [facility], [address] [place] [address], [id number], [place]. tel:[phone] Referring Provider: Ada Hernandez, [address], [address]. tel:[phone] Office o/p est mod 30-[address], [address], [place] tel:[phone] [facility] arm pain (chief complaint) Chronic left shoulder painOther chronic painHyperlip idemia associated with type 2 diabetes mellitusHype rlipidemia, unspecifiedH ypertension associated with diabetesHype rtension secondary to endocrine disordersHx of prostatic malignancyHy pertrophic cardiomyopat hyOSA on CPAPBody mass index [BMI] 38.0-38.9, adult Aug- 5 Flo Caballero. [address], [id number], [place]. tel:[phone] Referring Provider: Ada Hernandez, [address], [address]. tel:[phone], [address], [place] tel:[phone] [facility] No Information 4 Flo Caballero. [address], [id number], [place]. tel:[phone] Office o/p est mod 30-[address], [address], [place] tel:[phone] [facility] diabetes - established (chief complaint)Pr ostate Cancer (chief complaint)hy pertension (chief complaint) Hyperlipidem ia associated with type 2 diabetes mellitusHype rlipidemia, unspecifiedE rectile dysfunction due to diseases classified elsewhereHyp ertension associated with diabetesHype rtension secondary to endocrine disordersOSA on CPAPTobacco consumptionH istory of prostate cancerBody mass index [BMI] 38.0-38.9, adult Apr- 4 Flo Caballero. [address], [id number], [place]. tel:[phone] Referring Provider: Ada Hernandez, [address], [address]. tel:[phone], [address], [place] tel:[phone] [facility] Type 2 diabetes mellitus without complication s 4 Flo Caballero. [facility], [address] [place] [address], [id number], [place]. tel:[phone] Office o/p est mod 30-39 min [facility], [address] [place] [address], [address], [place] tel:[phone] [facility] diabetes - established (chief complaint)hy pertension (chief complaint) Cancer of prostate with low recurrence risk (stage T1-2a and Ione < 7 and PSA < 10)Hyperlipi demia associated with type 2 diabetes mellitusHype rlipidemia, unspecifiedH ypertension associated with diabetesHype rtension secondary to endocrine disordersOSA on CPAPTobacco consumptionH x of prostatic malignancyGi ngival swellingBody mass index [BMI] 39.0-39.9, adult Oct- 4 Flo Caballero. [facility], [address] [place] [address], [id number], [place]. tel:[phone] Referring Provider: Ada Rossi MD R, [address], [address]. tel:[phone] [facility], [address] [place] [address], [address], [place] tel:[phone] [facility] Hypertension associated with diabetes 4 Flo Caballero. [facility], [address] [place] [address], [id number], [place]. tel:[phone] Office o/p est mod 30-[address], [address], [place] tel:[phone] [facility] diabetes - established (chief complaint) Erectile dysfunction associated with type 2 diabetes mellitusErec tile dysfunction due to diseases classified elsewhereOSA on CPAPNephrosi s in diabetes mellitusHype rtension associated with diabetesHype rtension secondary to endocrine disordersTob acco consumptionH x of prostatic malignancyBo dy mass index [BMI] 39.0-39.9, adult 3 Flo Caballero. [facility], [address] [place] [address], [id number], [place]. tel:[phone] Referring Provider: Ada Rossi MD R, [address], [address]. tel:[phone] [facility], [address] [place] [address], [address], [place] tel:[phone] [facility] Type 2 diabetes mellitus with other diabetic kidney complication Routine lab draw 3 Flo Caballero. [facility], [address] [place] [address], [id number], [place]. tel:[phone], [address], [place] tel:[phone] [facility] (chief complaint) Type 2 diabetes mellitus without complication sPresbyopiaA ge-related nuclear cataract, bilateral Sep-2 3 Jac Disla. [facility], [address] [place] [address], [id number], [place]. tel:[phone] Referring Provider: Tony Wilhelm OD M, [address], [address]. tel:[phone] Office o/p est mod 30-[address], [address], [place] tel:[phone] [facility] Diabetes/HTN (chief complaint)ot her (chief complaint) Hyperlipidem ia associated with type 2 diabetes mellitusHype rlipidemia, unspecifiedT obacco consumptionC ancer of prostate with low recurrence risk (stage T1-2a and Maria Isabel < 7 and PSA < 10)Typical atrial flutterChron ic anticoagulat ionHypertrop hic cardiomyopat hyBody mass index [BMI] 38.0-38.9, adult Mar-0 3 Flo Caballero. [facility], [address] [place] [address], [id number], [place]. tel:[phone] Referring Provider: Aad Hernandez, [address], [address]. tel:[phone], [address], [place] tel:[phone] [facility] Hyperlipidem ia associated with type 2 diabetes mellitus 3 Flo Caballero. [address], [id number], [place]. tel:[phone], [address], [place] tel:[phone] [facility] No Information 2 Flo Caballero. [address], [id number], [place]. tel:[phone] Office o/p est low 20-[address], [address], [place] tel:[phone] [facility] pre op physical (chief complaint) Typical atrial flutterOSA on CPAPDependen ce on other enabling machines and devicesTobac co consumptionT ype 2 diabetes mellitus with other specified complication , without long-term current use of insulinHyper tension associated with diabetesHype rtension secondary to endocrine disordersBod y mass index [BMI] 40.0-44.9, [facility] other preprocedura l examination 2 Flo Caballero. [address], [id number], [place]. tel:[phone] Referring Provider: Ada Hernandez, [address], [address]. tel:[phone], [address], [place] tel:[phone] Primary Care [facility] nurse visit (chief complaint) Unspecified atrial flutter 2 Flo Caballero. [facility], [address] [place] [address], [id number], [place]. tel:[phone] Referring Provider: Ada Hernandez, [address], [address]. tel:[phone] lting Provider: Infusion Nurse, [address] [place] [address], [address]. [facility], [address] [place] [address], [address], [place] tel:[phone] [facility] Atrial flutter, unspecified type 2 Flo Caballero. [facility], [address] [place] [address], [id number], [place]. tel:[phone] [facility], [address] [place] [address], [address], [place] tel:[phone] [facility] Atrial flutter, unspecified type 2 Flo Caballero. [facility], [address] [place] [address], [id number], [place]. tel:[phone] Office o/p est mod 30-39 min [facility], [address] [place] [address], [address], [place] tel:[phone] Urgent Care Palpitations (chief complaint) Abnormal EKGPalpitati ons 2 Keaton Garrett. [facility], [address] [place] [address], [id number], [place]. tel:[phone] Referring Provider: Ada Hernandez, [address], [address]. tel:[phone] Office o/p est mod 30-39 min [facility], [address] [place] [address], [address], [place] tel:[phone] [facility] hypertension (chief complaint)di abetes - established (chief complaint) Pain, joint, knee, rightHx of prostatic malignancyTy pe 2 diabetes mellitus with diabetic macular edema, resolved following treatment, unspecified eyeObstructi ve sleep apnea (adult) (pediatric)E ssential (primary) hypertension Other specified diabetes mellitus with diabetic nephropathyB justino mass index [BMI] 40.0-44.9, adult Sep-2 2 Flo Caballero. [facility], [address] [place] [address], [id number], . tel:[phone] Referring Provider: Ada Rossi MD R, [address], [address]. tel:[phone], [facility], tel:[phone] [facility] No Information Sep- 2 Flo Caballero. [address], [id number], . tel:[phone] [facility], [address] [place] [address], [facility], [place] tel:[phone] [facility] Hyperlipidem ia associated with type 2 diabetes mellitus Sep-0 2 Flo Caballero. [facility], [address] [place] [address], [id number], [place]. tel:[phone] Office o/p est mod 30-[address], [facility], tel:[phone] [facility] rash (chief complaint)co ugh (chief complaint)Di abetes/HTN (chief complaint)mu sculoskeleta l pain (chief complaint) Hyperlipidem ia associated with type 2 diabetes mellitusHype rlipidemia, unspecifiedH ypertension associated with diabetesHype rtension secondary to endocrine disordersOSA on CPAPDependen ce on other enabling machines and devicesTobac co consumptionC ancer of prostate with low recurrence risk (stage T1-2a and Ione < 7 and PSA < 10)Arthritis of both kneesBody mass index [BMI] 40.0-44.9, adult Dec- 1 Flo Caballero. [facility], [address] [place] [address], [id number], [place]. tel:[phone] Referring Provider: Ada Hernandez, [address], [address]. tel:[phone] [facility], [address] [place] [address], [address], [place] tel:[phone] [facility] Type 2 diabetes mellitus without complication s 1 Flo Caballero. [facility], [address] [place] [address], [id number], [place]. tel:[phone] [facility], [address] [place] [address], [address], [place] tel:[phone] [facility] No Information 1 Flo Caballero. [facility], [address] [place] [address], [id number], [place]. tel:[phone] Referring Provider: Ada Hernandez, [address], [address]. tel:[phone] lting Provider: Flo Noonan, [address], [address]. [facility], [address] [place] [address], [address], [place] tel:[phone] [facility] No Information Oct-0 1 Jose Webber. [facility], [address] [place] [address], [id number], [place]. tel:[phone] Referring Provider: Ada Hernandez, [address], [address]. tel:[phone] lting Provider: Jose Noonan, [address], [address]. Office o/p est low 20-29 min [address] [place], [address], [place] tel:[phone] [facility] prostate cancer (chief complaint) Cancer of prostate with low recurrence risk (stage T1-2a and Ione < 7 and PSA < 10)Body mass index [BMI]40.0-44 .9, adult Mar-0 3 1 Flo Caballero. [address], [id number], [place]. tel:[phone] Referring Provider: Ada Hernandez, [address], [address]. tel:[phone], [facility], tel:[phone] [facility] Cancer of prostate with low recurrence risk (stage T1-2a and Maria Isabel < 7 and PSA < 10) Oct-0 1 Flo Caballero. [facility], [address] [place] [address], [id number], [place]. tel:[phone] Office o/p est mod 30-[address], [facility], tel:[phone] [facility] Diagnostic test follow up (chief complaint) Erectile dysfunction associated with type 2 diabetes mellitusErec tile dysfunction due to diseases classified elsewhereHyp erlipidemia, unspecifiedH ypertension associated with diabetesHype rtension secondary to endocrine disordersOSA on CPAPDependen ce on other enabling machines and devicesTobac co consumptionB justino mass index [BMI] 39.0-39.9, adultProstat e nodule Feb- 1 Flo Geller [facility], [address] [place] [address], [id number], [place]. tel:[phone] Referring Provider: Ada Hernandez, [address], [address]. tel:[phone] Offic/outpt E&m Estab Mod-hi [address], [facility], tel:[phone] [facility] Discuss test results (chief complaint) Excessive drinking of alcoholHyper tension associated with diabetesType 2 diabetes mellitus with other kidney complication Hyperlipidem ia associated with type 2 diabetes mellitusBody mass index [BMI] 38.0-38.9, adult May- 2-202 0 No Information Referring Provider: Ada Hernandez, [address], [address]. tel:[phone] [facility], [address] [place] [address], [facility], [place] tel:[phone] [facility] Elevated PSA 0 Flo Caballero. [facility], [address] [place] [address], [id number], [place]. tel:[phone], [facility], [place] tel:[phone] [facility] Routine lab draw 0 Flo Caballero. [facility], [address] [place] [address], [id number], [place]. tel:[phone] Offic/outpt E&m Estab Mod-hi [address], [facility], tel:[phone] [facility] Diabetes/HTN (chief complaint) Hyperlipidem ia associated with type 2 diabetes mellitusHype rlipidemia, unspecifiedH ypertension associated with diabetesEsse ntial (primary) hypertension Nephrosis in diabetes mellitusOSA on CPAPDependen ce on other enabling machines and devicesCellu litis of external cheek, rightBody mass index (BMI) 36.0-36.9, adult Jul- 6-201 9 Flo Caballero. [address], [id number], [place]. tel:[phone] Referring Provider: Ada Hernandez, [address], [address]. tel:[phone] [facility], [address] [place] [address], [address], [place] tel:[phone] [facility] Abnormal laboratory test result Sep- 9 Flo Caballero. [facility], [address] [place] [address], [id number], [place]. tel:[phone] Offic/outpt E&m Estab Mod-hi 2 [facility], [address] [place] [address], [address], [place] tel:[phone] [facility] hypertension (chief complaint)di abetes - established (chief complaint) Hyperlipidem ia associated with type 2 diabetes mellitusHype rlipidemia, unspecifiedH ypertension associated with diabetesEsse ntial (primary) hypertension Left anterior knee painOSA on CPAPDependen ce on other enabling machines and devicesBody mass index (BMI) 36.0-36.9, adult Sep- 9 Flo Caballero. [facility], [address] [place] [address], [id number], [place]. tel:[phone] Referring Provider: Ada Rossi MD R, [address], [address]. tel:[phone] [facility], [address] [place] [address], [address], [place] tel:[phone] [facility] Type 2 diabetes mellitus with diabetic macular edema, resolved following treatment, unspecified eye Sep-0 9 Flo Caballero. [facility], [address] [place] [address], [id number], [place]. tel:[phone], [address], [place] tel:[phone] [facility] Hyperlipidem ia associated with type 2 diabetes mellitus Aug- 9 Flo Caballero. [facility], [address] [place] [address], [id number], [place]. tel:[phone] Offic/outpt E&m Estab Mod-hi 2 [facility], [address] [place] [address], [facility], tel:[phone] [facility] hypertension (chief complaint)mu sculoskeleta l pain (chief complaint) Type 2 diabetes mellitus without complication sHypertensio n associated with diabetesEsse ntial (primary) hypertension Hyperlipidem ia associated with type 2 diabetes mellitusHype rlipidemia, unspecifiedP ain in right kneePain in left kneeBody mass index (BMI) 37.0-37.9, adult December- 0-201 9 Flo Caballero. [facility], [address] [place] [address], [id number], [place]. tel:[phone] Referring Provider: Ada Hernandez, [address], [address]. tel:[phone], [facility], tel:[phone] [facility] Type 2 diabetes mellitus without complication sRoutine lab draw 9 Flo Caballero. [facility], [address] [place] [address], [id number], [place]. tel:[phone] Offic/outpt E&m Estab Mod-hi 2 [facility], [address] [place] [address], [facility], tel:[phone] [facility] joint pain (chief complaint) Arthritis of left kneeBody mass index (BMI) 36.0-36.9, adult 9 Flo Caballero. [address], [id number], [place]. tel:[phone] Referring Provider: Ada Hernandez, [address], [address]. tel:[phone] Offic/outpt E&m Estab Low-mod [facility], [address] [place] [address], [facility], [place] tel:[phone] [facility] musculoskele osito pain (chief complaint) Recurrent pain of left kneeBody mass index (BMI) 36.0-36.9, adult 9 Michael Mcneill. [facility], [address] [place] [address], [id number], [place]. tel:[phone] Referring Provider: Charito Wright, [address], [address]. tel:[phone] Offic/outpt E&m Estab Mod-hi 2 [facility], [address] [place] [address], [facility], [place] tel:[phone] [facility] hypertension (chief complaint) Hyperlipidem ia associated with type 2 diabetes mellitusHype rlipidemia, unspecifiedH ypertension associated with diabetesEsse ntial (primary) hypertension Nephrosis in diabetes mellitusBody mass index (BMI) 38.0-38.9, adult 9 Flo Caballero. [facility], [address] [place] [address], [id number], [place]. tel:[phone] Referring Provider: Ada Hernandez, [address], [address]. tel:[phone] Offic/outpt E&m Estab 5 Min [facility], [address] [place] [address], [facility], [place] tel:[phone] Primary [facility] nurse visit (chief complaint) Essential (primary) hypertension 9 Flo Caballero. [address], [id number], [place]. tel:[phone] Referring Provider: Ada Hernandez, [address], [address]. tel:[phone] lting Provider: Flo Nurse, [address], [address]. Offic/outpt E&m Estab 5 Min [facility], [address] [place] [address], [facility], tel:[phone] [facility] nurse visit (chief complaint) Essential (primary) hypertension Flo Caballero. [address], [id number], . tel:[phone] Referring Provider: Ada Hernandez, [address], [address]. tel:[phone] lting Provider: lFo Nurse, [address], [facility]. Offic/outpt E&m Estab [facility] [address], [facility], tel:[phone] [facility] hypertension (chief complaint) Hypertensive urgencyHyper tension associated with diabetesHype rlipidemia associated with type 2 diabetes mellitusHype rlipidemia, unspecifiedN ephrosis in diabetes mellitusOSA on CPAPDependen ce on other enabling machines and devicesTobac co consumptionB justino mass index (BMI) 38.0-38.9, adult 9 Flo Caballero. [address], [id number], [place]. tel:[phone] Referring Provider: Ada Hernandez, [address], [address]. tel:[phone] Offic/outpt E&m Estab Mod-hi [address], [facility], [place] tel:[phone] [facility] hypertension (chief complaint) Erectile dysfunction associated with type 2 diabetes mellitusErec tile dysfunction due to diseases classified elsewhereHyp erlipidemia, unspecifiedT obacco consumptionB justino mass index (BMI) 38.0-38.9, adultHyperte nsion associated with diabetes 8 Flo Caballero. [facility], [address] [place] [address], [id number], [place]. tel:[phone] Referring Provider: Ada Hernandez, [address], [address]. tel:[phone] [facility], [address] [place] [address], [facility], [place] tel:[phone] [facility] Type 2 diabetes mellitus without complication s 8 Flo Caballero. [facility], [address] [place] [address], [id number], [place]. tel:[phone] [facility], [address] [place] [address], [facility], [place] tel:[phone] Primary [facility] musculoskele osito pain (chief complaint) Paresthesias Essential (primary) hypertension Body mass index (BMI) 38.0-38.9, adult 8 Johnnie Saha. [facility], [address] [place] [address], [facility], [place]. tel:[phone] Referring Provider: Ada Hernandez, [address], [address]. tel:[phone] [facility]pt [facility], [address] [place] [address], [facility], [place] tel:[phone] Primary [facility] hypertension (chief complaint) Erectile dysfunction associated with type 2 diabetes mellitusErec tile dysfunction due to diseases classified elsewhereHyp erlipidemia, unspecifiedH ypertension associated with diabetesEsse ntial (primary) hypertension Tobacco consumptionB justino mass index (BMI) 37.0-37.9, adult 8 Flo Caballero. [facility], [address] [place] [address], [id number], [place]. tel:[phone] Referring Provider: Ada Hernandez, [address], [address]. tel:[phone] [facility], [address] [place] [address], [facility], [place] tel:[phone] Primary [facility] Abnormal laboratory test result 8 Flo Caballero. [facility], [address] [place] [address], [id number], [place]. tel:[phone] Offic/outpt E&m Estab Mod-hi [address], [facility], [place] tel:[phone] [facility] Diabetes/HTN (chief complaint) Type 2 diabetes mellitus with other specified complication , without long-term current use of insulinHyper lipidemia, unspecifiedH ypertension associated with diabetesEsse ntial (primary) hypertension Tobacco consumptionB justino mass index (BMI) 38.0-38.9, adult Apr- 8 Flo Caballero. [facility], [address] [place] [address], [id number], [place]. tel:[phone] Referring Provider: Ada Rossi MD R, [address], [address]. tel:[phone], [facility], [place] tel:[phone] [facility] Hyperlipidem ia associated with type 2 diabetes mellitus 8 Flo Caballero. [facility], [address] [place] [address], [id number], [place]. tel:[phone] Offic/outpt E&m Estab Mod-hi 2 [facility], [address] [place] [address], [address], [place] tel:[phone] [facility] Diabetes/HTN (chief complaint) Mild asthma without complication , unspecified whether persistentHy perlipidemia associated with type 2 diabetes mellitusHype rlipidemia, unspecifiedH ypertension associated with diabetesEsse ntial (primary) hypertension Tobacco consumptionO SA on CPAPDependen ce on other enabling machines and devicesErect ile dysfunction due to diseases classified elsewhereBod y mass index (BMI) 39.0-39.9, adult 7 Flo Caballero. [facility], [address] [place] [address], [id number], . tel:[phone] Referring Provider: Ada Hernandez, [address], [address]. tel:[phone] Offic/outpt E&m Estab Mod-nh [address], [facility], tel:[phone] [facility] Diabetes/HTN (chief complaint)Mu sculoskeleta l pain (chief complaint)mu sculoskeleta l pain (chief complaint) Hypertension associated with diabetesEsse ntial (primary) hypertension Tobacco consumptionT ype 2 diabetes mellitus with other specified complication , without long-term current use of insulinHyper lipidemia, unspecifiedN octuriaBody mass index (BMI) 39.0-39.9, adult 7 Flo Caballero. [facility], [address] [place] [address], [id number], [place]. tel:[phone] Referring Provider: Ada Hernandez, [address], [address]. tel:[phone] [facility], [address] [place] [address], [facility], [place] tel:[phone] [facility] No Information 6 No Information Referring Provider: Ada Hernandez, [address], [address]. tel:[phone] Offic/outpt E&m Estab [facility] [address], [facility], [place] tel:[phone] [facility] Diabetes/HTN (chief complaint) Hyperlipidem ia associated with type 2 diabetes mellitusHype rlipidemia, unspecifiedH ypertension associated with diabetesEsse ntial (primary) hypertension KIKA on CPAPBPH (benign prostatic hypertrophy) with urinary obstructionO ther obstructive and reflux uropathyBody mass index (BMI) 37.0-37.9, adult 8 6 Flo Caballero. [address], [id number], [place]. tel:[phone] Referring Provider: Ada Hernandez, [address], [address]. tel:[phone], [facility], [place] tel:[phone] [facility] Type 2 diabetes mellitus without complication sScreening 6 Flo Caballero. [address], [id number], [place]. tel:[phone] Offic/outpt E&m Estab Mod-hi [address], [address], [place] tel:[phone] [facility] Follow Up of Cough (chief complaint) Type 2 diabetes mellitus with other specified complication Tobacco consumptionH ypertension associated with diabetesEsse ntial (primary) hypertension Hyperlipidem ia, unspecifiedN ephrosis in diabetes mellitusLeft anterior knee painBody mass index (BMI) 37.0-37.9, adult 0201 6 Flo Caballero. [address], [id number], [place]. tel:[phone] Referring Provider: Ada Hernandez, [address], [address]. tel:[phone], [address], [place] tel:[phone] [facility] No Information 6 No Information Referring Provider: Ada Hernandez, [address], [address]. tel:[phone] [facility], [address] [place] [address], [address], [place] tel:[phone] [facility] Abnormal CXR 6 Flo Caballero. [facility], [address] [place] [address], [id number], [place]. tel:[phone] [facility], [address] [place] [address], [address], [place] tel:[phone] [facility] No Information 6 No Information Offic/outpt E&m Estab Low-mod [facility], [address] [place] [address], [address], [place] tel:[phone] [facility] Cough (chief complaint) CoughAbnorma l CXRBody mass index (BMI) 36.0-36.9, adult 6 No Information Referring Provider: Ada Hernandez, [address], [address]. tel:[phone], [address], [place] tel:[phone] [facility] No Information No Information Referring Provider: Tami Guadalupe, [address], [address]. tel:[phone] Offic/outpt E&m Estab Mod-hi 2 [facility], [address] [place] [address], [address], [place] tel:[phone] Urgent Care cough (chief complaint) Encounter for screening for respiratory disorder NECCoughPneu monia due to organismHypo tension, unspecified hypotension typeBody mass index (BMI) 34.0-34.9, adult Oct- 6 Keaton Garrett. [facility], [address] [place] [address], [id number], [place]. tel:[phone] Referring Provider: Ada Hernandez, [address], [address]. tel:[phone] [facility], [address] [place] [address], [address], [place] tel:[phone] [facility] Type 2 diabetes mellitus with other diabetic kidney complication Routine lab draw 6 Flo Caballero. [facility], [address] [place] [address], [id number], [place]. tel:[phone] [facility], [address] [place] [address], [address], [place] tel:[phone] [facility] Type 2 diabetes mellitus with other diabetic kidney complication 5 Flo Caballero. [facility], [address] [place] [address], [id number], [place]. tel:[phone] Offic/outpt E&m Estab Low-mod [facility], [address] [place] [address], [address], [place] tel:[phone] [facility] Diabetes/HTN (chief complaint) Essential (primary) hypertension Type 2 diabetes mellitus with diabetic nephropathyB justino mass index (BMI) 36.0-36.9, adult Oct- 0- 5 Flo Caballero. [facility], [address] [place] [address], [id number], [place]. tel:[phone] Referring Provider: Ada Hernandez, [address], [address]. tel:[phone] [facility], [address] [place] [address], [address], [place] tel:[phone] [facility] Type 2 diabetes mellitus with other diabetic kidney complication 2- 5 Flo Caballero. [facility], [address] [place] [address], [id number], [place]. tel:[phone] Offic/outpt E&m Estab Mod-hi 2 [facility], [address] [place] [address], [address], [place] tel:[phone] [facility] Diabetes - established (chief complaint) Unspecified essential hypertension Asthma, unspecifiedD iabetes mellitus with renal manifestatio ns, type II or unspecified type, not stated as uncontrolled Body Mass Index 36.0-36.9, erlinda 5 Flo Caballero. [facility], [address] [place] [address], [id number], [place]. tel:[phone] Referring Provider: Ada Hernandez, [address], [address]. tel:[phone], [facility], [place] tel:[phone] [facility] Diabetes mellitus Feb- 5 Flo Caballero. [facility], [address] [place] [address], [id number], [place]. tel:[phone] [facility] E&m Estab Pt; 40-[address], [address], [place] tel:[phone] [facility] preventive exam (chief complaint) ROUTINE MEDICAL EXAMBody Mass Index 38.0-38.9, aduUnspecifi ed sleep apneaUnspeci fied essential hypertension Nephrotic syndrome in diseases classified elsewhereDia betes mellitus without mention of complication , type II or unspecified type, not stated as uncontrolled Other and unspecified hyperlipidem iaLeft knee pain 5 Flo Caballero. [facility], [address] [place] [address], [id number], [place]. tel:[phone] Referring Provider: Ada Hernandez, [address], [address]. tel:[phone] [facility], [address] [place] [address], [address], [place] tel:[phone] [facility] No Information 4 [place] LEX Lavonne. [facility], [address] [place] [address], [id number], [place]. tel:[phone] Referring Provider: Lavonnecarlene Thornton OD N, [address], [address]. tel:[phone] Offic/outpt E&m Estab Mod-hi 2 [facility], [address] [place] [address], [facility], [place] tel:[phone] [facility] First Visit (chief complaint) Body Mass Index 37.0-37.9, aduOSA on CPAPHyperten frederick associated with diabetesUnsp ecified essential hypertension Nephrosis in diabetes mellitusNeph rotic syndrome in diseases classified elsewhereDia betes mellitusHype rlipidemiaAs thmaObeseTob acco consumption 4 Flo Caballero. [facility], [address] [place] [address], [id number], [place]. tel:[phone] Referring Provider: Ada Rossi MD R, [address], [address]. tel:[phone] [facility], [address] [place] [address], [facility], [place] tel:[phone] Radiology [facility] No Information 0 No Information [facility], [address] [place] [address], [address], [place] tel:[phone] Diagnostic Services [facility] No Information [address] [facility] Kevan. [facility], [address] [place] [address], [id number], [place]. tel:[phone] Family History Family Member Type Diagnosis Age At Onset Problem No family history of Glaucom a Problem No family history of Macular degeneration Problem No family history of Catarac ts Immunizations Vaccine Date Status Comments Shingrix administered Source: New Imm unization Record COVID-19 MODERNA(12Y+) administered [facility] e: Other Registry SARS-COV-2 (COVID-19) vaccin e, mRNA, spike protein, LNP, preservative free, 30 mcg/0.3mL dose (Pfizer) administered Note: Florence guevara nurse is not the administering nurse. See consent form. ; Source: New Immunization Record SARS-COV-2 (COVID-19) vaccin e, mRNA, spike protein, LNP, preservative free, 30 mcg/0.3mL dose (Pfizer) administered Note: Documentsriram g nurse is not the administering nurse. See consent form. ; Source: New Immunization Record Tdap administered Source: New Imm unization Record Pneumo (2 yrs or older)(PPV) administered Source: New Immunization Record Payers Payer name Insurance type Covered democrat ID Authoriza tion(s) [employer] HM [id number] [employer] HM [id number] [employer] HM [id number] [employer] HM [id number] [employer] HM [id number] Social History Type Description Quantity Date Captured Comments Sex Male Smoking Status No Information Chief Complaint And Reason For Visit No Information Reason For Referral Reason For Referral No Information Plan Of Treatment Date Type Action Status Goal Td vaccine. Due on due Goal Depression scree padilla. Due on due Goal Blood Pressure S creening (Annual). Due on due Goal CT-Colonography. Due on due Goal Alcohol Misuse S creening. Due on due Goal Zoster vaccine ( 2nd). Due on due Goal Diabetes Screeni ng (BMI 25 and above) - HgbA1C. Due on due Goal FIT-DNA. Due on due Goal Colonoscopy. Due on due Goal FIT. Due on due Goal Unhealthy drug u se screening. Due on due Goal Sigmoidoscopy. Due on due Goal Hepatitis C scre ening. Due on due Goal Lipid panel. Due on due Goal Zoster vaccine (1st) due Goal FOBT. Due on due Goal Lipid panel. Due on due Goal Alcohol Misuse S creening. Due on due Goal Td vaccine. Due on due Goal FIT. Due on due Goal Zoster vaccine () due Goal Unhealthy drug u se screening. Due on due Goal Hepatitis C scre ening. Due on due Goal FOBT. Due on due Goal Colonoscopy. Due on due Goal Sigmoidoscopy. Due on due Goal Zoster vaccine ( 2nd). Due on due Goal CT-Colonography. Due on due Goal Diabetes Screeni ng (BMI 25 and above) - HgbA1C. Due on due Goal Blood Pressure S creening (Annual). Due on due Goal FIT-DNA. Due on due Goal Depression scree padilla. Due on due Goal FOBT. Due on due Goal CT-Colonography. Due on due Goal Alcohol Misuse S creening. Due on due Goal Depression scree padilla. Due on due Goal Diabetes Screeni ng (BMI 25 and above) - HgbA1C. Due on due Goal Hepatitis C scre ening. Due on due Goal Zoster vaccine (1st) due Goal Zoster vaccine ( 2nd). Due on due Goal Td vaccine. Due on due Goal Unhealthy drug u se screening. Due on due Goal Lipid panel. Due on 030 due Goal Blood Pressure S creening (Annual). Due on due Goal Colonoscopy. Due on 023 due Goal Sigmoidoscopy. Due on due Goal FIT. Due on due Goal FIT-DNA. Due on due Goal FIT. Due on due Goal Colonoscopy. Due on 023 due Goal Sigmoidoscopy. Due on due Goal FIT-DNA. Due on due Goal Blood Pressure S creening (Annual). Due on due Goal FOBT. Due on due Goal Hepatitis C scre ening. Due on due Goal Lipid panel. Due on [address]-Colonography. Due on due Goal Diabetes Screeni ng (BMI 25 and above) - HgbA1C. Due on due Goal Zoster vaccine ( 2nd). Due on due Goal Td vaccine. Due on due Goal Depression scree padilla. Due on due Goal Zoster vaccine (1st) due Goal Unhealthy drug u se screening. Due on due Goal Alcohol Misuse S creening. Due on due Goal Depression scree padilla. Due on due Goal FIT. Due on due Goal Td vaccine. Due on due Goal CT-Colonography. Due on due Goal Unhealthy drug u se screening. Due on due Goal Lipid panel. Due on 029 due Goal Colonoscopy. Due on 023 due Goal Blood Pressure S creening (Annual). Due on due Goal Zoster vaccine ( 2nd). Due on due Goal FIT-DNA. Due on due Goal FOBT. Due on due Goal Diabetes Screeni ng (BMI 25 and above) - HgbA1C. Due on due Goal Zoster vaccine (1st) due Goal Alcohol Misuse S creening. Due on due Goal Hepatitis C scre ening. Due on due Goal Sigmoidoscopy. Due on due Goal Diabetes Screeni ng (BMI 25 and above) - HgbA1C. Due on due Goal Hepatitis C scre ening. Due on due Goal Sigmoidoscopy. Due on due Goal Depression scree padilla. Due on due Goal Colonoscopy. Due on [address]-Colonography. Due on due Goal Alcohol Misuse S creening. Due on due Goal FOBT. Due on due Goal FIT. Due on due Goal Zoster vaccine (1st) due Goal Blood Pressure S creening (Annual). Due on due Goal FIT-DNA. Due on due Goal Unhealthy drug u se screening. Due on due Goal Lipid panel. Due on 029 due Goal Diabetes Screeni ng (BMI 25 and above) - HgbA1C. Due on due Goal Depression scree padilla. Due on due Goal Alcohol Misuse S creening. Due on due Goal CT-Colonography. Due on due Goal Zoster vaccine. Due on due Goal Lipid panel. Due on 028 due Goal Zoster vaccine ( 1st). Due on due Goal Blood Pressure S creening (Annual). Due on due Goal FIT-DNA. Due on due Goal Unhealthy drug u se screening. Due on due Goal FIT. Due on due Goal Sigmoidoscopy. Due on due Goal FOBT. Due on due Goal Colonoscopy. Due on due Goal Hepatitis C scre ening. Due on due Goal FOBT. Due on due Goal Zoster vaccine ( 1st). Due on due Goal Diabetes Screeni ng (BMI 25 and above) - HgbA1C. Due on due Goal Sigmoidoscopy. Due on due Goal CT-Colonography. Due on due Goal Blood Pressure S creening (Annual). Due on due Goal Zoster vaccine. Due on due Goal FIT-DNA. Due on due Goal Colonoscopy. Due on 023 due Goal Lipid panel. Due on 028 due Goal FIT. Due on due Goal Unhealthy drug u se screening. Due on due Goal Depression scree padilla. Due on due Goal Alcohol Misuse S creening. Due on due Goal Hepatitis C scre ening. Due on due Goal Depression scree padilla. Due on due Goal Zoster vaccine. Due on due Goal Blood Pressure S creening (Annual). Due on due Goal Diabetes Screeni ng (BMI 25 and above) - HgbA1C. Due on due Goal Zoster vaccine ( ). Due on due Goal Alcohol Misuse S creening. Due on due Goal FIT. Due on due Goal FOBT. Due on due Goal Lipid panel. Due on 028 due Goal Hepatitis C scre ening. Due on due Goal Unhealthy drug u se screening. Due on due Goal Depression scree padilla. Due on due Goal FIT. Due on due Goal Blood Pressure S creening (Annual). Due on due Goal Zoster vaccine. Due on due Goal Diabetes Screeni ng (BMI 25 and above) - HgbA1C. Due on due Goal Zoster vaccine ( ). Due on due Goal Alcohol Misuse S creening. Due on due Goal Hepatitis C scre ening. Due on due Goal FOBT. Due on due Goal Unhealthy drug u se screening. Due on due Goal Lipid panel. Due on 027 due Goal Hepatitis C scre ening. Due on due Goal FIT. Due on due Goal Unhealthy drug u se screening. Due on due Goal FOBT. Due on due Goal Depression scree padilla. Due on due Goal Diabetes Screeni ng (BMI 25 and above) - HgbA1C. Due on due Goal Blood Pressure S creening (Annual). Due on due Goal Alcohol Misuse S creening. Due on due Goal Lipid panel. Due on due Goal Zoster vaccine. Due on due Goal Zoster vaccine ( ). Due on due Goal Zoster vaccine ( ). Due on due Goal FOBT. Due on due Goal Blood Pressure S creening (Annual). Due on due Goal Alcohol Misuse S creening. Due on due Goal Depression scree padilla. Due on due Goal FIT. Due on due Goal Diabetes Screeni ng (BMI 25 and above) - HgbA1C. Due on due Goal Unhealthy drug u se screening. Due on due Goal Zoster vaccine. Due on due Goal Lipid panel. Due on due Goal Hepatitis C scre ening. Due on due Goal Blood Pressure S creening (Annual). Due on due Goal FIT. Due on due Goal FOBT. Due on due Goal Depression scree padilla. Due on due Goal Alcohol Misuse S creening. Due on due Goal Hepatitis C scre ening. Due on due Goal Lipid panel. Due on due Goal Diabetes Screeni ng (BMI 25 and above) - HgbA1C. Due on due Goal Zoster vaccine ( ). Due on due Goal Zoster vaccine. Due on due Goal Unhealthy drug u se screening. Due on due Goal FOBT. Due on due Goal Sigmoidoscopy. Due on due Goal Depression scree padilla. Due on due Goal Lipid panel. Due on 026 due Goal Colonoscopy. Due on 021 due Goal Blood Pressure S creening (Annual). Due on due Goal Alcohol Misuse S creening. Due on due Goal Diabetes Screeni ng (BMI 25 and above) - HgbA1C. Due on due Goal Zoster vaccine ( ). Due on due Goal Alcohol Misuse S creening. Due on due Goal Zoster vaccine ( ). Due on due Goal Lipid panel. Due on 024 due Goal Blood Pressure S creening (Annual). Due on due Goal Sigmoidoscopy. Due on due Goal FOBT. Due on due Goal Diabetes Screeni ng (BMI 25 and above) - HgbA1C. Due on due Goal Depression scree padilla. Due on due Goal Colonoscopy. Due on due Goal Diabetes Screeni ng (BMI 25 and above) - HgbA1C. Due on due Goal Colonoscopy. Due on due Goal Sigmoidoscopy. Due on due Goal Alcohol Misuse S creening. Due on due Goal Depression scree padilla. Due on due Goal Zoster vaccine ( ). Due on due Goal Blood Pressure S creening (Annual). Due on due Goal Lipid panel. Due on due Goal FOBT. Due on due Goal Alcohol Misuse S creening. Due on due Goal Sigmoidoscopy. Due on due Goal Depression scree padilla. Due on due Goal Zoster vaccine ( ). Due on due Goal Lipid panel. Due on due Goal FOBT. Due on due Goal Blood Pressure S creening (Annual). Due on due Goal Diabetes Screeni ng (BMI 25 and above) - HgbA1C. Due on due Goal Colonoscopy. Due on due Goal Diabetes Screeni ng (BMI 25 and above) - HgbA1C. Due on due Goal Blood Pressure S creening (Annual). Due on due Goal Sigmoidoscopy. Due on due Goal Lipid panel. Due on due Goal Colonoscopy. Due on due Goal Zoster vaccine ( ). Due on due Goal FOBT. Due on due Goal Depression scree padilla. Due on due Goal Alcohol Misuse S creening. Due on due Goal Blood Pressure S creening (Annual). Due on due Goal Zoster vaccine ( ). Due on due Goal Lipid panel. Due on due Goal Colonoscopy. Due on due Goal Sigmoidoscopy. Due on due Goal Alcohol Misuse S creening. Due on due Goal Diabetes Screeni ng (BMI 25 and above) - HgbA1C. Due on due Goal FOBT. Due on due Goal Depression scree padilla. Due on due Goal Alcohol Misuse S creening. Due on due Goal Sigmoidoscopy. Due on due Goal Blood Pressure S creening (Annual). Due on due Goal Depression scree padilla. Due on due Goal FOBT. Due on due Goal Blood Pressure S creening (Annual). Due on due Goal Depression scree padilla. Due on due Goal FOBT. Due on due Goal Sigmoidoscopy. Due on due Goal Alcohol Misuse S creening. Due on due Goal Depression scree padilla. Due on due Goal FOBT. Due on due Goal Alcohol Misuse S creening. Due on due Goal Blood Pressure S creening (Annual). Due on due Goal Sigmoidoscopy. Due on due Goal Depression scree padilla. Due on due Goal Sigmoidoscopy. Due on due Goal Blood Pressure S creening (Annual). Due on due Goal FOBT. Due on due Goal Alcohol Misuse S creening. Due on due Goal Depression scree padilla. Due on due Goal FOBT. Due on due Goal Sigmoidoscopy. Due on due Goal Alcohol Misuse S creening. Due on due Goal Blood Pressure S creening (Annual). Due on due Goal Alcohol Misuse S creening. Due on due Goal FOBT. Due on due Goal Sigmoidoscopy. Due on due Goal Depression scree padilla. Due on due Goal Blood Pressure S creening (Annual). Due on due Goal Depression scree padilla. Due on due Goal Blood Pressure S creening (Annual). Due on due Goal Alcohol Misuse S creening. Due on due Goal Sigmoidoscopy. Due on due Goal FOBT. Due on due Goal Depression scree padilla. Due on due Goal Blood Pressure S creening (Annual). Due on due Goal Sigmoidoscopy. Due on due Goal Alcohol Misuse S creening. Due on due Goal FOBT. Due on due Goal Sigmoidoscopy. Due on due Goal Blood Pressure S creening (Annual). Due on due Goal Depression scree padilla. Due on due Goal FOBT. Due on due Goal Alcohol Misuse S creening. Due on due Goal FOBT. Due on due Goal Alcohol Misuse S creening. Due on due Goal Sigmoidoscopy. Due on due Goal Alcohol Misuse S creening. Due on due Goal FOBT. Due on due Goal Sigmoidoscopy. Due on due Goal FOBT. Due on due Goal Alcohol Misuse S creening. Due on due Goal Sigmoidoscopy. Due on due Goal Pneumovax 23 due Goal Hep C Ab (Hepatitis C Ab) du e Goal Hep C Ab (Hepatitis C Ab) du e Goal FOBT. Due on due Goal Daily low dose a spirin - High risk for cardiovascular disease due Goal Alcohol Misuse S creening. Due on due Goal Blood Pressure S creening (Annual). Due on due Goal Alcohol Misuse S creening. Due on due Goal Daily low dose a spirin - High risk for cardiovascular disease due Goal Sigmoidoscopy. Due on due Goal HIV Screen due Goal Blood Pressure S creening (Annual). Due on due Goal Tdap due Goal Hep C Ab (Hepati tis C Ab). Due on due Goal HIV Screen. Due on 16 due Goal Pneumococcal vaccine due Goal Alcohol Misuse S creening. Due on due Goal Depression scree padilla. Due on due Goal Diabetes Screeni ng (BMI 25 and above) - HgbA1C. Due on due Goal Influenza vaccine. Due on due Goal Daily low dose a spirin - High risk for cardiovascular disease. Due on due Goal Blood Pressure S creening (Annual). Due on due Referral Ordered: Shiv Jones DDS (related to Gingival hypertrophy) ordered Referral Referred To: Shiv Jones DDS [address], [address] [phone] Ordered: Referrals: Shiv Jones DDS Appointment date/timeframe: 1 Month ordered Referral Ordered: Clavicle - Xray left clavicle Appointment date/timeframe: 08/21/2024 ordered Referral Referred To: [facility] [address] [place], [address] [phone] Ordered: Referrals: [facility] Tests ordered Referral Referred To: [place] [address] [place], [address] [phone] Ordered: Referrals: [facility] ordered Referral Referred To: [place] Ordered: Referrals: [place] ordered Referral Ordered: Overnight Pulse Oximetry ordered Referral Referred To: Yung Martinez MD [facility] [address] [place] [address], [address] [phone] Ordered: Referrals: Yung Martinez MD. Evaluate and treat ordered Referral Ordered: Jamison Angeles MD (related to Elevated PSA) ordered Referral Referred To: Jamison Angeles MD [facility] [address] [place], [address] [phone] Ordered: Referrals: Jamison Angeles MD ordered Referral Ordered: Bladder - US Bladder ordered Referral Ordered: [facility] (related to Left anterior knee pain) ordered Referral Referred To: [facility] [address], [address] [phone] Ordered: Referrals: [facility]. Evaluate and treat ordered Referral Ordered: Chest PA & LAT - Xray chest ordered Referral Ordered: Chest PA & LAT - Xray ordered Appointment Chet Carver BOOKED Patient Education Knee Arthritis: Exercis es completed Future Order: Lab Order Urinalys is, Routine ([id number]), Sent on: Sent Future Order: Lab Order Albumin/ Creat Ratio ([id number]), Sent on: Sent Future Order: Lab Order Basic Me tabolic Panel (8) ([id number]), Sent on: Sent Future Order: Lab Order CBC, Shiva telet; No Differential ([id number]), Sent on: Sent Future Order: Lab Order Comp. Me tabolic Panel (14) ([id number]), Sent on: Sent Future Order: Lab Order Hemoglob in A1c ([id number]), Sent on: Sent Future Order: Lab Order Lipid Pa eve[place] With LDL/HDL Ratio ([id number]), Sent on: Sent Future Order: Lab Order Prostate -Specific Ag, Serum ([id number]), Sent on: Sent Future Order: Lab Order TSH ([id number]), Sen t on: Sent Future Order: Lab Order Microalb /Creat Ratio, Crystal Davies ([id number]), Sent on: Sent Future Order: Lab Order Vitamin D, 25-Hydroxy ([id number]), Sent on: Sent History Of Present Illness Encounter Date Complaint History Of Prese nt Illness Diabetes/HTN blurry vision The 64 year old client presents for evaluation of blurry vision in the right eye and left eye. Patient It started about 2 year(s) ago. It occurs daily. The onset was gradual. It affects distance vision. The symptom is constant. The condition is mild. Patient states he mostly notices him needing to grab glasses is when hes watching tv. Patient is diabetic, no eye drops. MIKE: preventive exam Men's preventive visit. Marital status: . Relevant history is positive for alcohol use. arm pain Onset: 1 year ag o. The problem is stable. Location: left shoulder. The pain radiates to the to R arm/hand. The pain is aching and sharp. Context: there is no injury. The pain is aggravated by sleeping on right side. The pain is relieved by heat, massage, mobility and biofreeze. Associated symptoms include nocturnal pain. Pertinent negatives include decreased mobility and weakness. Hand Dominance: right. Additional information: started in the , was also at time when had back pain and was in traction, saw chiropractor. hypertension It is currently stable. Risk factors include age over age 60, male gender and obesity. The hypertension is exacerbated by anxiety and stress. Pertinent negatives include chest pain, fatigue and headache. Prostate Cancer The problem is s table. Pertinent negatives include chest pain, fatigue and headache. diabetes - established Last A1c was 6.5 on 04/24/2024. Last Microalb/Creat Ratio was 11 on 04/24/2024. Smoking status: Current some day smoker. Last diabetic eye exam was done on 05/07/2023 by TONY WILHELM. hypertension It is currently stable. Risk factors include age over age 60, male gender and obesity. The hypertension is exacerbated by anxiety and stress. Pertinent negatives include fatigue and visual disturbances. diabetes - established Last A1c was 6.5 on 10/20/2023. Last Microalb/Creat Ratio was 12 on 10/20/2023. Does not eat a healthy diet. Does not exercise Smoking status: Current some day smoker. Last diabetic eye exam was done on 05/07/2023 by TONY WILHELM. aches and pains; knees are getting better. diabetes - established Last A1c was 6.5 on 06/16/2023. Last Microalb/Creat Ratio was 10 on 10/16/2022. Smoking status: Current some day smoker. Last diabetic eye exam was done on 05/07/2023 by TONY WILHELM. Diabetic Eye Exam The 62 year ol d patient presents for evaluation of Diabetic Eye Exam in the right eye and left eye. Patient states he has not noticed any changes in his vision. Patient states he has no vision complaints. Patient states OU parker sometimes. The symptom is frequent. The condition is mild. Patient is diabetic, last A1C was 6.4 in October. Patient uses Visine eye drops. Patient has never had an eye exam before other Atrial Flutter A blation in JulyWent to ER a few days after for some bleeding, resolvedNo palpitationsHas had some weird feelings in his chest, denies linn pain and palpitationsDescribes it as a brief, dull ache lasting a few seconds to a few minutes, occurring more at restSometimes happens several times a day, but typically occurs a few times, every few weeksCardiologist recommended defibrillator (last appt in August) Ran out of blood thinner Seasonal allergies, taking OTC allergy medicines Diabetes/HTN Risk factors inc lude age > 50 years, race () and male gender. Additional information: Has not been checking BP at home since August (at that time, was running 130/80)Some numbness and tingling in his fingers, occasional tingling in his feet. pre op physical The symptoms are reported as being moderate. The symptoms occur daily. The location is heart/lungs. The client states the symptoms are acute. During a recent colonoscopy he was noted to have atrial fibrillation. They were able to complete the procedure and recommended he go to the ER- was seen at Urgent care and they asked him to start eliquis- even though they prescribed it and we discussed it, he did not want to start the eliquis after reading it could cause a stroke. He's still concerned about this. He has been feeling short of breath with exertion- he thought it was from being out of shape. He started exercising more and it got better over time. He didn't think much about it. Was able to go to [place] and lots of walking.No chest pains, no leg swelling, no issues; compliant with cpap and meds (but has not yet taken his afternoon meds today).He does note he's been drinking still fairly heavily. 4-6 drinks/day. He's willing to work on cutting this back but has been struggling with sleep lately and had been using it partly for that reason (since he started worrying about the flight to [place]). The ativan helped a lot. Flight was not an issue. nurse visit Palpitations The client prese nts with a complaint of Palpitations. The symptoms began 1 day ago. The client denies chest discomfort, chest pain, dyspnea, fatigue, nausea and vomiting. Relevant history for this client includes tobacco use. Additional information: Had a colonoscopy this AM, found to have AFib during visit. hypertension It is currently stable. Risk factors include age over age 60, male gender and obesity. The hypertension is exacerbated by anxiety and stress. Pertinent negatives include chest pain, fatigue, headache, irregular heartbeat/palpitations and visual disturbances. Additional information: just got done with prostate cancer treatment. he was kind of wiped out from cancer treatment. diabetes - established Last A1c was 6.9 on 04/28/2022. Last Microalb/Creat Ratio was 26 on 04/28/2022. Does not eat a healthy diet. Does not exercise Smoking status: Current some day smoker. Does not take prescribed medications. Last diabetic eye exam was done on 06/13/2014 by LAVONNE THORNTON Diabetes/HTN Risk factors inc lude age > 50 years, race () and male gender. Patient is adhering to medication , follow-up, diet and exercise recommendations for their HTN . Patient is adhering to medication, follow-up, diet and exercise recommendations for their DM . DM managed with diet and oral medication. Pertinent negatives include chest pain, foot ulcer and nausea. rash Onset 4 weeks ag o. Location is foot, leg and neck. The patient describes it as itchy and burning. The problem is with no change. Denies aggravating factors. Relieving factors include Rubbing alcohol. cough Onset: 1 month a go. The patient describes the cough as productive (of yellow sputum). It occurs occasionally. The problem has not changed. There are no relieving factors. Additional information: Patient reports a cough that starts in the morning upon waking up and then the cough will go away. musculoskeletal pain It occurs c onstantly and is worsening. Location: bilateral knee. (medial) The pain is aching. Context: there is no injury. Pertinent negatives include nocturnal awakening and nocturnal pain. Hand Dominance: right. Additional information: has been told knees need replacing. interested in another round of shots today- limits his walking/getting out; has gained a lot of weight too. prostate cancer The problem is w orsening. Additional information: he was diagnosed with prostate cancer Maria Isabel 7, psa is less than 10. he's heard good things about [facility] [place]. Diagnostic test follow up The sy mptoms are reported as being mild. The symptoms occur constantly. He states the symptoms are acute. Comes in today to discuss MRI of prostate preformed on 07-10-20. Patient is scheduled on 10-04-[address] Morrison for biopsy. Discuss test results 59yoM in to discuss of recent labs.Cr okay, stable CKD 3. Alb/Cr A1c 6.1% NOT on metformin. Thinks it gave him some symptoms. Has not been on it in 4 months. LDL 111, not on a statinVit D 13.9, not on supplementBP - carvedilol, losartan and nifedipinePhysical activity - plays softball - this year has been abnl, but typically would play a lot throughout the year. Staying home right now, probably drinking a little more, smoking more cigars tooRestarted with softball over the - typically about 2 beers/night plus about 1/2 pint whiskey. this is not most nights. Does not get drunk. gets on him about his drinking. He does not feel guilty or feel like cutting back. Does not think he has a problem. Multiple family members w h/o alcoholism. Diabetes/HTN Risk factors inc lude age > 50 years, race () and male gender. Patient is adhering to medication , follow-up, diet and exercise recommendations for their HTN . Patient is adhering to medication, follow-up, diet and exercise recommendations for their DM . DM managed with diet and oral medication. There are no associated symptoms. Pertinent negatives include blurred vision, chest pain, foot ulcer and nausea. Additional information: he's tolerating meds well; feels ok. hypertension It is currently stable. Risk factors include male gender and obesity. The hypertension is exacerbated by anxiety and stress. Pertinent negatives include chest pain, fatigue, headache and visual disturbances. Additional information: knees are calming down saw [facility]; meloxicam. diabetes - established Last A1c was 6.2 on 04/20/2019. Last Microalb/Creat Ratio was 5.5 on 12/19/2018. Does not eat a healthy diet. Exercises. Smoking status: Current some day smoker. Takes prescribed medications. Not followed by a Customer Contact Sales Associate. Patient reports numb/tingling of hands or feet. Patient denies visual changes. hypertension It is currently stable. Risk factors include male gender and obesity. Associated symptoms include vomiting. Pertinent negatives include chest pain, dyspnea, headache and irregular heartbeat/palpitations. musculoskeletal pain Location: b ilateral knee. Associated symptoms include swelling. Hand Dominance: right. Additional information: R knee got drained at [facility]- is improved some- uses cane at times. left knee is improved. joint pain Onset: 2 weeks a go. Severity level is mild-moderate. The problem is improving. Location: left knee. The pain is aching, sharp and throbbing. Context: there is no injury. The pain is aggravated by bending and walking. Pertinent negatives include decreased mobility, nocturnal awakening, nocturnal pain and swelling. Hand Dominance: right. Additional information: he's just finishing up prednisone- went to get up 2 wks ago and had a tightening- R knee is really the ongoing issue-dislocates at times. this morning was a bit painful. wearing a copper knee brace helps some. improved. musculoskeletal pain Onset: 2 we eks ago. It occurs constantly and is stable. Location: left knee. The pain is aching. Context: there is no injury. The pain is relieved by OTC medicines (naproxen sodium) and stretching. Associated symptoms include locking and swelling. Pertinent negatives include decreased mobility. Hand Dominance: right. Additional information: patient thinks he has hamstring tendonitis in the left knee. patient states that his knee just started hurting. last week it was worse. He plays competitive softball. hypertension It is currently improving. Risk factors include male gender and obesity. The hypertension is exacerbated by anxiety and stress. There are no associated symptoms. Pertinent negatives include chest pain, fatigue, headache and visual disturbances. Additional information: no leg swelling but he's noticed a slight headache- clonidine made him sleepy- alcohol combined though caused diarrhea. nurse visit nurse visit hypertension The severity has been described as being moderate-severe. It is currently getting worse. Risk factors include male gender and obesity. There are no associated symptoms. hypertension The severity has been described as being mild-moderate. It is currently stable. Risk factors include male gender and obesity. The hypertension is exacerbated by nothing. There are no associated symptoms. Pertinent negatives include chest pain, fatigue, headache and visual disturbances. Additional information: he's been doing pretty well overall; R shoulder spasm stopped and has not returned. musculoskeletal pain Onset: 7 ho urs ago. It occurs intermittently and is fluctuating. Location: right shoulder. The pain radiates to the right bicep. The pain is tightness. Context: there is no injury. There are no relieving factors. Associated symptoms include numbness, tingling in the arms, tingling in the legs and headache. Pertinent negatives include decreased mobility, nocturnal awakening, nocturnal pain, popping, spasms, swelling, weakness, confusion, dizziness and blurred vision. Hand Dominance: right. Additional information: Had 10 minutes of numb/tingling in right eye, right arm, right ribs, and down right leg about 7 hours ago. Started again after lunch this afternoon with numb/tingling right arm and right-sided headache. Didn't take BP meds today. hypertension It is currently getting worse. Risk factors include male gender and obesity. The hypertension is exacerbated by nothing. There are no associated symptoms. Pertinent negatives include chest pain, fatigue, headache and visual disturbances. Diabetes/HTN Risk factors inc gloria age > 50 years, race () and male gender. Patient is adhering to follow-up, diet and exercise recommendations for their HTN . Patient is not adhering to medication recommendations for their HTN . Patient is adhering to medication, follow-up, diet and exercise recommendations for their DM . DM managed with diet and oral medication. There are no associated symptoms. Pertinent negatives include blurred vision, chest pain, confusion and headache. Additional information: hes been off his losartan but was taking amlodipine. feet feel cold all the time. but it's very cold there; he's worried about heart attack or stroke from bp being uncontrolled. Diabetes/HTN Risk factors inc gloria age > 50 years, race () and male gender. Patient is adhering to medication , follow-up, diet and exercise recommendations for their HTN . Patient is adhering to medication, follow-up, diet and exercise recommendations for their DM . DM managed with diet and oral medication. There are no associated symptoms. Pertinent negatives include blurred vision, chest pain, foot ulcer, nausea, polydipsia and polyuria (Endocrine). Additional information: he's been using cpap regularly and overall doing well- slipped on diet a bit lately but it's the holidays. Musculoskeletal pain Onset: 3 mo nths ago. Location: left wrist. Associated symptoms include swelling. Additional information: Causes no pain. Has noticed that it is getting larger. He still has full range of motion. No redness around the area. No weakness or numbness of the fingers. Diabetes/HTN Risk factors inc gloria age > 50 years, race () and male gender. Patient is adhering to medication and follow-up recommendations for their HTN . There are no associated symptoms. Additional information: No restriction to his diet. He states he eats tons of fried food. 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 Not able to run much because of his knee pain. musculoskeletal pain Onset: 5 ye ars ago. Severity level is 8. It occurs occasionally and is stable. Location: bilateral knee. The pain is aching and burning. Context: sports injury (baseball). The pain is aggravated by sitting and standing. The pain is relieved by brace/splint, OTC medicines: ibuprofen and biofreeze. Associated symptoms include decreased mobility, joint instability, joint tenderness, locking and swelling. Diabetes/HTN Risk factors inc lude age > 50 years, race () and male gender. Patient is adhering to medication , follow-up, diet and exercise recommendations for their HTN . Patient is adhering to follow-up recommendations for their DM . There are no associated symptoms. Pertinent negatives include blurred vision, chest pain, foot ulcer and nausea. Additional information: prostate has been causing him to not be able to empty bladder completely;. Follow Up of Cough Onset: 6 week s ago. There is no cough present. The problem has improved. Pertinent negatives include cough, dyspnea, nasal congestion and wheezing. The patient does not have a history of allergies. Additional information: 55 yom follow-up r/t pneumonia from 10/20/15. Patient states I feel normal and played softball last night without any problems. Cough Onset: 2 weeks a go. Severity: moderate. The patient describes the cough as productive. It occurs persistently. The problem has not changed. There are no aggravating factors. There are no relieving factors. Associated symptoms include fatigue. Pertinent negatives include chills, fever, nasal congestion, sinus pressure and wheezing. Additional information: seen 10/27 cough and congestion abnormal CXR (report reviewed), started on Augmentin not significantly better. cough Onset: 1 week ag o. The patient's parents describes the cough as hacking and productive (of clear sputum). Associated symptoms include nasal congestion. Pertinent negatives include fever and wheezing. The patient has a history of asthma. Additional information: coricidin and alkaseltzer plus cold/flu with some relief. Diabetes/HTN Risk factors inc lude age > 50 years, race () and male gender. Patient is adhering to medication, follow-up, diet and exercise recommendations for their DM . DM managed with diet and oral medication. There are no associated symptoms. Diabetes - established Does not check blood sugars. Does not eat a healthy diet. Exercises. Smoking status: Current some day smoker. Takes prescribed medications. Does not take aspirin. Does not use an injectable. Medications well tolerated. preventive exam Men's preventive visit. left knee hurts in the back- hx both knees arthroscopy for meniscal; some arthritis. First Visit The location is whole body. from Dr. Dunbar. chart scanned. nothing really needed covering today- bp was high in past was lower today; weight gained. Functional Status Date Functional Assessmen t No Information Instructions Date Instruction Additional Infor jose a Return in 1 year for Adult Exam with Dr. Wilhelm Related to Type 2 diabetes mellitus without complications Impression/Plan Related to Type 2 diabetes mellitus without complications Impression/Plan Related to Age-r elated nuclear cataract, bilateral bp much better controlled. Relat ed to Hypertension secondary to endocrine disorders he's done well- in c lose observation stage. Related to Hx of prostatic malignancy doing well- not in a fib anymore. EKG checked today- no signs volume overload today on exam- EKG shows wide qt interval and some inverted t-waves- I believe this is an old finding due to Hypertrophic ventricle as was noted long ago- he opted not to have a AICD placed but continues to think about this option. as above, on statin now. Related to Hypertrophic cardiomyopathy stable on cpap. Related to KIKA o n CPAP I'd recommend muscle rubs, heat; tylenol pm ok, massage would also help; see cospt- if not improving over next few weeks, would need mri neck. Related to Chronic left shoulder pain Their diabetes is fa irly well controlled, continue current medications, baby aspirin, recheck here with DM labs (bmp, albumin, hba1c, lipid panel) in 3-4 months; continue to work on diet/exercise. Check feet regularly; discussed yearly eye exam, offered vaccines. Avoid simple sugars, processed carbohydrates, sweetened beverages. on statin- doing well on this. Related to Hyperlipidemia associated with type 2 diabetes mellitus stable on cpap. Related to KIKA o n CPAP stable; renewed meds Related to Erectile dysfunction due to diseases classified elsewhere We discussed treatme nt plan, importance of controlling, risks if untreated. Medications well tolerated; exercise and low sodium diet reviewed. Safe ongoing blood pressure numbers 130-90/85-40. Call our office if top number 160-180 range, bottom 95-105 range for appointment. 210+/120+ needs action now. Recheck in office in 3-4 months. Avoid NSAIDS like ibuprofen, naproxen, high aspirin doses. Related to Hypertension associated with diabetes PSA has been good- s preet Tejeda- active surveillance. Related to History of prostate cancer Their diabetes is fa irly well controlled, continue current medications, baby aspirin, recheck here with DM labs (bmp, albumin, hba1c, lipid panel) in 3-4 months; continue to work on diet/exercise. Check feet regularly; discussed yearly eye exam, offered vaccines. Avoid simple sugars, processed carbohydrates, sweetened beverages. Related to Hyperlipidemia associated with type 2 diabetes mellitus stable - seeing onco logy regularly; still on antiandrogen treatments and finished definitive radiation therapy Related to Hx of prostatic malignancy stable on cpap. Related to KIKA o n CPAP about the same usage- Related to Tobacco consumption bp is finally well controlled. R elated to Hypertension associated with diabetes added chlorhexidine mouthwash today; continue working on getting in with dentist. Related to Gingival swelling Their diabetes is fa irly well controlled, continue current medications, baby aspirin, recheck here with DM labs (bmp, albumin, hba1c, lipid panel) in 3-4 months; continue to work on diet/exercise. Check feet regularly; discussed yearly eye exam, offered vaccines. Avoid simple sugars, processed carbohydrates, sweetened beverages. Related to Hyperlipidemia associated with type 2 diabetes mellitus he's done well- in c lose observation stage. Related to Hx of prostatic malignancy We discussed treatme nt plan, importance of controlling, risks if untreated. Medications well tolerated; exercise and low sodium diet reviewed. Safe ongoing blood pressure numbers 130-90/85-40. Call our office if top number 160-180 range, bottom 95-105 range for appointment. 210+/120+ needs action now. Recheck in office in 3-4 months. Avoid NSAIDS like ibuprofen, naproxen, high aspirin doses. Related to Hypertension associated with diabetes he's been smoking ci gars still regularly. Related to Tobacco consumption Their diabetes is fa irly well controlled, continue current medications, baby aspirin, recheck here with DM labs (bmp, albumin, hba1c, lipid panel) in 3-4 months; continue to work on diet/exercise. Check feet regularly; discussed yearly eye exam, offered vaccines. Avoid simple sugars, processed carbohydrates, sweetened beverages. Related to Erectile dysfunction associated with type 2 diabetes mellitus improved with bp control. 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 Related to KIKA o n CPAP Return in 1 year for Adult Exam with Dr. Wilhelm Related to Type 2 diabetes mellitus without complications Impression/Plan Related to Presb yopia Impression/Plan Related to Age-r elated nuclear cataract, bilateral Impression/Plan Related to Type 2 diabetes mellitus without complications see above. risks mod ified as best we can- he's considering a pacemaker. Related to Hypertrophic cardiomyopathy stay on eliquis- edu mcgowan arrange a 30 day event monitor to see if still having flutter/fib. seeing Dr. Leahy- considering a defibrillator for hcm. Related to Chronic anticoagulation eating much better Related to Hy perlipidemia associated with type 2 diabetes mellitus he's quit smoking co mpletely, doing well. Related to Tobacco consumption Not under great cont rol today- he's not taken his meds yet; We discussed treatment plan, importance of controlling, risks if untreated. Medications well tolerated; exercise and low sodium diet reviewed. Safe ongoing blood pressure numbers 130-90/85-40. Call our office if top number 160-180 range, bottom 95-105 range for appointment. 210+/120+ needs action now. Recheck in office in 3-4 months. Avoid NSAIDS like ibuprofen, naproxen, high aspirin doses. Related to Hypertension associated with diabetes Mr. Desouza diabet es is fairly well controlled, continue current medications, baby aspirin IF not taking eliquis, recheck here with DM labs (bmp, albumin, hba1c, lipid panel) in 3-4 months; continue to work on diet/exercise. Check feet regularly; discussed yearly eye exam, offered vaccines. Avoid simple sugars, processed carbohydrates, sweetened beverages. Related to Type 2 diabetes mellitus with other specified complication, without long-term current use of insulin reviewed- discussed reducing Rel ated to Tobacco consumption compliant with cpap Related to O SA on CPAP on calcium channel b locker and beta kiersten- adding digoxin- he does not want to go to the ER for cardioversion but understands he needs to have this fixed- high rate of recurrence will work on reducing alcohol and continue using cpap - go to ER if developing chest pain, worsening symptoms- refer benitez to log rafter- he likely needs ablation. he was recommended to take eliquis but is rather uncomfortable with it. will be on at least 81mg aspirin. Given that he's got this serious medical condition and will likely need to be missing work to go to appointments, get this ablation (hopefully not cardioversion as he's a bit scared of this prospect) and have time to recover, he may need to be out on medical leave for a while- we discussed this and I'd be happy to help with forms if needed. He'll still need knee surgery but that will have to wait until his heart issue is controlled. Reschedule pre-op with me Mervin (I'm out in July); he may need f/u with someone here between now and then. Related to Typical atrial flutter ekg-a flutter. rate controlled. discussed with dr villafuerte. will start eliquis. continue current blood pressure medications. follow up with pcp-- consider cardiology referral. er if any chest pain or shortness of breath. Related to Abnormal EKG Their diabetes is fa irly well controlled, continue current medications, baby aspirin, recheck here with DM labs (bmp, albumin, hba1c, lipid panel) in 3-4 months; continue to work on diet/exercise. Check feet regularly; discussed yearly eye exam, offered vaccines. Avoid simple sugars, processed carbohydrates, sweetened beverages. 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 Medications well tolerated; exercise and low sodium diet reviewed. Safe ongoing blood pressure numbers 130-90/85-40. Call our office if top number 160-180 range, bottom 95-105 range for appointment. 210+/120+ needs action now. Recheck in office in 3-4 months. Avoid NSAIDS like ibuprofen, naproxen, high aspirin doses. Related to Essential (primary) hypertension finished treatment- need to obtain notes. Related to Hx of prostatic malignancy Both knees, R worse than left. planning knee replacement soon. Related to Pain, joint, knee, right We gave patient a st eroid shot today; numbing medication will wear off in 1-2 hours and steroids will kick in within 6 hours or so, should last a minimum of 1 week or give ongoing relief; please call immediately with any concerns for infection, worsening symptoms. OK to get up to 3 of these per year without much worry for thinning bones or causing diabetes/sugar abnormalities/weight gain. Related to Arthritis of both knees he's done with most treatment- will have close f/u still. Related to Cancer of prostate with low recurrence risk (stage T1-2a and Maria Isabel < 7 and PSA < 10) stable presently- on cpap - has not been seen by pulmonary in a long time; overnight pulse ox pending. Related to KIKA on CPAP Their diabetes is fa irly well controlled, continue current medications, baby aspirin, recheck here with DM labs (bmp, albumin, hba1c, lipid panel) in 3-4 months; continue to work on diet/exercise. Check feet regularly; discussed yearly eye exam, offered vaccines. Avoid simple sugars, processed carbohydrates, sweetened beverages. Related to Hyperlipidemia associated with type 2 diabetes mellitus We discussed treatme nt plan, importance of controlling, risks if untreated. Medications well tolerated; exercise and low sodium diet reviewed. Safe ongoing blood pressure numbers 130-90/85-40. Call our office if top number 160-180 range, bottom 95-105 range for appointment. 210+/120+ needs action now. Recheck in office in 3-4 months. Avoid NSAIDS like ibuprofen, naproxen, high aspirin doses. Related to Hypertension associated with diabetes refer to Dr. Martinez- he's very interested in the radiation pellets for treatment rather than robotic removal (but he does definitely want a robotic removal if he has to have removed); he's been seeing Dr. Morrison and at the moment is still digesting this information- he'll see Dr. Fraga soon as well so we'll copy him on this information. Related to Cancer of prostate with low recurrence risk (stage T1-2a and Maria Isabel < 7 and PSA < 10) he should get the bi opsy and see what's happening then go from there. Related to Prostate nodule using cpap- we can do supplies. Related to KIKA on CPAP he's in precontemplative mode no w. Related to Tobacco consumption renewed meds earlier this year. Related to Erectile dysfunction associated with type 2 diabetes mellitus stable. Related to Hyper lipidemia, unspecified We discussed treatme nt plan, importance of controlling, risks if untreated. Medications well tolerated; exercise and low sodium diet reviewed. Safe ongoing blood pressure numbers 130-90/85-40. Call our office if top number 160-180 range, bottom 95-105 range for appointment. 210+/120+ needs action now. Recheck in office in 3-4 months. Avoid NSAIDS like ibuprofen, naproxen, high aspirin doses. Related to Hypertension associated with diabetes LDL a little highASC VD risk ~ 25%. After discussion with pt we will start baby aspirin daily and recheck labs in 3 months. Likely will need to start a cholesterol medicine at that point anyway, but may need a smaller dose. Related to Hyperlipidemia associated with type 2 diabetes mellitus Discussed that the r ecent increase because of COVID might be too much. Might affect his A1c and cholesterol levels, along with future complications to his kidneys and liver. I recommend cutting back, goal of 2 alcoholic beverages / day more or less, and trying to take 1 day off from alcohol per week. F/U 3 months to talk about diet, exercise, weight, alcohol Related to Excessive drinking of alcohol No longer on metform in, A1c 6.1%Continue with healthy diet, exerciseF/U 3 months for recheck.Creatinine stableContinue with good hydration (upwards of 70 oz / day) Recheck every 6 mo to 1 yr Related to Type 2 diabetes mellitus with other kidney complication BP under control on ARB, nifedipine and BB-Continue Related to Hypertension associated with diabetes keep clean/dry- use warm compresses; use doxycycline if worsening. Related to Cellulitis of external cheek, right We discussed treatme nt plan, importance of controlling, risks if untreated. Medications well tolerated; exercise and low sodium diet reviewed. Safe ongoing blood pressure numbers 130-90/85-40. Call our office if top number 160-180 range, bottom 95-105 range for appointment. 210+/120+ needs action now. Recheck in office in 3-4 months. Avoid NSAIDS like ibuprofen, naproxen, high aspirin doses. Related to Hypertension associated with diabetes improved with better bp control, compliance with meds. 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 Relat ed to KIKA on CPAP Their diabetes is fa irly well controlled, continue current medications, baby aspirin, recheck here with DM labs (bmp, albumin, hba1c, lipid panel) in 3-4 months; continue to work on diet/exercise. Check feet regularly; discussed yearly eye exam, offered vaccines. Avoid simple sugars, processed carbohydrates, sweetened beverages. Related to Hyperlipidemia associated with type 2 diabetes mellitus he may have desloge send us cpap supply order Related to KIKA on CPAP see above. Related to Depen dence on other enabling machines and devices bp in general is imp roved on his current 4 meds- well tolerated- bp may be up today b/c he's on meloxicam for knee pain, not using cpap real regularly Related to Hypertension associated with diabetes stable Related to Left anterior knee pain he's been fairly wel l controlled on this. Related to Hyperlipidemia associated with type 2 diabetes mellitus much better Related to Pain in left knee much improved after joint effusion removed. Related to Pain in right knee stable Related to Hyper lipidemia associated with type 2 diabetes mellitus Their diabetes is fa irly well controlled, continue current medications, baby aspirin, recheck here with DM labs (bmp, albumin, hba1c, lipid panel) in 3-4 months; continue to work on diet/exercise. Check feet regularly; discussed yearly eye exam, offered vaccines. Avoid simple sugars, processed carbohydrates, sweetened beverages. Related to Type 2 diabetes mellitus without complications We discussed treatme nt plan, importance of controlling, risks if untreated. Medications well tolerated; exercise and low sodium diet reviewed. Safe ongoing blood pressure numbers 130-90/85-40. Call our office if top number 160-180 range, bottom 95-105 range for appointment. 210+/120+ needs action now. Recheck in office in 3-4 months. Avoid NSAIDS like ibuprofen, naproxen, high aspirin doses. Related to Hypertension associated with diabetes We gave patient a st eroid shot today; numbing medication will wear off in 1-2 hours and steroids will kick in within 6 hours or so, should last a minimum of 1 week or give ongoing relief; please call immediately with any concerns for infection, worsening symptoms. 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 Related to Arthritis of left knee bit worse but we'll recheck labs in 3 mos. 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 Related to Hypertension associated with diabetes needs cpap supplies- he's off cpap due to not having supplies and certainly needs as bp very high- will get to him benitez. Related to Dependence on other enabling machines and devices avoid tobacco whenev er/wherever possible. Related to Tobacco consumption due labs. Related to Nephr osis in diabetes mellitus due for labs. Related to Hyper lipidemia associated with type 2 diabetes mellitus bp extremely high up on arrival today- he took losartan 100mg and labetalol 200mg at 2pm today and he's been on the labetaolol only once daily as he didn't know he was supposed to take twice daily; gave clonidine today only due to hypertensive urgency to bring numbers down.- go home and rest today- take 200mg total labetalol when he gets home and then twice daily- recheck here in 1- 2 weeks with nurse- if still elevated we'd change to 300mg twice daily or add another agent Related to Hypertensive urgency still not at goal; d iaalextes numbers look great- but bp up- stop amlodipine and keep on losartan we added labetalol 100mg twice daily- recheck in 6-8 weeks. Related to Hypertension associated with diabetes improved quite a bit Related to Hyperlipidemia, unspecified reviewed- discussed reducing Rel ated to Tobacco consumption renewed sildenafil Related to Er ectile dysfunction associated with type 2 diabetes mellitus -Tingling/numb feeli ng right shoulder/upper arm and into forearm intermittently. Had tingling/numb feeling down the right leg earlier this morning and again in the right calf during the exam.-Discussed case with Dr. Rossi...with these symptoms along with headache and blood pressure at this high level, concern for stroke type symptoms. He is agreeable to go to the ER, but refuses ambulance transport. He's calling his now and states he will drive to the [facility] ER. Advised to stop along the way if further symptoms develop and DIAL 911! Related to Paresthesias -Uncontrolled. BP 18 2/106. Hasn't taken blood pressure medications today. Related to Essential (primary) hypertension stable. Related to Hyper lipidemia, unspecified back off of this. Related to Tob acco consumption Hypertension uncontr olled; recommend keep up low sodium diet; daily exercise; work on stress reduction and recheck once or twice per week over next few weeks; needs bmp, ua, microalbumin before next visit. Recheck here in 3-4 months. Related to Hypertension associated with diabetes stable. Related to Erect ile dysfunction associated with type 2 diabetes mellitus cut back on the cigars. Related to Tobacco consumption hba1c is ok- for thi s I'd recommend starting metformin again- take daily; slow down on alcohol intake. Related to Type 2 diabetes mellitus with other specified complication, without long-term current use of insulin he's been stable. Related to Hyp erlipidemia, unspecified Hypertension uncontr olled; recommend keep up low sodium diet; daily exercise; work on stress reduction and recheck once or twice per week over next few weeks; needs bmp, ua, microalbumin before next visit. Recheck here in 3-4 months. slow down on alcohol intake Related to Hypertension associated with diabetes printed rx for silde nafil today- use 20-80mg 1/2 hour before intercourse- call with any chest pain or prolonged/painful erections. Related to Erectile dysfunction due to diseases classified elsewhere stop metoprolol- may be a factor in weight gain- discussed exercisign on elliptical again and working on weight- he'll keep on amlodipine and start on losartan as well. call with bp above 150/90. Related to Hypertension associated with diabetes work on quitting- le t us know if we can help in any way Related to Tobacco consumption stable on cpap. Related to KIKA o n CPAP stable presently Related to Hype rlipidemia associated with type 2 diabetes mellitus his breathing has be en doing good lately Related to Mild asthma without complication, unspecified whether persistent We discussed treatme nt plan, importance of controlling, risks if untreated. Medications well tolerated; exercise and low sodium diet reviewed. Safe ongoing blood pressure numbers 130-90/85-40. Call our office if top number 160-180 range, bottom 95-105 range for appointment. 210+/120+ needs action now. Recheck in office in 3-4 months. Related to Hypertension associated with diabetes diabetes fairly well controlled, continue current medications, baby aspirin, recheck here with DM labs in 3-4 months; continue to work on diet/exercise. check feet regularly; discussed yearly eye exam, offered vaccines. Related to Type 2 diabetes mellitus with other specified complication, without long-term current use of insulin stable. Related to Hyper lipidemia, unspecified see above. Related to Other obstructive and reflux uropathy labs look fantastic this benjy arredondo Related to Hyperlipidemia associated with type 2 diabetes mellitus We discussed treatme nt plan, importance of controlling, risks if untreated. Medications well tolerated; exercise and low sodium diet reviewed. Safe ongoing blood pressure numbers 130-90/85-40. Call our office if top number 160-180 range, bottom 95-105 range for appointment. 210+/120+ needs action now. Recheck in office in 3-4 months. diabetes has been very well controlled- DM labs in 3 months AND PSA. Related to Hypertension associated with diabetes he's been on his cpa p machine; out of distilled water. Related to KIKA on CPAP ultrasound pending- psa has come down. Related to BPH (benign prostatic hypertrophy) with urinary obstruction keep on current medications. Rel ated to Hyperlipidemia, unspecified We discussed treatme nt plan, importance of controlling, risks if untreated. Medications well tolerated; exercise and low sodium diet reviewed. Safe ongoing blood pressure numbers 130-90/85-40. Call our office if top number 160-180 range, bottom 95-105 range for appointment. 210+/120+ needs action now. Recheck in office in 3-4 months. Related to Essential (primary) hypertension see above. Related to Hyper tension associated with diabetes stop smoking and sta y quit if at all possible. Related to Tobacco consumption diabetes fairly well controlled, continue current medications, baby aspirin, recheck here with DM AND PSA labs in 3-4 months; continue to work on diet/exercise. check feet regularly; discussed yearly eye exam, offered vaccines. 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 Related to Abnormal CXR symptoms of pneumoni a, clinically not improving on Augmentin. Stop Augmentin change to Levofloxacin 500 mg 1 week. Work note given. Call if not improving as expected Related to Cough improved with iv flu ids. would hold amlopidine/benazapril dose tomorrow. check bp ([facility] or fire stations, etc) if still low (<120/80) hold the dose for Wed as well. have rechecked at follow up. Related to Hypotension, unspecified hypotension type flush sinuses with s tripp 2-3 times a day. otc meds as needed for pain and fever. augmentin twice a day until gone. tessalon for cough. recheck with pcp in 2-3 days--sooner if worse. Related to Cough We discussed treatme nt plan, importance of controlling, risks if untreated. Medications well tolerated; exercise and low sodium diet reviewed. Safe ongoing blood pressure numbers 130-90/85-40. Call our office if top number 160-180 range, bottom 95-105 range for appointment. 210+/120+ needs action now. Recheck in office in 3-4 months. Related to Essential (primary) hypertension diabetes fairly well controlled, continue current medications, baby aspirin, recheck here with DM labs in 3-4 months; continue to work on diet/exercise. check feet regularly; discussed yearly eye exam, offered vaccines. 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 Related to Asthma, unspecified diabetes fairly well controlled, continue current medications, baby aspirin, recheck here with DM labs PLUS PSA in 3-4 months; continue to work on diet/exercise. check feet regularly; discussed yearly eye exam, offered vaccines. Related to Diabetes mellitus with renal manifestations, type II or unspecified type, not stated as uncontrolled We discussed treatme nt plan, importance of controlling, risks if untreated. Medications well tolerated; exercise and low sodium diet reviewed. Safe ongoing blood pressure numbers 130-90/85-40. Call our office if top number 160-180 range, bottom 95-105 range for appointment. 210+/120+ needs action now. had horrible reaction to hctz in past; work on weight loss Related to Unspecified essential hypertension his status on diabet es is largely unknown- recommend we check labs and have him return in 3 months with labs 1 week prior- for this reason he'd probably do best with a steroid shot into the joint rather than oral steroids or nsaids if pain left knee persists. Related to Diabetes mellitus without mention of complication, type II or unspecified type, not stated as uncontrolled stable. Related to Other and unspecified hyperlipidemia keep wrapped- gave h andout on this; effusion posteriorly- dorinda or keep up the sleeve he has on today. recheck and consider steroid shot if persisting. Related to Left knee pain he's off of one of h is medications today- recommend restart this and avoid adding salt to foods and eating salty foods. Related to Unspecified essential hypertension due for labs. Related to Nephr otic syndrome in diseases classified elsewhere keep on cpap machine. Related to Unspecified sleep apnea normal exam and lewis ls stable; preventive medicine reviewed and up to date. reviewed vaccine, social, past medical, family history and updated. Return in approximately 1 year for repeat preventive exam. Related to ROUTINE MEDICAL EXAM see above; may need adjustment- 40per day benicar? Related to Unspecified essential hypertension will check labs and assess. pt unaware of this. 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 due for labs; Related to Diabetes mellitus stable. will check labs. Related to Hyperlipidemia offered flu shot; ga ve pneumovax, tdap Related to Asthma work on decreasing t his- it would help. Related to Tobacco consumption stable; sees Dr Berry guevara for this; compliant on cpap. Related to KIKA on CPAP stable; keep up meto prolol; benicar, lotrel. Related to Hypertension associated with diabetes vaccine info Related to Nephr osis in diabetes mellitus Assessments Type Assessment Date No Information Patient Care Teams Name Effective Dates (start - stop) Status Members No Information
--- NOTE | ~2025-07-28 | MR_ITS ---
EXAMINATION: MR BRAIN WITHOUT AND WITH CONTRAST CLINICAL INFORMATION: F09. 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 COMPARISON: February 08, 2024 TECHNIQUE: Multiplanar, multisequence MRI of the brain was obtained before and after the intravenous administration of 10.0 mL gadolinium based (Gadavist) without reported immediate complications.. FINDINGS: No restricted diffusion. No acute intracranial hemorrhage, mass effect, midline shift, hydrocephalus or herniation. Hardy-white matter differentiation is normal. Posterior cranial fossa contents demonstrated no signal abnormality or mass effect. No abnormal enhancement within the intra-axial or the extra-axial compartment of the cranium. Craniocervical junction demonstrates normal position of the cerebellar tonsils. Nonspecific, a few scattered subcortical white matter T2 FLAIR signal, left frontal lobe. Sellar/suprasellar region is normal. Flow-void signal within the main cerebral vessels is normal. Prominence of the extra-axial CSF spaces cerebral sulci in keeping with mild central volume loss. MR/MR head/brain wo/w con IMPRESSION: No acute brain abnormality. No abnormal enhancement. Electronically signed by: Esdras Flores MD 07/30/2025 11:31 AM JOE
--- OUTSIDE RECORDS SUMMARY | 2025-07-28 12:49 | XMS_ITS | Patient Health Record ---
Author Organization [facility] [address] Address [address] [place] [address] Care Team Providers Care Piano Technician Name Role Phone RIAN SHAVER Unavailable [phone] Allergies No Known Allergies Results Component Value Reference Range Flag Notes Hemoglobin [id number] Reviewed date:05/03/2025 08:15:24 AM Interpretation: Performing Lab:[facility], [address] [place] [address], Phone - [phone], Director - MDJodry Notes/Report: Hemoglobin A1c 6.0 4.8-5.6 % H . Prediabetes: 5.7 - 6.4 Diabetes: >6.4 Glycemic control for adults with diabetes: <7.0 Vitamin [id number] Reviewed date:05/03/2025 08:15:40 AM Interpretation: Performing Lab:[facility], [address] [facility], Phone - [phone], Director - MDJodry Notes/Report: Vitamin B12 410 440-4741 pg/mL Urinalysis, Complete-[id number] Reviewed date:05/03/2025 08:15:40 AM Interpretation: Performing Lab:[facility], [address] [facility], Phone - [phone], Director - MDJodry Notes/Report: Specific [place] 1.024 1.005-1.030 pH 6.0 5.0-7.5 Urine-Color Yellow Yellow Appearance Clear Clear WBC Esterase Negative Negative Protein Trace Negative/Trace Glucose Negative Negative Ketones Trace Negative A Occult Blood Negative Negative Bilirubin Negative Negative Urobilinogen,Semi-Qn 1.0 0.2-1.0 mg/dL Nitrite, Urine Negative Negative Microscopic Examination Microscopic foll ows if indicated. Microscopic Examination See below: Microscopic was indicated and was performed. WBC None seen 0 - 5 /hpf RBC 0-2 0 - 2 /hpf Epithelial Cells (non renal) None seen 0 - 10 /hpf Casts None seen None seen /lpf Bacteria None seen None seen/Few [id number] Reviewed date:05/03/2025 08:15:40 AM Interpretation: Performing Lab:[facility], Phone - [phone], Director - MDJodry Notes/Report: TSH 5.660 0.450-4.500 uIU/mL H CBC With Differential/Platel et-[id number] Reviewed date:05/03/2025 08:15:40 AM Interpretation: Performing Lab:[facility] [place], [address] [place] [address], [place], Phone - [phone], Director - MDJodry Notes/Report: WBC 6.2 3.4-10.8 [...] % Immature Grans (Abs) 0.0 0.0-0.1 x10E3/uL Testosterone, Total, LC/MS-0 85030 Reviewed date:05/03/2025 08:15:40 AM Interpretation: Performing Lab:[facility] [address] [place] [address], Phone - [phone], Director - Isidro Notes/Report: Testosterone, Total, LC/MS 133 L This test was developed and its performance characteristics determined by [facility]. It has not been cleared or approved by the Food and Drug Administration. Reference Range: Adult Males >18 years 264 - 916 This [facility] LC/MS-MS method is currently certified by the CDC Hormone Standardization Program (HoST). Adult male reference interval is based on a population of healthy nonobese males (BMI <30) between 19 and 39 years old. Andre et.al. JCEM 2017,102;6719-6414 PMID: [id number]. Sex Horm Binding Glob, Serum -[id number] Reviewed date:05/03/2025 08:15:40 AM Interpretation: Performing Lab:[facility], [facility], Phone - [phone], Director - Isidro Notes/Report: Sex Horm Binding Glob, Serum 24.4 19.3-76.4 nmol/L Lipid Panel-[id number] Reviewed date:05/03/2025 08:15:40 AM Interpretation: Performing Lab:[facility], [facility], Phone - [phone], Director - Isidro Notes/Report: Cholesterol, Total 173 100-199 mg/dL Triglycerides 238 0-149 mg/dL H HDL Cholesterol 36 >39 mg/dL L VLDL Cholesterol Lolita 41 5-40 mg/dL H LDL Chol Calc (NIH) 96 0-99 mg/dL Comp. Metabolic Panel (14)-3 49868 Reviewed date:05/03/2025 08:15:40 AM Interpretation: Performing Lab:[facility] [place], [facility], Phone - [phone], Director - Isidro Notes/Report: Glucose 105 70-99 mg/dL H BUN 14 8-27 mg/dL Creatinine 1.00 0.76-1.27 [...] 0-40 IU/L ALT (SGPT) 20 0-44 IU/L CT ABDOMEN PELVIS WO AND W C ONTRAST Reviewed date:06/21/2025 11:35:36 AM Interpretation: Performing Lab: Notes/Report: Note See Note [facility], a member of [employer] Patient Name: AMNA FIELD Date of : 1960 Reason for Exam: MALIGNANT NEOPLASM OF UNSPECIFIED KIDNEY, EXCEPT RENAL PELVIS Exam Date: 06/20/2025 [id number] EST Report Status: Final Ordering Provider: GREY BROWN PCP: ASHIA TOUSSAINT EXAMINATION: CT ABDOMEN AND PELVI S WITHOUT AND WITH CONTRAST CLINICAL INFORMATION: Malignant neoplasm o f kidney. Previous report indicates history of renal cell carcinoma post cryoablation. COMPARISON: Portions of previous CT 05/30/24 TECHNIQUE: Multidetector CT. Helical examination of the abdomen and pelvis. CONTRAST: The exam w as performed before and after the IV administration of contrast. Examination of the abdomen performed before contrast. Examination of the abdomen performed during the arterial phase. Examination of the abdomen and pelvis performed during the portal venous phase. DLP: 3113 mGy-cm Imaging before and after the IV administration of contrast. Dose optimization wa s performed including the use of low-dose iterative reconstruction technique with automatic exposure control based on patient size. Amount of contrast: 90 mL Type of contrast: Isovue-370 Volume of contrast discarded: 0 mL FINDINGS: KIDNEYS: RENAL SIZE: The right renal yris th: At least 10.5 cm in greatest length The left renal lengt h: At least 10.8 cm in greatest length RENAL CONTOUR: There is a contour abnormality posteromedial right kidney at the interpolar region which likely correlates to a site of previous cryoablation. CALCULI: There are no opaque urinary calculi. NEPHROGRAM: The nephrograms are symmetric other than the presumed cryoablation site. COLLECTING SYSTEM CALIBER: There is no dilation of the urinary collecting system on either side. MASSES: There are no suspici ous renal masses. There is no suspicious enhancement at the cryoablation site to suggest residual or recurrent disease. No new suspicious abnormality. UROTHELIUM: There is no urotheli al mass or focal area of thickening. Imaging performed prior to the excretory phase. VASCULATURE: There are 2 patent right renal arteries. There is a single patent left renal artery. There is a normal variant retroaortic left renal vein. There appear to be 2 separate left renal veins. The central aspect of the renal veins enhance bilaterally. There are 2 right renal veins. URINARY BLADDER: The bladder is not w ell distended. No focal abnormality. ADRENAL GLANDS: With in normal limits PELVIC VISCERA: No suspicious abnormality. LIVER: There is a circumscribed fluid attenuating nonenhancing 1.4 cm mass at the periphery of hepatic segment 5 which is likely a cyst. This is unchanged since at least 05/30/24. There are unchanged small cysts in hepatic segment IVb and hepatic segment 7. No new suspicious fo lolita liver lesion. BILIARY TRACT: No opaque gallstone or biliary dilation SPLEEN: Within fahad l limits PANCREAS: Normal GASTROINTESTINAL TRA CT: No localized colonic wall thickening. Normal variant position of the cecum slightly to left of midline in the pelvis. No localized fat stranding. No significant small bowel dilation. There are a few nonspecific mesenteric lymph nodes with some mild fat stranding. These are likely unchanged. There may be a minimal hiatal hernia. There is a diverticulum in the duodenum. ABDOMINAL WALL: No significant hernia is appreciated. LYMPHOVASCULAR STRUCTURES AND FLUID: There is no abdominal aortic aneurysm. There are no measurably enlarged lymph nodes. There is no free intraperitoneal fluid. The portal vein enhances. VISUALIZED LOWER SUSAN ST: No suspicious abnormality. There may be a few tiny granulomata in the posterior left lower lobe unchanged. MUSCULOSKELETAL: No acute or suspicious osseous abnormality. IMPRESSION: No evidence of resid ual or recurrent disease at the site of prior cryoablation. No new suspicious abnormality. -------- FINAL REPOR T -------- Dictated By: Cas Dawson Dictated Date: 06/20/2025 12:47 ET Assigned Physician: Cas Boyd Reviewed and Electronically Signed By: Cas Boyd Signed Date: 13:12 ET Workstation ID: [id number] Transcribed By: Self Edit Transcribed Date: 06/20/2025 12:47 ET XR CHEST 2 VIEWS Reviewed date:06/21/2025 11:47:27 AM Interpretation: Performing Lab: Notes/Report: Note See Note [facility], a member of [employer] Patient Name: AMNA FIELD Date of : 1960 Reason for Exam: MALIGNANT NEOPLASM OF UNSPECIFIED KIDNEY, EXCEPT RENAL PELVIS Exam Date: 06/20/2025 [id number] EST Report Status: Final Ordering Provider: GREY BROWN PCP: ASHIA TOUSSAINT EXAMINATION: CHEST CLINICAL INFORMATION: Malignant neoplasm o f kidney COMPARISON: Frontal view 05/17/22 TECHNIQUE: 2 views of the chest FINDINGS: There is slight tortuosity aorta. The cardiac size is within normal limits. There is no definite hilar mass or edema. The medial right upp er chest is limited due to the overlying bone and cartilage. No pleural fluid or pneumothorax No suspicious focal bony lesion. IMPRESSION: No acute chest disea se. Specifically no evidence of pulmonary metastatic disease -------- FINAL REPOR T -------- Dictated By: Cas Dawson Dictated Date: 06/20/2025 12:44 ET Assigned Physician: Cas Boyd Reviewed and Electronically Signed By: Cas Boyd Signed Date: 12:47 ET Workstation ID: [id number] Transcribed By: Self Edit Transcribed Date: 06/20/2025 12:44 ET Reason For Referral No Information Medications Medication SIG (Take, Route, Frequency, Duration) Notes Start Date End Date Status Ammonium Lactate 12 % Cream 1 applicatio n Externally Twice a day; Duration: 30 days Active Lac-Hydrin Five 5 % Lotion 1 application Externally Twice a day; Duration: 30 days Active amLODIPine Besylate 5 MG Tablet TAKE 1 TABLET BY MOUTH EVERY DAY; Duration: 90 Active Escitalopram Oxalate 20 MG Tablet 1 tablet Orally Once a day; Duration: 30 day(s) 06/26/2025 Active Albuterol Sulfate HFA 108 (9 0 Base) MCG/ACT Aerosol Solution 2 puff as needed Inhalation every 4 hrs; Duration: 30 days As needed shortness of breath 12/08/2023 Active Simvastatin 20 MG Tablet TAKE 1 TABLET B Y MOUTH EVERY DAY IN THE EVENING FOR 90 DAYS; Duration: 90 Active Qulipta 30 MG Tablet 1 tablet Orally Onc e a day; Duration: 30 days 04/06/2024 Active Escitalopram Oxalate 5 MG Tablet TAKE 1 TABLET BY MOUTH EVERY DAY; Duration: 90 Active Betamethasone Dipropionate 0.05 % Cream 1 application Externally Once a day; Duration: 30 days 04/06/2024 Active Furosemide 20 MG Tablet TAKE 1 TABLET BY MOUTH EVERY DAY FOR 30 DAYS; Duration: 90 Active Losartan Potassium 100 MG Tablet TAKE 1 TABLET BY MOUTH EVERY DAY; Duration: 90 Active Testosterone Cypionate 100 MG/ML Solution 1 mL Intramuscular weekly; Duration: 30 days 06/26/2025 Active Emgality 120 MG/ML Solution Auto-injector as directed Subcutaneous Active Lansoprazole 30 MG Capsule Delayed Release 1 CAPSULE BEFORE A MEAL Orally twice a day; Duration: 90 days Active Albuterol Sulfate (2.5 MG/3ML) 0.083% Nebulization Solution 3 ml as needed Inhalation every 6 hrs; Duration: 30 day(s) 12/16/2021 Active hydroCHLOROthiazide 25 MG Tablet TAKE 1 TABLET BY MOUTH EVERY DAY IN THE MORNING FOR 90 DAYS; Duration: 90 Active Social History Tobacco Use: Social History Observation Description Date Details (start date - stop date) Never Smoker NA - NA Social History Tobacco Use: Social Info Question Answer Notes Tobacco Use/Smoking Are you a nonsmoker Section Notes: Nonsmoker [...] Status W/U Status Risk Notes Problem Hypothyroidism (05900404) Hypothyroidism, unspecified (E03.9) Active confirmed Problem Testicular hypofunction (852457557) Testicular hypofunction (E29.1) Active confirmed Problem Testicular dysfunction (92260996) Testicular dysfunction, unspecified (E29.9) Active confirmed Problem Vitamin D deficiency (20654376) Vitamin D deficiency, unspecified (E55.9) Active confirmed Problem Generalized anxiety disorder (85063213) Generalized anxiety disorder (F41.1) Active confirmed Problem Essential hypertension (21049209) Essential (primary) hypertension (I10) Active confirmed Problem Erectile dysfunction (disorder) (048349699) Other male erectile dysfunction (N52.8) Active confirmed Problem Diabetes mellitus screening (416207195) Encounter for screening for diabetes mellitus (Z13.1) Active confirmed Problem Prediabetes (748272907) Prediabetes (R73.03) Active confirmed Problem Renal cyst (609127724) Renal cyst (N28.1) Active confirmed Problem Hyperlipidaemia (08461657) Hyperlipidemia, unspecified hyperlipidemia type (E78.5) Active confirmed Problem Adult health examination (428322268) Adult general medical exam (Z00.00) Active confirmed Problem Hypothyroidism (15668176) Hypothyroidism, unspecified type (E03.9) Active confirmed Problem Annual health maintenance examination (37362895) Annual physical exam (Z00.00) Active confirmed Problem Insomnia (138965551) Insomnia, unspecified type (G47.00) Active confirmed Problem Dyspnea (463559884) SOB (shortne ss of breath) (R06.02) Active confirmed Problem Vitamin D deficiency (75344058) Vitamin D deficiency (E55.9) Active confirmed Problem Male hypogonadism (92143354) Hypogonadism in male (E29.1) Active confirmed Problem Accelerated essential hypertension (26268464) Accelerated essential hypertension (I10) Active confirmed Problem Diabetes mellitus screening (546896923) Diabetes mellitus screening (Z13.1) Active confirmed Problem COVID-19 (444659536) COVID-19 (U07.1) Active confirmed Problem Agitation (87533993) Agitation (R45.1) Active confirmed Problem Gastroesophageal reflux disease (838243016) Gastroesophageal reflux disease, unspecified whether esophagitis present (K21.9) Active confirmed Problem Eczema (66769890) Eczema, unspecified type (L30.9) Active confirmed Problem Asthenia (22217099) Asthenia (R53.1) Active con firmed Problem Vitamin B>12< deficiency anaemia (20473099) Anemia due to vitamin B12 deficiency, unspecified B12 deficiency type (D51.9) Active confirmed Problem Primary hypertension (74128669) Primary hypertension (I10) Active confirmed Problem Moderate recurrent major depression (17901368) Moderate episode of recurrent major depressive disorder (F33.1) Active confirmed Problem 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) Active confirmed Problem Major depression, single episode (53531449) Current episode of major depressive disorder without prior episode, unspecified depression episode severity (F32.9) Active confirmed Problem Traumatic brain injury with no loss of consciousness (disorder) (718574984) Traumatic brain injury, without loss of consciousness, initial encounter (S06.9X0A) Active confirmed Problem Primary malignant neoplasm of kidney (70834622) Renal cell carcinoma, unspecified laterality (C64.9) Active confirmed Problem Cough (finding) (58019499) Cough, unspecified type (R05.9) Active confirmed Problem Elevated fasting lipid profile (437802383266) Elevated lipids (E78.5) Active confirmed Problem Screening for malignant neoplasm of prostate (324754643) Encounter for prostate cancer screening (Z12.5) Active confirmed Problem Acute hypokalemia (06573479) Acute hypokalemia (E87.6) Active confirmed Vital Signs Heart Rate 71 /min 06/26/2025 Oximetry 95 % 06/26/2025 Blood pressure diastolic 88 mm Hg 06/26/2025 Height 70 in 06/26/2025 Blood pressure systolic 118 mm Hg 06/26/2025 Weight 226.6 lbs 06/26/2025 BMI 32.51 kg/m2 06/26/2025 Encounters Encounter Location Date Provider Diagnosis [facility] [address] [place] [address] 09/26/2024 RIAN LIMAA Shortness of breath R06.02 ; Annual physical exam Z00.00 ; Essential (primary) hypertension I10 ; Hypogonadism in male E29.1 ; Traumatic brain injury, without loss of consciousness, initial encounter S06.9X0A ; Current episode of major depressive disorder without prior episode, unspecified depression episode severity F32.9 and B12 deficiency E53.8 [facility] [address] [place] [address] 01/23/2025 RIAN CHHAYA Essential (primary) hypertension I10 ; Traumatic brain injury, without loss of consciousness, initial encounter S06.9X0A ; Hypogonadism in male E29.1 ; Current episode of major depressive disorder without prior episode, unspecified depression episode severity F32.9 ; B12 deficiency E53.8 and Encounter for examination of blood pressure without abnormal findings Z01.[address] [address] 04/24/2025 RIAN CHHAYA Essential (primary) hypertension I10 ; Traumatic brain injury, without loss of consciousness, initial encounter S06.9X0A ; Hypogonadism in male E29.1 ; Current episode of major depressive disorder without prior episode, unspecified depression episode severity F32.9 ; B12 deficiency E53.8 and Encounter for examination of blood pressure without abnormal findings Z01.[address] [address] 06/26/2025 RIAN CHHAYA Essential (primary) hypertension I10 ; Traumatic brain injury, without loss of consciousness, initial encounter S06.9X0A ; Hypogonadism in male E29.1 ; Current episode of major depressive disorder without prior episode, unspecified depression episode severity F32.9 ; B12 deficiency E53.8 and Encounter for examination of blood pressure without abnormal findings Z01.30 [facility] [address] [address] 09/26/2024 RIAN CHHAYA [facility] [address] [facility] [address] [place] [address] 01/26/2025 RIAN CHHAYA [facility] [address] [place] [address] 04/25/2025 RIAN LIMAA [facility] [address] [place] [address] 05/21/2025 RIAN LIMAA [facility] [address] [facility] [address] [place] [address] 06/18/[address]IAN [address] [facility] [address] [place] [address] 06/26/2025 RIAN SHAVER Assessments Encounter Date Diagnosis (ICD Code) Assessment Notes Treatment Notes Treatment Clinical Notes Section Notes 09/26/2024 Shortness of breath (ICD-10 - R06.02) [...] log exercise and discussed fitness Apps like Quanti[employer]ense which can help keep log off calories [...] Dictation was accomplished with the use of [employer] voice recognition software, prone to medical misidentifications [...] log exercise and discussed fitness Apps like [employer] which can help keep log off calories [...] Dictation was accomplished with the use of [employer] voice recognition software, prone to medical misidentifications [...] Recommend group therapy/support groups. Consider refer to [facility] Case discussed with collaborating physician Dena Toussaint who reviewed the assessment and plan. Chart, medications, labs, vital signs reviewed. Dictation was accomplished with the use of [employer] voice recognition software, prone to medical misidentifications [...] Recommend group therapy/support groups. Consider refer to [facility] Case discussed with collaborating physician Dena Toussaint who reviewed the assessment and plan. Chart, medications, labs, vital signs reviewed. Dictation was accomplished with the use of [employer] voice recognition software, prone to medical misidentifications [...] Recommend group therapy/support groups. Consider refer to [facility]. Will reach out of Preeti Zarate. Pt hsa been losing balance more. COnsider repeat brain imaging. # Balance issues. Orthostatics overall unremarkbale. No carotid artery bruits. Total time spent with patient was 45 minutes, with over half being [id number]-yx-[id number] time. Case discussed with collaborating physician Dena Toussaint who reviewed the assessment and plan. Chart, medications, labs, vital signs reviewed. Dictation was accomplished with the use of [employer] voice recognition software, prone to medical misidentifications [...] Recommend group therapy/support groups. Consider refer to [facility]. Will reach out of [facility]. Pt hsa been losing balance more. COnsider repeat brain imaging. # Balance issues. Orthostatics overall unremarkbale. No carotid artery bruits. Total time spent with patient was 45 minutes, with over half being wbgx-vu-roif time. Case discussed with collaborating physician Dena Toussaint who reviewed the assessment and plan. Chart, medications, labs, vital signs reviewed. Dictation was accomplished with the use of [employer] voice recognition software, prone to medical misidentifications and grammatical errors. This is unintentional and the practitioner does try to identify and correct these, but some could still be present. Please do not hesitate to contact practitioner for clarification. All questions answered to patients satisfaction. Patient verbalized understanding of diagnosis and treatments explained. To call sooner prior to next visit it any questions/concerns arise. 06/26/2025 Essential (primary) hypertension (ICD-10 - I10) #Hypertension: Compliant with amlodipine and losartan. BP well controlled. # Testosterone- was previously on Xyosted, but cannot afford. Recheck CBC and testoserone. # TBI. Ongoing issue, reports not getting better. Consider Aricept? Also consider treating depression. Recommend group therapy/support groups. Consider refer to [facility]. Will reach out of [facility]. Pt hsa been losing balance more. COnsider repeat brain imaging. # Balance issues. Orthostatics overall unremarkbale. No carotid artery bruits. # Right knee pain: Right knee x-ray will be ordered. Total time spent with patient was 45 minutes, with over half being exiq-qr-onuu time. Case discussed with collaborating physician Dena Toussaint who reviewed the assessment and plan. Chart, medications, labs, vital signs reviewed. Dictation was accomplished with the use of [employer] voice recognition software, prone to medical misidentifications and grammatical errors. This is unintentional and the practitioner does try to identify and correct these, but some could still be present. Please do not hesitate to contact practitioner for clarification. All questions answered to patients satisfaction. Patient verbalized understanding of diagnosis and treatments explained. To call sooner prior to next visit it any questions/concerns arise. 06/26/2025 Traumatic brain injury, without loss of consciousness, initial encounter (ICD-10 - S06.9X0A) #Hypertension: Compliant with amlodipine and losartan. BP well controlled. # Testosterone- was previously on Xyosted, but cannot afford. Recheck CBC and testoserone. # TBI. Ongoing issue, reports not getting better. Consider Aricept? Also consider treating depression. Recommend group therapy/support groups. Consider refer to [facility]. Will reach out of [facility]. Pt hsa been losing balance more. COnsider repeat brain imaging. # Balance issues. Orthostatics overall unremarkbale. No carotid artery bruits. # Right knee pain: Right knee x-ray will be ordered. Total time spent with patient was 45 minutes, with over half being cyex-bi-yufy time. Case discussed with collaborating physician Dena Toussaint who reviewed the assessment and plan. Chart, medications, labs, vital signs reviewed. Dictation was accomplished with the use of [employer] voice recognition software, prone to medical misidentifications and grammatical errors. This is unintentional and the practitioner does try to identify and correct these, but some could still be present. Please do not hesitate to contact practitioner for clarification. All questions answered to patients satisfaction. Patient verbalized understanding of diagnosis and treatments explained. To call sooner prior to next visit it any questions/concerns arise. 06/26/2025 Hypogonadism in male (ICD-10 - E29.1) #Hypertension: Compliant with amlodipine and losartan. BP well controlled. # Testosterone- was previously on Xyosted, but cannot afford. Recheck CBC and testoserone. # TBI. Ongoing issue, reports not getting better. Consider Aricept? Also consider treating depression. Recommend group therapy/support groups. Consider refer to [facility]. Will reach out of [facility]. Pt hsa been losing balance more. COnsider repeat brain imaging. # Balance issues. Orthostatics overall unremarkbale. No carotid artery bruits. # Right knee pain: Right knee x-ray will be ordered. Total time spent with patient was 45 minutes, with over half being [id number] time. Case discussed with collaborating physician Dena Toussaint who reviewed the assessment and plan. Chart, medications, labs, vital signs reviewed. Dictation was accomplished with the use of DailyBurn voice recognition software, prone to medical misidentifications [...] Recommend group therapy/support groups. Consider refer to [facility]. Will reach out of [facility]. Pt hsa been losing balance more. COnsider repeat brain imaging. # Balance issues. Orthostatics overall unremarkbale. No carotid artery bruits. Total time spent with patient was 45 minutes, with over half being zqyv-[id number] time. Case discussed with collaborating physician Dena Toussaint who reviewed the assessment and plan. Chart, medications, labs, vital signs reviewed. Dictation was accomplished with the use of DailyBurn voice recognition software, prone to medical misidentifications [...] Recommend group therapy/support groups. Consider refer to [facility] Case discussed with collaborating physician Dena Toussaint who reviewed the assessment and plan. Chart, medications, labs, vital signs reviewed. Dictation was accomplished with the use of DailyBurn voice recognition software, prone to medical misidentifications [...] log exercise and discussed fitness Apps like QuantiSense which can help keep log off calories [...] Dictation was accomplished with the use of DailyBurn voice recognition software, prone to medical misidentifications [...] log exercise and discussed fitness Apps like QuantiSense which can help keep log off calories [...] Dictation was accomplished with the use of DailyBurn voice recognition software, prone to medical misidentifications [...] Recommend group therapy/support groups. Consider refer to [facility] Case discussed with collaborating physician Dena Toussaint who reviewed the assessment and plan. Chart, medications, labs, vital signs reviewed. Dictation was accomplished with the use of DailyBurn voice recognition software, prone to medical misidentifications [...] Recommend group therapy/support groups. Consider refer to [facility]. Will reach out of [facility]. Pt hsa been losing balance more. COnsider repeat brain imaging. # Balance issues. Orthostatics overall unremarkbale. No carotid artery bruits. Total time spent with patient was 45 minutes, with over half being [id number] time. Case discussed with collaborating physician Dnea Toussaint who reviewed the assessment and plan. Chart, medications, labs, vital signs reviewed. Dictation was accomplished with the use of DailyBurn voice recognition software, prone to medical misidentifications and grammatical errors. This is unintentional and the practitioner does try to identify and correct these, but some could still be present. Please do not hesitate to contact practitioner for clarification. All questions answered to patients satisfaction. Patient verbalized understanding of diagnosis and treatments explained. To call sooner prior to next visit it any questions/concerns arise. 06/26/2025 Current episode of major depressive disorder without prior episode, unspecified depression episode severity (ICD-10 - F32.9) #Hypertension: Compliant with amlodipine and losartan. BP well controlled. # Testosterone- was previously on Xyosted, but cannot afford. Recheck CBC and testoserone. # TBI. Ongoing issue, reports not getting better. Consider Aricept? Also consider treating depression. Recommend group therapy/support groups. Consider refer to [facility]. Will reach out of [facility]. Pt hsa been losing balance more. COnsider repeat brain imaging. # Balance issues. Orthostatics overall unremarkbale. No carotid artery bruits. # Right knee pain: Right knee x-ray will be ordered. Total time spent with patient was 45 minutes, with over half being [id number] time. Case discussed with collaborating physician Dena Toussaint who reviewed the assessment and plan. Chart, medications, labs, vital signs reviewed. Dictation was accomplished with the use of DailyBurn voice recognition software, prone to medical misidentifications and grammatical errors. This is unintentional and the practitioner does try to identify and correct these, but some could still be present. Please do not hesitate to contact practitioner for clarification. All questions answered to patients satisfaction. Patient verbalized understanding of diagnosis and treatments explained. To call sooner prior to next visit it any questions/concerns arise. 06/26/2025 B12 deficiency (ICD-10 - E53.8) #Hypertension: Compliant with amlodipine and losartan. BP well controlled. # Testosterone- was previously on Xyosted, but cannot afford. Recheck CBC and testoserone. # TBI. Ongoing issue, reports not getting better. Consider Aricept? Also consider treating depression. Recommend group therapy/support groups. Consider refer to [facility]. Will reach out of [facility]. Pt hsa been losing balance more. COnsider repeat brain imaging. # Balance issues. Orthostatics overall unremarkbale. No carotid artery bruits. # Right knee pain: Right knee x-ray will be ordered. Total time spent with patient was 45 minutes, with over half being dhti-eq-[id number] time. Case discussed with collaborating physician Dena Toussaint who reviewed the assessment and plan. Chart, medications, labs, vital signs reviewed. Dictation was accomplished with the use of DailyBurn voice recognition software, prone to medical misidentifications [...] log exercise and discussed fitness Apps like QuantiSense which can help keep log off calories [...] Dictation was accomplished with the use of DailyBurn voice recognition software, prone to medical misidentifications [...] Recommend group therapy/support groups. Consider refer to [facility]. Will reach out of [facility]. Pt hsa been losing balance more. COnsider repeat brain imaging. # Balance issues. Orthostatics overall unremarkbale. No carotid artery bruits. Total time spent with patient was 45 minutes, with over half being rheh-my-usja time. Case discussed with collaborating physician Dena Toussaint who reviewed the assessment and plan. Chart, medications, labs, vital signs reviewed. Dictation was accomplished with the use of DailyBurn voice recognition software, prone to medical misidentifications [...] Recommend group therapy/support groups. Consider refer to [facility] Case discussed with collaborating physician Dena Toussaint who reviewed the assessment and plan. Chart, medications, labs, vital signs reviewed. Dictation was accomplished with the use of DailyBurn voice recognition software, prone to medical misidentifications [...] Recommend group therapy/support groups. Consider refer to [facility] Case discussed with collaborating physician Dena Toussaint who reviewed the assessment and plan. Chart, medications, labs, vital signs reviewed. Dictation was accomplished with the use of DailyBurn voice recognition software, prone to medical misidentifications [...] log exercise and discussed fitness Apps like QuantiSense which can help keep log off calories [...] to next visit it any questions/concerns arise. 06/26/2025 Encounter for examination of blood pressure without abnormal findings (ICD-10 - Z01.30) #Hypertension: Compliant with amlodipine and losartan. BP well controlled. # Testosterone- was previously on Xyosted, but cannot afford. Recheck CBC and testoserone. # TBI. Ongoing issue, reports not getting better. Consider Aricept? Also consider treating depression. Recommend group therapy/support groups. Consider refer to [facility]. Will reach out of [facility] [place]. Pt hsa been losing balance more. COnsider repeat brain imaging. # Balance issues. Orthostatics overall unremarkbale. No carotid artery bruits. # Right knee pain: Right knee x-ray will be ordered. Total time spent with patient was 45 minutes, with over half being ozwo-dt-vodu time. Case discussed with collaborating physician Dena Toussaint who reviewed the assessment and plan. Chart, medications, labs, vital signs reviewed. Dictation was accomplished with the use of DailyBurn voice recognition software, prone to medical misidentifications [...] Recommend group therapy/support groups. Consider refer to [facility]. [facility] Pt hsa been losing balance more. COnsider repeat brain imaging. # Balance issues. Orthostatics overall unremarkbale. No carotid artery bruits. Total time spent with patient was 45 minutes, with over half being fqkq-ok-[id number] time. Case discussed with collaborating physician Dena Toussaint who reviewed the assessment and plan. Chart, medications, labs, vital signs reviewed. Dictation was accomplished with the use of DailyBurn voice recognition software, prone to medical misidentifications [...] log exercise and discussed fitness Apps like QuantiSense which can help keep log off calories [...] Dictation was accomplished with the use of DailyBurn voice recognition software, prone to medical misidentifications [...] Treatment Pending Test Test Name Order Date X ray : Knee, right 06/26/2025 Echocardiogram 03/31/2022 X ray : Chest with 2 views 07/20/2023 X ray : Chest with 2 views 12/08/2023 D-Dimer 03/31/2022 Ultrasound : Kidneys 04/24/2021 SEX HORMONE BINDING GLOBULIN (SHBG) 09/16 SEX HORMONE BINDING GLOBULIN (SHBG) 06/16 TESTOSTERONE, FREE AND TOTAL (MALES >15 YRS OLD) 10/21/2023 BNP (B -Type Natriuretic Peptide) 2021 MAGNESIUM 06/26/2024 LIPID PANEL, STANDARD 09/26/2024 LIPID PANEL, STANDARD 04/06/2024 LIPID PANEL, STANDARD 09/17/2021 LIPID PANEL, STANDARD 01/23/2025 COMPREHENSIVE METABOLIC PANEL 01/23/2025 COMPREHENSIVE METABOLIC PANEL 09/17/2021 COMPREHENSIVE METABOLIC PANEL 04/06/2024 COMPREHENSIVE METABOLIC PANEL 08/25/2023 COMPREHENSIVE METABOLIC PANEL 03/31/2022 COMPREHENSIVE METABOLIC PANEL 06/26/2024 COMPREHENSIVE METABOLIC PANEL 09/26/2024 CBC (INCLUDES DIFF/PLT) 04/06/2024 CBC (INCLUDES DIFF/PLT) 03/31/2022 CBC (INCLUDES DIFF/PLT) 09/17/2021 CBC (INCLUDES DIFF/PLT) 10/29/2022 CBC (INCLUDES DIFF/PLT) 09/26/2024 CBC (INCLUDES DIFF/PLT) 01/23/2025 CBC (INCLUDES DIFF/PLT) 06/26/2025 URINALYSIS, COMPLETE 01/23/2025 URINALYSIS, COMPLETE 03/31/2022 URINALYSIS, COMPLETE 04/06/2024 URINALYSIS, COMPLETE 09/26/2024 URINALYSIS, COMPLETE W/REFLEX TO CULTURE 09/17/2021 HEMOGLOBIN A1c 09/17/2021 HEMOGLOBIN A1c 09/26/2024 HEMOGLOBIN A1c 04/06/2024 HEMOGLOBIN A1c 01/23/2025 ESTRADIOL 06/26/2025 VITAMIN B12 01/23/2025 VITAMIN B12 04/06/2024 VITAMIN B12 09/26/2024 PSA (FREE AND TOTAL) 04/06/2024 PSA, TOTAL 06/26/2025 TSH 01/23/2025 TSH 04/06/2024 TSH 09/26/2024 VITAMIN D,25-OH,TOTAL,IA 04/06/2024 TESTOSTERONE, TOTAL, MS 09/26/2024 TESTOSTERONE, TOTAL, MS 01/23/2025 TESTOSTERONE, FREE (DIALYSIS) AND TOTAL, MS 10/29/2022 TESTOSTERONE 06/26/2025 Sex Hormone Binding Globulin 01/23/2025 Next Appt Details Provider Name:RIAN SHAVER, 10/04/2025 10:00:00 AM, [address], [place], [address], Insurance Providers Payer Name Payer Address Payer Phone Subscriber Number Group Number Insured Name Patient Relationship to Insured Coverage Start Date Coverage End Date [facility] [address] [place] [address] [phone] [id number] FIELD Self - patient is [...]
--- OUTSIDE RECORDS SUMMARY | 2025-07-28 12:49 | XMS_ITS | Clinical Summary ---
Author Organization [facility] Address [address] [place] [address] Phone Care Team Providers Care Gill Box Fixer Name Role Phone Cas Toussaint MD Primary Care Provider [phone] Encounters Date Type Department Care Team Description 06/20/2025 10:59 AM EST - 06/20/2025 11:59 PM EST Hospital Encounter [facility] Xray [address] [place] [id number] Malignant neoplasm of kidney, unspecified laterality ([facility] V24, [facility] V28) Discharge Disposition: Home or Self Care 06/20/2025 10:53 AM EST - 06/20/2025 11:59 PM EST Hospital Encounter [facility] CT Scan [address] [place] [phone] Malignant neoplasm of kidney, unspecified laterality ([facility] V24, [facility] V28) Discharge Disposition: Home or Self Care from Last 3 Months Medical History Medical History Date Comments Allergic [...] on file Sexual Orientation Not on file Last Filed Vital Signs Vital Sign Reading [...] 05/08/2022 10:05 AM EDT Plan of Treatment Health Maintenance Due Date Last Done Comments [...] Depression Screening 08/16/2024 COVID-19 Vaccine (1 - 2024-2 6 season) 2025 Influenza Vaccine (#1) 2025 DTaP,Tdap,and [...] on patient's age to complete this topic Procedures Procedure Name Priority Date/Time Associated Diagnosis Comments CT ABDOMEN PELVIS WO AND W CONTRAST Routine 06/20/2025 11:58 AM EST Malignant neoplasm of kidney, unspecified laterality (CMS/HCC V24, CMS/HCC V28) XR CHEST 2 VIEWS Routine 06/20/2025 11:1 1 AM EST Malignant neoplasm of kidney, unspecified laterality (CMS/HCC V24, CMS/HCC V28) from Last 3 Months Results * CT Abdomen Pelvis wo and w Contrast (06/20/2025 11:58 AM EST) Anatomical Region Laterality Modality Body Computed Tomogra phy 06/20/2025 12:4 7 PM EST Impressions 06/20/2025 1:12 PM EST No evidence of residual or recurrent disease at the site of prior cryoablation. No new suspicious abnormality. -------- FINAL REPORT -------- Dictated By: Cas Boyd Dictated Date: 06/20/2025 12:47 ET Assigned Physician: Cas Boyd Reviewed and Electronically Signed By: Cas Boyd Signed Date: 06/20/2025 13:12 ET Workstation ID: [id number] Transcribed By: Self Edit Transcribed Date: 06/20/2025 12:47 ET Narrative 06/20/2025 1:12 PM EST EXAMINATION: CT ABDOMEN AND PELVIS WITHOUT AND WITH CONTRAST CLINICAL INFORMATION: Malignant neoplasm of kidney. Previous report indicates history of renal cell carcinoma post cryoablation. COMPARISON: Portions of previous CT 05/30/24 TECHNIQUE: Multidetector CT. Helical examination of the abdomen and pelvis. CONTRAST: The exam was performed before and after the IV administration of contrast. Examination of the abdomen performed before contrast. Examination of the abdomen performed during the arterial phase. Examination of the abdomen and pelvis performed during the portal venous phase. DLP: 3113 mGy-cm Imaging before and after the IV administration of contrast. Dose optimization was performed including the use of low-dose iterative reconstruction technique with automatic exposure control based on patient size. Amount of contrast: 90 mL Type of contrast: Isovue-370 Volume of contrast discarded: 0 mL FINDINGS: KIDNEYS: RENAL SIZE: The right renal length: At least 10.5 cm in greatest length The left renal length: At least 10.8 cm in greatest length [...] on either side. MASSES: There are no suspicious renal masses. There is no suspicious enhancement at the cryoablation site to suggest residual or recurrent disease. No new suspicious abnormality. UROTHELIUM: There is no urothelial mass or focal area of thickening. Imaging [...] veins. URINARY BLADDER: The bladder is not well distended. No focal abnormality. ADRENAL GLANDS: Within normal limits PELVIC VISCERA: No suspicious abnormality. LIVER: There is a circumscribed fluid attenuating nonenhancing 1.4 cm mass at the periphery of hepatic segment 5 which is likely a cyst. This is unchanged since at least 05/30/24. There are unchanged small cysts in hepatic segment IVb and hepatic segment 7. No new suspicious focal liver lesion. BILIARY TRACT: No opaque gallstone or biliary dilation SPLEEN: Within normal limits PANCREAS: Normal GASTROINTESTINAL TRACT: No localized colonic wall thickening. Normal variant [...] fluid. The portal vein enhances. VISUALIZED LOWER CHEST: No suspicious abnormality. There may be a few tiny granulomata in the posterior left lower lobe unchanged. MUSCULOSKELETAL: No acute or suspicious osseous abnormality. Procedure Note Cas Boyd MD - 06/20/2025 EXAMINATION: CT ABDOMEN AND PELVIS WITHOUT AND WITH CONTRAST CLINICAL INFORMATION: Malignant neoplasm of kidney. Previous report indicates history of renalcell carcinoma post cryoablation. COMPARISON: Portions of previous CT 05/30/24 TECHNIQUE: Multidetector CT. Helical examination of the abdomen and pelvis. CONTRAST: The exam was performed before and after the IV administrationof contrast. Examination of the abdomen performed before contrast.Examination of the abdomen performed during the arterial phase.Examination of the abdomen and pelvis performed during the portal venousphase. DLP: 3113 mGy-cm Imaging before and after the IV administration of contrast. Dose optimization was performed including the use of low-dose iterativereconstruction technique with automatic exposure control based on patientsize. Amount of contrast: 90 mL Type of contrast: Isovue-370 Volume of contrast discarded: 0 mL FINDINGS: KIDNEYS: RENAL SIZE: The right renal length: At least 10.5 cm in greatest length The left renal length: At least 10.8 cm in greatest length RENAL CONTOUR: There is a contour abnormality posteromedial right kidney at theinterpolar region which likely correlates to a site of previouscryoablation. CALCULI: There are no opaque urinary calculi. NEPHROGRAM: The nephrograms are symmetric other than the presumed cryoablation site. COLLECTING SYSTEM CALIBER: There is no dilation of the urinary collecting system on either side. MASSES: There are no suspicious renal masses. There is no suspicious enhancementat the cryoablation site to suggest residual or recurrent disease. No new suspicious abnormality. UROTHELIUM: There is no urothelial mass or focal area of thickening. Imaging performedprior to the excretory phase. VASCULATURE: There are 2 patent right renal arteries. There is a single patent leftrenal artery. There is a normal variant retroaortic left renal vein. There appear to be2 separate left renal veins. The central aspect of the renal veins enhancebilaterally. There are 2 right renal veins. URINARY BLADDER: The bladder is not well distended. No focal abnormality. ADRENAL GLANDS: Within normal limits PELVIC VISCERA: No suspicious abnormality. LIVER: There is a circumscribed fluid attenuating nonenhancing 1.4 cm massat the periphery of hepatic segment 5 which is likely a cyst. This isunchanged since at least 05/30/24. There are unchanged small cysts inhepatic segment IVb and hepatic segment 7. No new suspicious focal liver lesion. BILIARY TRACT: No opaque gallstone or biliary dilation SPLEEN: Within normal limits PANCREAS: Normal GASTROINTESTINAL TRACT: No localized colonic wall thickening. Normalvariant position of the cecum slightly to left of midline in the pelvis.No localized fat stranding. No significant small bowel dilation. There area few nonspecific mesenteric lymph nodes with some mild fat stranding.These are likely unchanged. There may be a minimal hiatal hernia. Thereis a diverticulum in the duodenum. ABDOMINAL WALL: No significant hernia is appreciated. LYMPHOVASCULAR STRUCTURES AND FLUID: There is no abdominal aorticaneurysm. There are no measurably enlarged lymph nodes. There is no freeintraperitoneal fluid. The portal vein enhances. VISUALIZED LOWER CHEST: No suspicious abnormality. There may be a few tinygranulomata in the posterior left lower lobe unchanged. MUSCULOSKELETAL: No acute or suspicious osseous abnormality. IMPRESSION: No evidence of residual or recurrent disease at the site of priorcryoablation. No new suspicious abnormality. -------- FINAL REPORT -------- Dictated By: Cas Boyd Dictated Date: 06/20/2025 12:47 ET Assigned Physician: Cas Boyd Reviewed and Electronically Signed By: Cas Boyd Signed Date: 06/20/2025 13:12 ET Workstation ID: [id number] Transcribed By: Self Edit Transcribed Date: 06/20/2025 12:47 ET us Mayra HUMPHREY IMG CT PROCEDURES Final Result * XR Chest 2 Views (06/20/2025 11:11 AM EST) Anatomical Region Laterality Modality Body Radiographic Stephanie ging 06/20/2025 12:4 4 PM EST Impressions 06/20/2025 12:47 PM EST No acute chest disease. Specifically no evidence of pulmonary metastatic disease -------- FINAL REPORT -------- Dictated By: Cas Boyd Dictated Date: 06/20/2025 12:44 ET Assigned Physician: Cas Boyd Reviewed and Electronically Signed By: Cas Boyd Signed Date: 06/20/2025 12:47 ET Workstation ID: [id number] Transcribed By: Self Edit Transcribed Date: 06/20/2025 12:44 ET Narrative 06/20/2025 12:47 PM EST EXAMINATION: CHEST CLINICAL INFORMATION: Malignant neoplasm of kidney COMPARISON: Frontal view 05/17/22 TECHNIQUE: 2 views of the chest FINDINGS: There is slight tortuosity aorta. The cardiac size is within normal limits. There is no definite hilar mass or edema. The medial right upper chest is limited due to the overlying bone and cartilage. No pleural fluid or pneumothorax No suspicious focal bony lesion. Procedure Note Cas Boyd MD - 06/20/2025 EXAMINATION: CHEST CLINICAL INFORMATION: Malignant neoplasm of kidney COMPARISON: Frontal view 05/17/22 TECHNIQUE: 2 views of the chest FINDINGS: There is slight tortuosity aorta. The cardiac size is within normallimits. There is no definite hilar mass or edema. The medial right upper chest is limited due to the overlying bone andcartilage. No pleural fluid or pneumothorax No suspicious focal bony lesion. IMPRESSION: No acute chest disease. Specifically no evidence of pulmonary metastaticdisease -------- FINAL REPORT -------- Dictated By: Cas Boyd Dictated Date: 06/20/2025 12:44 ET Assigned Physician: Cas Boyd Reviewed and Electronically Signed By: Cas Boyd Signed Date: 06/20/2025 12:47 ET Workstation ID: [id number] Transcribed By: Self Edit Transcribed Date: 06/20/2025 12:44 ET us Mayra HUMPHREY IMG XR PROCEDURES Final Result from Last 3 Months [facility] Advance Directives Documents on File Type Date Recorded Patient Fitness Plan Coordinator Expl anation Health Care Decision (hx) 05/18/2022 AD KUMAR DIRECTIVE Health Care Decision (hx) 05/18/2022 AD KUMAR DIRECTIVE Health Care Decision (hx) 05/18/2022 AD KUMAR DIRECTIVE Health Care Decision (hx) 05/18/2022 AD KUMAR DIRECTIVE Health Care Decision (hx) 05/18/2022 AD KUMAR DIRECTIVE Care Teams Gill Box Fixer Relationship Specialty Start Date End Date Cas Toussaint MD [address] [place] [id number] PCP - General Internal Medicine 04/30/22
== END 2025-07-28 12:46 | disposition home or self-care (01) ==
LOC: HO.MRI 12:45
PROVIDERS: PCP Internal Medicine; Visit Provider Nurse Practitioner Family
DX: R41.3 Other amnesia (principal); F09 Unspecified mental disorder due to known physiological condition; R42 Dizziness and giddiness
CPT/HCPCS: 70553; A9585

== ENCOUNTER → 2025-07-28 12:48 | Outpatient (BNV) | payer OTHER, SELFPAY | PROVIDERS: PCP Internal Medicine; Visit Provider Radiology Diagnostic Radiology | DX: F09 Unspecified mental disorder due to known physiological condition (principal) | CPT/HCPCS: 70553 ==